=== PATIENT | male | born 1950 | race Caucasian/White ===

== ENCOUNTER 2020-11-22 00:19 | Inpatient (IN) | payer MEDICARE, SELFPAY ==
[2020-11-22] VITALS (12 sets, daily range): BP systolic 104–166; BP diastolic 68–84; PULSE 54–118; RESP 18–27; TEMP 36.4–37.3; O2SAT 91–99; BMI 31.0; BMI 31.4
--- NOTE | 2020-11-22 | ECG_ITS ---
Test Reason : CP Blood Pressure : / mmHG Vent. Rate : 096 BPM Atrial Rate : 096 BPM P-R Int : 144 ms QRS Dur : 084 ms QT Int : 342 ms P-R-T Axes : 033 -13 085 degrees QTc Int : 432 ms Sinus rhythm with Premature atrial complexes Minimal voltage criteria for LVH, may be normal variant Nonspecific ST and T wave abnormality Abnormal ECG No previous ECGs available Referred By: Generic ED Physician Electronically Signed By:LOU LOZOYA
--- NOTE | ~2020-11-22 | MR_ITS ---
EXAMINATION: MR BRAIN WITHOUT AND WITH CONTRAST CLINICAL INFORMATION: Bacteremic. Altered mental status. Septic emboli. COMPARISON: None available. TECHNIQUE: MRI of the brain was obtained using routine sequences without and following the administration of 9 mL of Gadavist intravenous contrast. FINDINGS: No focal restricted diffusion is demonstrated to suggest acute or subacute cerebral ischemia. No evidence of acute or chronic hemorrhagic products on heme-sensitive imaging. Scattered periventricular and deep white matter T2 FLAIR hyperintensities consistent with mild underlying microangiopathy. Proportional prominence of the ventricles and sulcal spaces without evidence of obstructive hydrocephalus. No abnormal mass effect. No midline shift. Normal appearance of the pituitary gland. Mildly prominent CSF space posterior to the cerebellum. Normal positioning of the cerebellar tonsils. Normal arterial and venous vascular flow voids are present. No abnormal contrast enhancement. Normal, homogeneous marrow signal. Mild mucosal thickening of the paranasal sinuses. No signal abnormalities within the mastoids. MR/MR head/brain wo/w con IMPRESSION: 1. No acute intracranial abnormalities. No abnormal intracranial enhancement. 2. 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
--- NOTE | ~2020-11-22 | CT_ITS ---
EXAMINATION: CT LUMBAR SPINE CLINICAL INFORMATION: Follow-up psoas abscess. COMPARISON: CT lumbar spine from 11/29/[address] guided drainage imaging from 11/30/2020. TECHNIQUE: Multidetector CT imaging examination of the lumbar spine was performed with intravenous administration of 85 mL Omnipaque 350. No contrast reaction reported. This CT examination was performed using dose optimization techniques as appropriate, variously including the following: *Automated exposure control *Adjustment of mA and/or kV according to patient size (this includes techniques or standardized protocols for targeted exams where dose is matched to indication/reason for exam; i.e. extremities or head) *Use of iterative reconstruction technique DLP: 447 mGy-cm FINDINGS: Again noted is multilevel degenerative arthropathy of lumbar spine. The vertebral body heights are maintained. No acute fractures. Degenerative disc disease is severe at L1-L2 and L5-S1 (as manifest by marked loss of disc space, vacuum disc phenomenon, endplate sclerosis, degenerative endplate irregularity and osteophyte formation). No evidence of acute erosive changes at the vertebral endplates. The intervertebral disc heights are maintained at L2-L3, L3-L4 and L4-L5. Mild vacuum disc phenomenon at L4-L5. Again noted is mild degenerative retrolisthesis at L1-L2 and 0.5 cm grade 1 anterolisthesis at L5-S1. The facet osteoarthritis is severe at L5-S1. At L4-L5, disc bulge, ligamentum flavum hypertrophy and facet hypertrophy cause multifactorial spinal canal stenosis. The bulging disc encroaches upon the neural foramina and causes mild right and at least moderate left neural foraminal stenosis at the L4-L5 level. At L5-S1, the degenerative changes cause mild narrowing of the central spinal canal. There is severe bilateral neural foraminal stenosis at L5-S1 with disc osteophyte complex impinging upon the right and left exiting L5 nerve roots. A small amount of fluid noted medial to the right psoas muscle at the L4-L5 level is unchanged. Also, there are persistent patchy areas of fluid lateral to the right psoas muscle. The most proximal pocket of fluid currently measures approximately 1.9 x 2.6 cm (image 35, series 7), compared to 1.6 x 2.7 cm on 11/29/2020. The next lower pocket of fluid lateral to the psoas currently measures 1.9 x 2.6 cm, compared to 1.9 x 2.6 cm on prior exam. Further inferiorly, at the L4 level lateral to the psoas, there are two other pockets of fluid that currently measure 1.6 x 2.2 cm and 1.9 x 2.3 cm (compared to 1.5 x 1.6 cm and 1.7 x 2.1 cm on 11/29/2020). CT/CT lumbar spine w con IMPRESSION: * No new pathology in the degenerated lumbar spine compared to 11/29/2020. * Degenerative disc disease is severe at L1-L2 and L5-S1. There is multifactorial spinal canal stenosis at L4-L5. * Neural foraminal stenosis is severe bilaterally at L5-S1. * No new vertebral endplate erosions. No CT imaging evidence of infectious discitis or osteomyelitis. * A small amount of fluid medial to the right psoas muscle at the L4 level is unchanged. The other patchy pockets of fluid lateral to the right psoas muscle are either stable or slightly increased in size compared to 11/29/2020.
--- NOTE | ~2020-11-22 | CT_ITS ---
EXAMINATION: CT SOFT TISSUE NECK WITH CONTRAST CLINICAL INFORMATION: Abnormal gallium scan. Sepsis. COMPARISON: Gallium scan 11/25/2020. TECHNIQUE: Following the intravenous administration of 60 mL of Omnipaque 350 intravenous contrast, helical imaging was performed in the axial plane with generation of coronal and sagittal reformatted images. This CT examination was performed using dose optimization techniques as appropriate, variously including the following: *Automated exposure control *Adjustment of mA and/or kV according to patient size (this includes techniques or standardized protocols for targeted exams where dose is matched to indication/reason for exam; i.e. extremities or head) *Use of iterative reconstruction technique DLP: 643 mGy-cm FINDINGS: There are mildly prominent lymph nodes at multiple levels in the neck bilaterally, as well as in the bilateral supraclavicular regions. There is mild stranding in the supraclavicular fat. There is hazy increased attenuation around the thyroid gland bilaterally and in the superior mediastinum. There are no focal fluid collections. The parotid glands are homogeneous in attenuation. The submandibular glands are normal. No contour abnormality or pathologic enhancement is seen within the oral cavity or pharyngeal mucosal space. The laryngeal structures are normal. There is good opacification of the vascular structures. There are mild atheromatous calcifications of the bilateral carotid bifurcations. No extra mucosal soft tissue mass or fluid collection is seen. No retropharyngeal fluid collection is seen. The thyroid gland itself is normal in size. There is no mediastinal lymphadenopathy. There are trace left and small right pleural effusions. There are emphysematous changes in the lungs bilaterally. The mastoid air cells and the paranasal sinuses are well-aerated. The temporomandibular joints are normal. No periapical disease is identified. There are no acute osseous findings. There are multilevel spondylitic changes in the cervical spine. The carotid canals are covered by markedly thin bone in the sphenoid sinuses bilaterally. There is a shaggy cisterna magna. The imaged portions of the brain parenchyma are unremarkable. CT/CT soft tissue neck w con IMPRESSION: 1. There is no cervical lymphadenopathy, but there are multiple small lymph nodes at multiple levels in the neck. 2. There is increased attenuation in the supraclavicular fat bilaterally, and there is hazy increased attenuation around the thyroid gland bilaterally and in the superior mediastinum. These findings are nonspecific and may be consistent with an inflammatory process. 3. There are pleural effusions bilaterally as described above. There are emphysematous changes in the upper lung benitez.
--- NOTE | ~2020-11-22 | CT_ITS ---
EXAMINATION CT CHEST, ABDOMEN AND PELVIS WITHOUT CONTRAST CLINICAL INFORMATION: Chest and abdominal pain. Elevated white blood cell count. COMPARISON: None. TECHNIQUE: Multidetector volumetric CT imaging of the chest, abdomen and pelvis without the use of intravenous contrast. Coronal and sagittal reformats were reviewed. This CT examination was performed using dose optimization techniques as appropriate, variously including the following: *Automated exposure control *Adjustment of mA and/or kV according to patient size (this includes techniques or standardized protocols for targeted exams where dose is matched to indication/reason for exam; i.e. extremities or head) *Use of iterative reconstruction technique DLP: 1044 mGy-cm. FINDINGS: CHEST LUNGS/PLEURA: The lungs are clear with no evidence of inflammation or nodules. There is no pleural effusion. No pleural mass or thickening. MEDIASTINUM/RUDOLPH: Normal heart size. No pericardial effusion. Coronary calcifications. No mediastinal or hilar adenopathy. CHEST WALL/AXILLA: Unremarkable. ABDOMEN/PELVIS HEPATOBILIARY: Liver normal in size, contour and morphology. No suspicious lesions. No intra or extrahepatic biliary dilation. Gallbladder unremarkable. PANCREAS: Unremarkable. SPLEEN: Unremarkable. ADRENAL GLANDS: There is a 2.6 cm nodule within the right adrenal gland with attenuation of 14 Hounsfield units. Left adrenal gland is normal. KIDNEYS, URETERS AND BLADDER: Kidneys are normal in size, axis and morphology. There are numerous bilateral nonobstructive intrarenal calculi, numbering at least 9 within the left kidney and 6 within the right kidney. The largest calculi within the left kidney measure 10 x 5 mm within the upper pole and 4 mm within the lower pole. Largest calculus within the right kidney measures 3 mm. No ureteral calculi. No hydronephrosis. There are bilateral simple fluid attenuating renal cortical and parapelvic cysts which are benign and require no further follow-up. GASTROINTESTINAL TRACT: No bowel related abnormalities. PELVIC VISCERA: Mild prostatomegaly. Seminal vesicles unremarkable. LYMPH NODES: No lymphadenopathy. PERITONEUM/BODY WALL: No peritoneal implants. No ascites. VASCULAR STRUCTURES: Unremarkable. OSSEOUS STRUCTURES No acute or suspicious osseous abnormalities. CT/CT abdomen pelvis wo con IMPRESSION: * No etiology for the patient's symptomatology is identified. * Bilateral nonobstructive intrarenal calculi as described. * Incidental 2.6 cm right adrenal nodule with lobe of indeterminate attenuation of [address] adrenal mass protocol on a nonemergent basis for further evaluation.
--- NOTE | ~2020-11-22 | XR_ITS ---
EXAMINATION: XR CHEST CLINICAL INFORMATION: Shortness of breath COMPARISON: Previous chest CT from yesterday TECHNIQUE: Frontal view of the chest was obtained. FINDINGS: The patient is rotated to the left. The cardiac and mediastinal contours are normal. The lung volumes are low. There is bibasilar atelectasis or small infiltrates, left greater than right. This appears increased from yesterday's exam. There is no significant pleural effusion. There is no pneumothorax. There are degenerative changes of the spine. XR/XR chest 1V IMPRESSION: Low lung volumes and increasing bibasilar atelectasis or small infiltrates.
--- NOTE | ~2020-11-22 | CT_ITS ---
EXAMINATION: CT ANGIOGRAM OF THE CHEST WITH AND WITHOUT CONTRAST (CT PULMONARY ANGIOGRAM FOR PE) CLINICAL INFORMATION: Reason for Exam hypoxia, tachycardia, rule out pe COMPARISON: Previous chest x-ray from earlier the same day and chest CT scan from yesterday TECHNIQUE: Prior to contrast administration, noncontrast localization images were obtained. Subsequently, multidetector volumetric imaging was performed from the thoracic inlet to below the diaphragms following the administration of 65 mL Omnipaque 350 intravenous contrast. No contrast reaction reported Sagittal, coronal, and MIP oblique sagittal reformatted images were obtained on the CT workstation, uploaded to PACS, and reviewed. This CT examination was performed using dose optimization techniques as appropriate, variously including the following: *Automated exposure control *Adjustment of mA and/or kV according to patient size (this includes techniques or standardized protocols for targeted exams where dose is matched to indication/reason for exam; i.e. extremities or head) *Use of iterative reconstruction technique Total exam dose-length product 3-4 mGy-cm FINDINGS: QUALITY OF STUDY/CONTRAST BOLUS: Satisfactory. PULMONARY ARTERIES: No central or segmental pulmonary emboli. THORACIC AORTA: No aneurysm or dissection. LUNG: There is new bilateral lower lobe atelectasis/consolidation right greater than left. PLEURA: There are new trace bilateral pleural effusions. MEDIASTINUM: The heart is enlarged. No pericardial effusion. No hilar or mediastinal lymphadenopathy. No evidence of septal bowing or right heart strain. There is oral contrast seen in the esophagus. CHEST WALL/AXILLA: No axillary or internal mammary lymphadenopathy. OSSEOUS STRUCTURES: No acute or suspicious osseous abnormality. There are degenerative changes of the spine. UPPER ABDOMEN: Stable right adrenal nodule and right renal cyst. Colon is slightly distended and extends large amount of stool. No reflux of contrast into the hepatic veins to suggest elevated right heart pressures. CT/CT angio chest PE protocol IMPRESSION: No pulmonary embolism. Low lung volumes. New atelectasis or consolidation at the lung bases and trace bilateral pleural effusions. Stable abdominal findings. VTE: negative
--- NOTE | ~2020-11-22 | CT_ITS ---
EXAMINATION: CT LUMBAR SPINE with contrast. CLINICAL INFORMATION: Bacteremia with abnormal gallium scan of lumbar spine. COMPARISON: CT abdomen pelvis 11/22/2020. Gallium scan 11/26/2020. TECHNIQUE: Axial 2 mm thin and reformatted 2 mm thin sagittal and coronal images of lumbar spine were obtained following IV 85 mL Omnipaque 350. This CT examination was performed using dose optimization techniques as appropriate, variously including the following: *Automated exposure control *Adjustment of mA and/or kV according to patient size (this includes techniques or standardized protocols for targeted exams where dose is matched to indication/reason for exam; i.e. extremities or head) *Use of iterative reconstruction technique DLP: 605 mGy-cm FINDINGS: On sagittal reconstructed images there is grade 1 anterolisthesis L5 over S1 and grade 1 retrolisthesis L1 over L2 with vacuum disc phenomena and degenerative disc changes with endplate spondylosis and sclerosis. Rest of the disc heights are preserved normal. All vertebral heights are normal. No acute fracture or lytic process seen. The L1-L2 and L2-L3 spinal canal is patent. The neural foramina are patent. At L3-L4 disc level there is mild concentric canal stenosis from combination of mild bulge and mild facet joint hypertrophy. The neural foramina are patent. At L4-L5 disc level there is moderate to significant spinal canal stenosis from a broad based diffuse bulge and moderate bilateral facet joint and ligamentum flavum hypertrophy. The neural foramina are patent bilaterally. At L5-S1 disc level there is minimal disc bulge but no spinal canal stenosis. The neural foramina is moderately narrowed bilaterally. Adjacent to this right psoas muscle is a focal area of soft tissue collection extending from mid L3 through mid L5 vertebra, new since the previous CT abdomen and pelvis exam 11/22/2020. Also visualized is slight heterogeneity within the medial right psoas muscle from L3-L4 disc level extending inferiorly to L4-L5 and mid L5 vertebra. Within the right posterior spinal muscles there is focal hypodensity on axial image 163/4. Whether this is mild heterogeneity within the muscle or a small area of infection is questioned. Otherwise the posterior spinal musculature is homogeneous.. There are bilateral peripelvic and cortical renal cyst The SI joints are symmetrical and normal. CT/CT lumbar spine w con IMPRESSION: Small soft tissue collection lateral to the right psoas muscle from L3 through mid L5 vertebra, new since previous CT abdomen exam. Question infection or inflammatory collection. Also visualized is slight hypodensity along the medial right psoas muscle adjacent to the L4-L5 disc level as described above. Question underlying inflammatory fluid collection. Moderate spinal canal stenosis L4-L5 and mild spinal canal stenosis L3-L4 disc level as described above. Results were discussed with Dr. Gordon by phone at 2:20 PM.
--- NOTE | ~2020-11-22 | CT_ITS ---
PROCEDURE: CT-GUIDED ABSCESS DRAINAGE CLINICAL INFORMATION: Right paraspinal fluid collection question abscess. COMPARISON: CT abdomen exam 11/22/[address] lumbar spine 11/29/2020. TECHNIQUE: Following explaining CT-guided right paramidline abscess fluid collection drainage procedure, benefits and risk, a written consent was obtained. Patient was placed in left lateral decubitus view and preliminary CT imaging was obtained. An optimal site was selected along the posterolateral abdomen and the site was marked. The marked site was cleaned and draped in usual sterile manner. 1% lidocaine was injected at puncture site. A 20-gauge 6 inch long needle was advanced into the right parapsoas fluid collections and abscess and a 3-pass aspiration was performed. Gopi pus was aspirated. Post procedure, the needle was withdrawn and complete hemostasis achieved. Sterile dressing applied post procedure. This CT examination was performed using dose optimization techniques as appropriate, variously including the following: *Automated exposure control. *Adjustment of mA and/or kV according to patient size (this includes techniques or standardized protocols for targeted exams where dose is matched to indication/reason for exam; i.e. extremities or head). *Use of iterative reconstruction technique. DLP: 291 mGy-cm FINDINGS: Authorization Coordinator CT of the abdomen obtained through the mid and lower lumbar spine reveals right parapsoas fluid collection extending from L3 through L4-L5 disc level. CT fluoroscopy-guided aspiration was performed of this collection and turned out to be gopi pus. Fluid collected was sent to lab for culture, sensitivity and Gram stain. CT/CT guided drainage IMPRESSION: Successful CT fluoroscopy-guided right parapsoas abscess aspiration and drainage. No catheter was left in place due to small size of the abscess. Results were conveyed Dr. Navarro by [employer].
--- NOTE | ~2020-11-22 | CT_ITS ---
EXAMINATION: CT CERVICAL SPINE WITH CONTRAST CLINICAL INFORMATION: Neck pain. Bacteremia. Concern for epidural abscess. COMPARISON: CT soft tissues of neck November 28, 2020. CT cervical spine November 22, 2020 TECHNIQUE: IV injection of 60 mL Omnipaque 350 administered. Axial images obtained through the cervical spine. Coronal and sagittal reformatted images are performed at CT scanner. This CT examination was performed using dose optimization techniques as appropriate, variously including the following: *Automated exposure control *Adjustment of mA and/or kV according to patient size (this includes techniques or standardized protocols for targeted exams where dose is matched to indication/reason for exam; i.e. extremities or head) *Use of iterative reconstruction technique DLP: 428 mGy-cm FINDINGS: There is no epidural abscess. No focal fluid collection. No abnormal enhancing lesion of the neck. No significant lymphadenopathy. There are shotty subcentimeter lymph nodes in the neck bilateral. Lung apices are normally aerated. No abnormality of the superior mediastinum. The thyroid and parotid glands are unremarkable. No abnormality of the partially visualized intracranial structures. The mastoid air cells are partially visualized and are normal. No abnormality visualized portions of nasopharynx, oropharynx or hypopharynx. The trachea is midline. There is marked multilevel degenerative spondylosis. There is multilevel disc height narrowing, vertebral endplate spurring and facet joint arthrosis CT/CT cervical spine w con IMPRESSION: 1. No acute abnormality. No evidence of epidural abscess. 2. Degenerative spondylosis of the cervical spine.
--- NOTE | ~2020-11-22 | NM_ITS ---
EXAMINATION: NUCLEAR MEDICINE GALLIUM SCAN WHOLE BODY. CLINICAL INFORMATION: Sepsis. COMPARISON: None TECHNIQUE: Following intravenous administration of 4.9 mCi 67 gallium citrate, whole body exam was obtained at 24 and 48 hours. FINDINGS: At 24 hours there is increased activity seen in the upper neck and bilateral paraspinal soft tissues in the upper and mid abdomen. No abnormal activity seen overlying the thoracic or lumbar spine. No abnormal activity seen in the chest either. At 48 hours there is persistent moderate activity seen within transverse colon, upper neck neck. There is a persistent moderate increased activity seen in the paraspinal soft tissues on posterior projection. There is no corresponding abnormality seen on the recent CT abdomen pelvis exam 11/22/2020. NM/NM gallium scan whole body IMPRESSION: Moderate upper neck activity likely inflammatory lymph nodes. Recommend CT neck exam. Nonspecific increased activity in the transverse colon could be related back to floor are at 24 and 48 hours. Mild increased activity in the paraspinal soft tissues on posterior projection at [address] abdomen pelvis with contrast. No additional areas of abnormal activity seen.
--- NOTE | ~2020-11-22 | CT_ITS ---
EXAMINATION: CT CERVICAL SPINE WITHOUT CONTRAST CLINICAL INFORMATION: Neck pain COMPARISON: None TECHNIQUE: Multidetector CT imaging of the cervical spine was performed without use of intravenous contrast. Coronal and sagittal reformats are reviewed. This CT examination was performed using dose optimization techniques as appropriate, variously including the following: *Automated exposure control *Adjustment of mA and/or kV according to patient size (this includes techniques or standardized protocols for targeted exams where dose is matched to indication/reason for exam; i.e. extremities or head) *Use of iterative reconstruction technique DLP: 436 mGy-cm FINDINGS: Atlantooccipital, atlantoaxial and cervical alignment are maintained. No acute fracture or subluxation. Vertebral body heights maintained. Endplate osteophytes present C4-C5, C5-C6 and C6-C7. Facet arthropathy present throughout the cervical spine, most notably on the left at C2-C3 and C3-C4 and on the right at C4-C5. In conjunction with uncovertebral arthrosis, this leads to at least moderate left foraminal narrowing at C3-C4 at least moderate to severe right foraminal narrowing at C4-C5, C5-C6 and C6-C7. Paraspinal soft tissues unremarkable. CT/CT cervical spine wo con IMPRESSION: No acute fracture or traumatic malalignment. Cervical spondylosis as described.
[2020-11-22 00:51] LABS: Basophils Percent Auto 0.1 % (0-2); Hematocrit 38.3 % (42-52); Hemoglobin 13.3 g/dl (14.0-18.0); Imm Gran Abs Auto 0.24 X10*3/uL (0.00-0.03); Lymphocytes Absolute Auto 0.5 X10*3/uL (1.2-4.9); Lymphocytes Percent Auto 1.8 % (20-40); MANUAL DIFF FLAG NO; Mean Corpuscular HGB Conc 34.7 g/dl (31.0-36.0); Mean Corpuscular Hemoglobin 32.4 pg (27.0-33.0); Mean Corpuscular Volume 93.4 fL (80-98); Mean Platelet Volume 9.8 fL (9.4-12.4); Monocytes Absolute Auto 1.7 X10*3/uL (0.1-1.2); Neutrophils Percent Auto 90.1 % (45-73); Platelet Count 193 X10*3/uL (160-400); Red Cell Distribution Width 12.2 % (11.0-16.0); SCAN SMEAR FLAG 1; White Blood Count 24.5 X10*3/uL (4.8-10.8)
[2020-11-22 01:08] LABS: Alanine Aminotransferase 46 U/L (0-40); Albumin Level 3.8 g/dL (3.5-5.0); Alkaline Phosphatase 112 U/L (39-117); Anion Gap 16 (12-20); Aspartate Amino Transferase 24 U/L (5-37); Bilirubin Total 1.1 mg/dL (0.0-1.0); Blood Urea Nitrogen 49 mg/dL (9-16); Calcium 9.7 mg/dL (8.4-10.2); Carbon Dioxide 26 mmol/L (22-29); Chloride 102 mmol/L (96-108); Estimated Glomerular Filt Rate 30; Glucose Random 154 mg/dL (60-115); Potassium 3.6 mmol/L (3.3-5.1); Sodium 140 mmol/L (135-145); Total Protein 6.5 g/dL (6.5-8.0)
[2020-11-22 01:09] LABS: Troponin-I High Sensitivity 5.6 ng/L (<3.5-35.0)
[2020-11-22 01:20] LABS: COVID-19 Test Negative (Negative); IDNOW Serial# 9DD0AD1C
--- NOTE | 2020-11-22 01:22 | ED_ITS ---
HPI - Chest Pain General Chief Complaint: Chest Pain Stated Complaint: Chest pain Time Seen by Provider: 11/22/20 01:14 Source: patient Mode of arrival: ambulatory Limitations: no limitations History of Present Illness HPI narrative: 70 y/o male with history of HTN, chronic back pain, kidney stones who presents to the ER from home c/o generalized abdominal pain that stated at 6-7pm last night. About 2 hours later he developed band-llike sharp chest pain across his chest. He has no nausea, vomiting or diarrhea. Last BM was 2 days ago. Not passing any gas. No history of abdominal surgeries or bowel obstructions. He also reports upper back pain that radiates into his neck and ears. He is having spasms in his back, worse with any movement. MD complaint: chest pain and other (abdominal pain) Onset (ago): hour(s) Timing of current episode: constant Prior episodes: No Onset: during rest Pain location: left chest and right chest Pain radiation: none Severity: moderate Quality: sharp Relieving factors: nothing Exacerbating factors: movement Associated symptoms: diaphoresis Treatment prior to arrival: none Risk Factors Coronary artery disease risk factors: hypertension Related Data Allergies Allergy/AdvReac Type Severity Reaction Status Date / Time oxycodone AdvReac Itching Verified 11/22/20 00:30 Review of Systems Constitutional: Constitutional: Reports body ache(s), Denies chills, Denies fever(s) and Reports headache(s) Eyes: Eyes: Reports no additional eye complaints ENT: Reports Normal hearing present, Denies dental pain, Denies dizziness, Denies ear discharge, Reports otalgia, Reports headache(s), Denies hearing loss, Denies nasal congestion, Reports neck pain, Denies tinnitus and Denies sore throat Cardiovascular: Cardiovascular: Reports Abdominal Distension, Reports chest pain, Reports chest pain at rest, Reports Epigastric Pain, Denies leg edema, Denies lightheadedness and Denies dyspnea Respiratory: Respiratory: Denies chest congestion, Denies cough, Denies dyspnea and Denies wheezing Gastrointestinal: Gastrointestinal: Reports abdominal pain, Reports bloating, Reports constipation, Denies diarrhea, Denies nausea and Denies vomiting Genitourinary: Genitourinary: Denies dysuria and Denies flank pain Musculoskeletal: Musculoskeletal: Reports back pain, Reports myalgias, Reports muscle cramps, Reports neck pain and Reports stiffness Integumentary/Breasts: Skin/Breast: Denies rash Neurologic: Reports Normal hearing present, Denies dizziness and Reports headache(s) Hematologic/Lymphatic: Hematologic/Lymphatic: Denies easy bleeding and Denies easy bruising Allergic/Immunologic: Allergic/Immunologic: Denies wheezing PMFSH Social History Social History Advance Directives: No Advance Directives Information Provided: Yes Physical Exam Vital Signs: Vital Signs: Last Vital Signs Temp 97.6 F 11/22/20 00:30 Pulse 100 11/22/20 00:30 Resp 24 H 11/22/20 00:30 BP 119/77 11/22/20 00:30 Pulse Ox 99 11/22/20 00:30 Body Mass Index 31.0 Const: General: cooperative, well developed, alert, awake, acute distress (appears uncomfortable, grimacing) moderate, diaphoretic and ill appearing acutely Nutritional Appearance: average body habitus and well nourished Orientation/consciousness: patient oriented x3 Limitations: no limitations HENMT: Head: Yes normal to inspection, Yes normocephalic and Yes atraumatic Ears: hearing grossly normal bilaterally, external ears normal, TM's normal bilaterally and EAC's normal General nose exam: Normal external nose present and Normal nares present Face and sinus: Yes normal facial exam and Yes face symmetric Mouth: Normal oral and palatal mucosa present, lip normal, tongue normal and moist mucous membranes Teeth and gingiva: dentition normal and g ingiva normal Throat: Yes posterior oropharynx normal, Yes tonsils normal and Yes uvula midline Eyes: General: appearance normal, both eyes and all related structures Pupils: Equal, round and reactive pupils present EOM: EOMs intact bilaterally Neck: Neck: Yes normal visual inspection, Yes full ROM, Yes no lym phadenopathy, Yes no meningeal signs, Yes trachea midline and Yes tender (soft tissues posteriorly ) Chest: Chest palpation & inspection: normal inspection of the chest and normal palpation of entire chest wall Resp: Effort & Inspection: able to speak in complete sentences and labored Auscultation: clear to auscultation bilaterally Cardio: Rate: regular rate Rhythm: regular rhythm Heart sounds: S1 normal heart sound present and S2 normal heart sound present GI: Inspection: Yes distended Palpation (GI): Firmness to palpation present (GI) in the LUQ and in the RUQ, Tenderness to palpation present (GI) in the LLQ, in the RLQ, in the LUQ and in the RUQ, Guarding due to palpation present (GI), not rigid and No hepatosplenomegaly present Percussion: Yes tympanic to percussion Auscultation: Hypoactive bowel sounds present Rectal Exam - Male: Yes deferred : General: Yes no CVA tenderness Back/Spine/Pelvis: Back: no CVA tenderness Cervical Spine: normal cervical lordosis, cervical muscular tenderness and No Cervical spine tenderness Tho racic/Lumbar Spine: thoracic and lumbar spine normal to inspection and thoraco- lumbar spasm on the right in the mid thoracic Pelvis: no pain with anterior-posterior compression Skin: General skin exam: no rashes or lesions noted Neuro: General: patient oriented x3, moves all extremities and no meningeal signs Cranial nerves: Yes Equal, round and reactive pupils present and Yes Normal hearing present Extrem: General: Yes normal to inspection, Yes no pedal edema and Yes no calf tenderness Psych: Appearance: grossly normal and well kempt Mental Status: mental status grossly normal Speech and movement: Clear speech present Attitude: cooperative Course Course Course Narrative: 70 y/o male with history of HTN, kidney stones and chronic back pain presenting with chest and abdominal pain since last night. Also c/o upper back, neck and ear pain. He is diaphoretic and appears uncomfortable. He reports neck and abd pain are worse than the chest pain currently. Basic lab workup initiated and showing WBC 24.5, BUN/Cr 49/2.16. EKG without STEMI and troponin 5.6. Unknown baseline kidney function but he denies history of CKD. IVF ordered as well as CT chest/abd/pelvis, concern for bowel obstruction. IV dilaudid ordered, will reassess. He will require admission to the hospital. Signed out to Dr. Mathis who will assume care. MDM - Chest Pain Lab Data Attestation: I reviewed the patient's lab results. Result diagrams: 11/22/20 00:45 11/22/20 00:45 Labs: Lab Results 11/22/20 11/22/20 11/22/20 Range/Units 00:45 00:45 00:45 WBC 24.5 H (4.8-10.8) X10*3/uL RBC 4.10 L (4.60-5.80) X10*6/uL Hgb 13.3 L (14.0-18.0) g/dl Hct 38.3 L (42-52) % MCV 93.4 (80-98) fL MCH 32.4 (27.0-33.0) pg MCHC 34.7 (31.0-36.0) g/dl RDW 12.2 (11.0-16.0) % Plt Count 193 (160-400) X10*3/uL MPV 9.8 (9.4-12.4) fL Immature Gran % (Auto) 1.0 H (0.0-0.4) % Neut % (Auto) 90.1 H (45-73) % Lymph % (Auto) 1.8 L (20-40) % [place] % (Auto) 7.0 (2-11) % Eos % (Auto) 0.0 (0-4) % Baso % (Auto) 0.1 (0-2) % Lymph # (Auto) 0.5 L (1.2-4.9) X10*3/uL [place] # (Auto) 1.7 H (0.1-1.2) X10*3/uL Eos # (Auto) 0.0 (0.0-0.4) X10*3/uL Baso # (Auto) 0.0 (0.0-0.2) X10*3/uL Abs Immat Gran (auto) 0.24 H (0.00-0.03) X10*3/uL Absolute Neuts (auto) 22.0 H (2.0-8.3) X10*3/uL Absolute Nucleated RBC 0.000 (0.0-0.012) X10*3/uL Nucleated RBC % (auto) 0.0 (0.0-0.2) /100WBC Sodium 140 (135-145) mmol/L Potassium 3.6 (3.3-5.1) mmol/L Chloride 102 (96-108) mmol/L Carbon Dioxide 26 (22-29) mmol/L Anion Gap 16 (12-20) BUN 49 H (9-16) mg/dL Creatinine 2.16 H (0.5-1.4) mg/dL Estim Creat Clear Calc 32.0 Estimated GFR 30 Random Glucose 154 H (60-115) mg/dL Calcium 9.7 (8.4-10.2) mg/dL Total Bilirubin 1.1 H (0.0-1.0) mg/dL AST 24 (5-37) U/L ALT 46 H (0-40) U/L Alkaline Phosphatase 112 (39-117) U/L Troponin I High Sens 5.6 (<3.5-35.0) ng/L Total Protein 6.5 (6.5-8.0) g/dL Albumin 3.8 (3.5-5.0) g/dL COVID-19 (CADE) (Negative) COVID-19 Clin Com 11/22/20 Range/Units 01:00 WBC (4.8-10.8) X10*3/uL RBC (4.60-5.80) X10*6/uL Hgb (14.0-18.0) g/dl Hct (42-52) % MCV (80-98) fL MCH (27.0-33.0) pg MCHC (31.0-36.0) g/dl RDW (11.0-16.0) % Plt Count (160-400) X10*3/uL MPV (9.4-12.4) fL Immature Gran % (Auto) (0.0-0.4) % Neut % (Auto) (45-73) % Lymph % (Auto) (20-40) % [place] % (Auto) (2-11) % Eos % (Auto) (0-4) % Baso % (Auto) (0-2) % Lymph # (Auto) (1.2-4.9) X10*3/uL [place] # (Auto) (0.1-1.2) X10*3/uL Eos # (Auto) (0.0-0.4) X10*3/uL Baso # (Auto) (0.0-0.2) X10*3/uL Abs Immat Gran (auto) (0.00-0.03) X10*3/uL Absolute Neuts (auto) (2.0-8.3) X10*3/uL Absolute Nucleated RBC (0.0-0.012) X10*3/uL Nucleated RBC % (auto) (0.0-0.2) /100WBC Sodium (135-145) mmol/L Potassium (3.3-5.1) mmol/L Chloride (96-108) mmol/L Carbon Dioxide (22-29) mmol/L Anion Gap (12-20) BUN (9-16) mg/dL Creatinine (0.5-1.4) mg/dL Estim Creat Clear Calc Estimated GFR Random Glucose (60-115) mg/dL Calcium (8.4-10.2) mg/dL Total Bilirubin (0.0-1.0) mg/dL AST (5-37) U/L ALT (0-40) U/L Alkaline Phosphatase (39-117) U/L Troponin I High Sens (<3.5-35.0) ng/L Total Protein (6.5-8.0) g/dL Albumin (3.5-5.0) g/dL COVID-19 (CADE) Negative (Negative) COVID-19 Clin Com See Note ECG Data ECG #1: Attestation: I personally reviewed and interpreted this ECG as follows: ECG interpretation date: 11/22/20 ECG interpretation time: 02:07 Interpretation: normal sinus rhythm with PACs, HR 96 bpm, normal ME interval, nonspecific ST & T wave abnormality, no ST segment elevations. Discharge Plan Discharge Clinical Impression: Abdominal pain, Chest pain
[2020-11-22] MEDS: 0.9 % Sodium Chloride 1,000 ML 999 ML IVCONT (01:37)
[2020-11-22] MEDS: HYDROmorphone HCl 0.5 MG/0.5 ML SYRINGE IVPUSH ×4 (01:57→15:26)
[2020-11-22 02:08] LABS: Lactic Acid 1.5 mmol/L (0.5-2.0)
--- NOTE | 2020-11-22 02:14 | PC.NURSE ---
Labs collected and sent. pt medicated per May. provider is aware of pain. Medicated for pain management with some relief. Ua collected and sent.
[2020-11-22 02:15] LABS: Lipase 9 U/L (8-78)
[2020-11-22] MEDS: Piperacillin Sodium/Tazobactam 3.375 GM in 0.9 % Sodium Chloride 50 ML IV (02:44)
[2020-11-22 02:53] LABS: Glucose Urine UA NEG (NEG); Leukocyte Esterase Urine NEG (NEG); Nitrite Urine NEG (NEG); Specific Gravity - Urine 1.025 (1.005-1.025); UACC Culture Trigger NO; Urine Blood TRACE (NEG); Urine Ketones 5 MG/DL (NEG); Urine Protein 1+ MG/DL (NEG-TRACE)
[2020-11-22 02:57] LABS: Appearance Urine CLEAR; Color Urine YELLOW
[2020-11-22 03:05] LABS: Bacteria Urine 1+ /LPF; Mucus Urine 1+ /LPF; Squamous Epithelial Cell Urine 1+ /LPF
[2020-11-22 03:14] LABS: Erythrocyte Sedimentation Rate 53 MM/HR (0-15)
--- NOTE | 2020-11-22 03:43 | P.HPHOSP_ITS ---
History of Present Illness Date of Service: 11/22/20 Chief Complaint: Abdominal pain A 70-year-old male with a past medical history of hypertension, renal calculi, chronic back pain presented to the hospital with a chief complaint of abdominal pain. Patient reported until yesterday he has been doing well today he noted severe abdominal pain diffusely; denied any associated nausea vomiting. Mentioned that he did not have any bowel movement over the past couple days; has been passing gas. Denies any fever chills or cough. Reports he has generalized body aches; Patient mentioned that he has chronic back pain and gets steroid injections in the low back-lost received about 2 weeks ago; Review of all other systems is negative except mentioned above ER course: Per ER team patient on presentation noted to be toxic appearing; diaphoretic and in discomfort; CT chest abdomen pelvis showed no acute findings except for incidental finding of adrenal nodule; Lab showed leukocytosis of 24; afebrile; urinalysis showed WBC of 5 to 9; leukocyte esterase negative and nitrite negative. Patient received Zosyn. Bloo d cultures were sent. Admitted for further management. [facility] Social History Household Members: None Housing: Other Housing Other:: room at a boarding house Alcohol intake: current Alcohol intake frequency: holidays/special occasions only Patient Tobacco Use Status: Never used Tobacco Use of substances other than those prescribed or required for medical reasons: No Have you been hit, kicked, punched, or otherwise hurt by someone within the past year? If so, by whom?: No Do you feel safe in your current relationship?: No Current Relationship Is there a partner from a previous relationship who is making you feel unsafe n ow?: No Are you made to feel afraid or neglected: No Advance Directives: No Advance Directives Information Provided: Yes Do you have thoughts of harming others: None Do you have a plan to hurt others: No Plan Recently lost weight without trying: No Nutrition Risks: No Nutritional Risk Meds Allergies Allergy/AdvReac Type Severity Reaction Status Date / Time oxycodone AdvReac Itching Verified 11/22/20 00:30 Active Medications: Current Medications Generic Name Dose Route Start Last Admin Trade Name Freq PRN Reason Stop Dose Admin Acetaminophen 650 mg 11/22/20 03:35 Acetaminophen 325 Mg Tablet PO Q6H PRN Pain, Mild (Pain Scale 1-3) Heparin Sodium (Porcine) 5,000 unit 11/22/20 03:45 Heparin Sodium,Porcine 5,000 Unit/Ml Vial SUBCUT Q8H [facility] Dextrose/Sodium Chloride 1,000 mls @ 100 mls/hr 11/22/20 03:45 D5ns IVCONT .Q10H [facility] Piperacillin Sod/Tazobactam 50 mls @ 100 mls/hr 11/22/20 03:45 Sod 3.375 gm/ Sodium Chloride IV Q6H [facility] Melatonin 6 mg 11/22/20 03:35 Melatonin 3 Mg Tablet PO BEDTIME PRN Insomnia Pharmacy Consult 1 each 11/22/20 01:15 Consult Rx Perform Med Rec MISCELLANE ONCE PRN Consult order Senna 17.2 mg 11/22/20 03:35 Sennosides 8.6 Mg Tablet PO BEDTIME PRN Constipation Sodium Chloride 3 ml 11/22/20 08:00 0.9 % Sodium Chloride Flush 3 Ml Syringe IVFLUSH QSHIFT [facility] Home Medications Medication Instructions Recorded Confirmed Last Taken Type amlodipine 5 mg tablet 1 tab PO DAILY 11/22/20 11/22/20 11/21/20 History atorvastatin 20 mg tablet 1 tab PO BEDTIME 11/22/20 11/22/20 11/21/20 History bupropion HCl 150 mg 24 hr tablet, 1 tab PO QAM 11/22/20 11/22/20 11/21/20 History extended release gabapentin 300 mg capsule mg PO 11/22/20 11/21/20 History hydrochlorothiazide 25 mg tablet 1 tab PO DAILY 11/22/20 11/22/20 11/21/20 History lisinopril 10 mg tablet 1 tab PO DAILY 11/22/20 11/22/20 11/21/20 History Physical Exam Vital Signs and Narrative: Vital Signs: Last Vital Signs Temp 97.6 F 11/22/20 00:30 Pulse 54 11/22/20 02:52 Resp 21 H 11/22/20 02:52 BP 166/84 H 11/22/20 02:52 Pulse Ox 99 11/22/20 00:30 Body Mass Index 31.0 Gen: Appears be in no acute distress HEENT: NCAT, Moist mucosa. Pulmonary: Coarse breath sounds, fair air entry CVS: Normal S1-S2 Abdomen: BS+, Soft, Nontender; do Extremities: Warm well perfused Neuro: Alert and awake. Results Labs CBC and Chem 7: 11/22/20 00:45 11/22/20 00:45 Labs: Laboratory Results - last 24 hr 11/22/20 11/22/20 11/22/20 00:45 00:45 00:45 MCV 93.4 MCH 32.4 MCHC 34.7 RDW 12.2 Plt Count 193 MPV 9.8 Immature Gran % (Auto) 1.0 H Neut % (Auto) 90.1 H Lymph % (Auto) 1.8 L [place] % (Auto) 7.0 Eos % (Auto) 0.0 Baso % (Auto) 0.1 Lymph # (Auto) 0.5 L [place] # (Auto) 1.7 H Eos # (Auto) 0.0 Baso # (Auto) 0.0 Abs Immat Gran (auto) 0.24 H Absolute Neuts (auto) 22.0 H Absolute Nucleated RBC 0.000 Nucleated RBC % (auto) 0.0 ESR Anion Gap 16 Estim Creat Clear Calc 32.0 Estimated GFR 30 Random Glucose 154 H Lactic Acid Calcium 9.7 Total Bilirubin 1.1 H AST 24 ALT 46 H Alkaline Phosphatase 112 Total Creatine Kinase 58 Troponin I High Sens 5.6 C-Reactive Protein 19.30 H Total Protein 6.5 Albumin 3.8 Lipase 9 Urine Color Urine Appearance Urine pH Ur Specific [place] Urine Protein Urine Glucose (UA) Urine Ketones Urine Blood Urine Nitrite Ur Leukocyte Esterase Urine RBC Urine WBC Ur Squamous Epith Cells Urine Bacteria Hyaline Casts Urine Mucus COVID-19 (CADE) COVID-19 Clin Com 11/22/20 11/22/20 11/22/20 00:45 01:00 01:48 MCV MCH MCHC RDW Plt Count MPV Immature Gran % (Auto) Neut % (Auto) Lymph % (Auto) [place] % (Auto) Eos % (Auto) Baso % (Auto) Lymph # (Auto) [place] # (Auto) Eos # (Auto) Baso # (Auto) Abs Immat Gran (auto) Absolute Neuts (auto) Absolute Nucleated RBC Nucleated RBC % (auto) ESR 53 H Anion Gap Estim Creat Clear Calc Estimated GFR Random Glucose Lactic Acid 1.5 Calcium Total Bilirubin AST ALT Alkaline Phosphatase Total Creatine Kinase Troponin I High Sens C-Reactive Protein Total Protein Albumin Lipase Urine Color Urine Appearance Urine pH Ur Specific [place] Urine Protein Urine Glucose (UA) Urine Ketones Urine Blood Urine Nitrite Ur Leukocyte Esterase Urine RBC Urine WBC Ur Squamous Epith Cells Urine Bacteria Hyaline Casts Urine Mucus COVID-19 (CADE) Negative COVID-19 Clin Com See Note 11/22/20 02:48 MCV MCH MCHC RDW Plt Count MPV Immature Gran % (Auto) Neut % (Auto) Lymph % (Auto) [place] % (Auto) Eos % (Auto) Baso % (Auto) Lymph # (Auto) [place] # (Auto) Eos # (Auto) Baso # (Auto) Abs Immat Gran (auto) Absolute Neuts (auto) Absolute Nucleated RBC Nucleated RBC % (auto) ESR Anion Gap Estim Creat Clear Calc Estimated GFR Random Glucose Lactic Acid Calcium Total Bilirubin AST ALT Alkaline Phosphatase Total Creatine Kinase Troponin I High Sens C-Reactive Protein Total Protein Albumin Lipase Urine Color YELLOW Urine Appearance CLEAR Urine pH 6.0 Ur Specific [place] 1.025 Urine Protein 1+ H Urine Glucose (UA) NEG Urine Ketones 5 Urine Blood TRACE Urine Nitrite NEG Ur Leukocyte Esterase NEG Urine RBC 1-4 Urine WBC 5-9 H Ur Squamous Epith Cells 1+ Urine Bacteria 1+ Hyaline Casts 1-4 Urine Mucus 1+ COVID-19 (CADE) COVID-19 Clin Com Imaging Radiologist's Impressions: Impressions Abdomen/Pelvis CT 11/22/20 01:14 IMPRESSION: * No etiology for the patient's symptomatology is identified. * Bilateral nonobstructive intrarenal calculi as described. * Incidental 2.6 cm right adrenal nodule with lobe of indeterminate attenuation of [address] adrenal mass protocol on a nonemergent basis for further evaluation. Chest CT 11/22/20 01:14 IMPRESSION: * No etiology for the patient's symptomatology is identified. * Bilateral nonobstructive intrarenal calculi as described. * Incidental 2.6 cm right adrenal nodule with lobe of indeterminate attenuation of [address] adrenal mass protocol on a nonemergent basis for further evaluation. Cervical Spine CT 11/22/20 02:21 IMPRESSION: No acute fracture or traumatic malalignment. Cervical spondylosis as described. Assessment and Plan (1) Abdominal pain: Qualifiers: Abdominal location: generalized Qualified Code(s): R10.84 - Generalized abdominal pain Status: Acute 70-year-old male with a past medical history of hypertension, renal calculi, chronic back pain presented to the hospital with a chief complaint of diffuse abdominal pain. Abdominal pain: Improving symptomatically. CT scan showed no acute intra- abdominal process. Lipase negative. CT scan showed intra renal stone; Urinalysis-showed pyuria but negative leukocyte esterase and nitrites. DIEGO: Unknown baseline. Avoid nephrotoxins. Gentle IV fluids. Leukocytosis: Patient a febrile. But on presentation patient was diaphoretic, tachypneic; empirically started on Zosyn. ID Consult History of hypertension: Continue amlodipine. Hold home lisinopril and hydrochlorothiazide. DVT prophylaxis:[facility] Full code Quality Stroke Does the patient have a stroke diagnosis?: No VTE Prior VTE?: No VTE Risk Level:: Medical - moderate - high VTE Device Contraindication: Treatment Not Indicated VTE Drug Contraindication: N/A - Med Ordered
--- NOTE | 2020-11-22 04:04 | PC.NURSE ---
Provider in to assess pt. Ct of the neck completed after continual discomfort. Labs drawn sent. Will continue to monitor.
--- NOTE | 2020-11-22 04:06 | PC.NURSE ---
Called to give report, Candy unavailable to take report at this time. Will call back.
[2020-11-22 04:17] LABS: D Dimer 2782 NG/ML; Troponin-I High Sensitivity 4.2 ng/L (<3.5-35.0)
[2020-11-22] MEDS: Dextrose 5 % and 0.9 % NaCl 1,000 ML 100 ML IVCONT (05:23)
[2020-11-22] MEDS: Heparin Sodium,Porcine 5,000 UNIT/ML VIAL 5000 UNIT SUBCUT ×3 (05:23→20:11)
[2020-11-22 06:46] LABS: Hematocrit 38.2 % (42-52); Hemoglobin 13.2 g/dl (14.0-18.0); Mean Corpuscular HGB Conc 34.6 g/dl (31.0-36.0); Mean Corpuscular Hemoglobin 32.5 pg (27.0-33.0); Mean Corpuscular Volume 94.1 fL (80-98); Mean Platelet Volume 10.1 fL (9.4-12.4); Platelet Count 186 X10*3/uL (160-400); Red Blood Count 4.06 X10*6/uL (4.60-5.80); Red Cell Distribution Width 12.2 % (11.0-16.0); White Blood Count 23.6 X10*3/uL (4.8-10.8)
[2020-11-22 07:14] LABS: Anion Gap 18 (12-20); Blood Urea Nitrogen 46 mg/dL (9-16); Calcium 9.3 mg/dL (8.4-10.2); Carbon Dioxide 22 mmol/L (22-29); Chloride 101 mmol/L (96-108); Creatinine Clr Calc Pharmacy 39.2; Estimated Glomerular Filt Rate 38; Glucose Random 148 mg/dL (60-115); Sodium 138 mmol/L (135-145)
[2020-11-22 07:15] LABS: Band Neutrophils Percent 25 % (3-5); Monocytes Absolute Manual 0.2 X10*3/uL (0.0-1.2); Monocytes Percent Manual 1 % (2-11); Neutrophils Absolute Manual 23.4 X10*3/uL (2.2-7.9); Neutrophils Percent Manual 74 % (45-73)
[2020-11-22 07:18] LABS: Burr Cells 1+ (0-2) /OIF; Ovalocytes 1+ (5-14) /OIF; Platelet Estimate NORMAL (NORMAL); Platelet Morphology Comment NORMAL; RBC Morphology NOTED; Tear Drop Cells 1+ (0-2) /OIF
[2020-11-22] MEDS: 0.9 % Sodium Chloride Flush 3 ML SYRINGE IVFLUSH (09:24)
[2020-11-22] MEDS: buPROPion HCl XL 150 MG TAB.ER.24H PO (09:24)
[2020-11-22] MEDS: amLODIPine Besylate 5 MG TABLET PO (09:24)
[2020-11-22] MEDS: Potassium Chloride ER 20 MEQ TAB.ER.PRT 40 MEQ PO (09:24)
[2020-11-22] MEDS: Piperacillin Sodium/Tazobactam 2.25 GM in 0.9 % Sodium Chloride 50 ML IV (09:25)
[2020-11-22] MEDS: Lactated Ringers 1,000 ML 100 ML IVCONT ×2 (10:09→20:07)
--- NOTE | 2020-11-22 13:23 | MHC.CM.PN ---
CM MET WITH PT WHO REPORTS HE CURRENTLY LIVES ALONE HE AND HIS RECENTLY . HE REPORTS HE IS INDEPENDENT, HAS NO DME AND NO SERVICES. PT REPORTS HIS PCP IS KIMBERLY PARHAM. HE STATES HE DOES NOT HAVE A HCP BUT WOULD LIKE A BLANK DOCUMENT TO DISCUSS WITH HIS . CURRENT DC PLAN IS HOME WITH NO SERVICES PT WILL DRIVE HIMSELF AT DC
--- NOTE | 2020-11-22 14:15 | P.EN_ITS ---
Event Note Date of Service: 11/22/20 Event Note: gpc 2/2 blood cultures, recent lumbar injections concerning for so urce of infection. start vanc, check echo, repeat cultures, MRI L spine.
--- NOTE | 2020-11-22 14:15 | PM.EVENT ---
Event Note Date of Service: 11/22/20 Event Note: gpc 2/2 blood cultures, recent lumbar injections concerning for source of infection. start vanc, check echo, repeat cultures, MRI L spine.
[2020-11-22] MEDS: vancomycin HCL 1,250 MG in 0.9 % Sodium Chloride 250 ML 166.67 MG IV (15:27)
[2020-11-22] MEDS: Atorvastatin Calcium 20 MG TABLET PO (20:11)
[2020-11-23] VITALS (13 sets, daily range): BP systolic 136–172; BP diastolic 68–87; PULSE 101–112; RESP 18–32; TEMP 36.4–37.7; O2SAT 88–96
[2020-11-23] MEDS: Melatonin 3 MG TABLET 6 MG PO (01:46)
[2020-11-23] MEDS: HYDROmorphone HCl 0.5 MG/0.5 ML SYRINGE IVPUSH ×2 (01:47→07:59)
[2020-11-23] MEDS: Lactated Ringers 1,000 ML 100 ML IVCONT (05:46)
[2020-11-23] MEDS: Heparin Sodium,Porcine 5,000 UNIT/ML VIAL 5000 UNIT SUBCUT ×3 (05:46→20:22)
[2020-11-23] MEDS: LORazepam 2 MG/ML VIAL 0.5 MG IVPUSH (05:47)
[2020-11-23 05:58] LABS: Hematocrit 35.2 % (42-52); Hemoglobin 12.3 g/dl (14.0-18.0); Mean Corpuscular HGB Conc 34.9 g/dl (31.0-36.0); Mean Corpuscular Hemoglobin 32.1 pg (27.0-33.0); Mean Corpuscular Volume 91.9 fL (80-98); Mean Platelet Volume 9.9 fL (9.4-12.4); Platelet Count 160 X10*3/uL (160-400); Red Blood Count 3.83 X10*6/uL (4.60-5.80); Red Cell Distribution Width 12.1 % (11.0-16.0); White Blood Count 19.9 X10*3/uL (4.8-10.8)
[2020-11-23 06:10] LABS: Anion Gap 14 (12-20); Blood Urea Nitrogen 43 mg/dL (9-16); Carbon Dioxide 24 mmol/L (22-29); Chloride 100 mmol/L (96-108); Creatinine Clr Calc Pharmacy 69.5; Estimated Glomerular Filt Rate > 60; Glucose Fasting 124 mg/dL (60-99); Potassium 3.1 mmol/L (3.3-5.1); Sodium 135 mmol/L (135-145)
[2020-11-23] MEDS: buPROPion HCl XL 150 MG TAB.ER.24H PO (08:23)
[2020-11-23] MEDS: amLODIPine Besylate 5 MG TABLET PO (08:23)
[2020-11-23] MEDS: Potassium Chloride ER 20 MEQ TAB.ER.PRT 40 MEQ PO (08:23)
[2020-11-23] MEDS: 0.9 % Sodium Chloride Flush 3 ML SYRINGE IVFLUSH ×3 (08:24→20:23)
--- NOTE | 2020-11-23 08:49 | PC.NURSE ---
Addendum entered by Lois Maradiaga RN 11/23/20 18:42: STILL NO BM BY THE END OF THIS SHIFT. WARM PRUNE JUICE GIVEN. SITTER REMAINS BEDSIDE FOR SAFETY. Addendum entered by Lois Maradiaga RN 11/23/20 16:33: MINERAL OIL ENEMA ADMINISTERED WITHOUT SUCCESS. MD NOTIFIED. ORDERED AND ADMINISTERED MIRALAX X 1 AND DULCOLAX SUPPOSITORY X 1. RESULTING PENDING. SITTER BEDSIDE FOR SAFETY. PT CONTINUES TO BE RESTLESS AND IMPULSIVE TRYING TO JUMP OUT OF BED. 2 MAX ASSIST OOB TO COMMODE. PT UNABLE TO STAND STRAIGHT UP DUE TO PAIN. WILL CONTINUE TO MONITOR. Original Note: HAIR ASSISTANT CALLED AT 0800 INCREASED RR 30-36, SOB, SHAKING, DIAPHORETIC, BOUNDING PULSE TO RIGHT JUGULAR, FINE CRACKLES TO BILATERAL BASES. C/O PAIN TO NECK, BILATERAL SIDES OF BACK DILAUDID ADMINISTER, EFFECTS PENDING. INITAL VITALS AT START OF HAIR ASSISTANT: HR 111, BP 153/86, 02 92% ON ROOM AIR, RECTAL TEMP 99.9. LR STOPPED PER . 08 02 DROPPED TO 88%, 2L NC APPLIED PER . 0817 REPEAT VITALS: HR 107, BP 138/85, 02 91% 2L NC. CXR ORDERED AND PERFORMED. CTA ORDERED, CONSENT SIGNED, AWAITING A TIME AND TRANSPORT. 0849 REPEAT VITALS: HR 112, BP 156/85, 02 94% 2L NC. NO CHANGE IN PAIN AT THIS TIME.
[2020-11-23] MEDS: iohexoL 350 MG/ML 100 ML INFUS..BTL IV (09:54)
[2020-11-23] MEDS: Mineral OiL enema 133 ML ENEMA PR (11:24)
--- NOTE | 2020-11-23 12:16 | HO.PM.IMPN ---
Subjective Subjective Date of Service: 11/23/20 Interval History: severe neck pain, no sob, had rapid response this AM for rapid shallow breathing and hypoxia with severe pain, now improved somewhat Cardiovascular Cardiovascular: Reports no additional cardiovascular complaints Respiratory Respiratory: Reports no additional respiratory complaints Physical Exam Vital Signs: Vital Signs: Last Vital Signs Temp 97.9 F 11/23/20 10:56 Pulse 111 H 11/23/20 10:56 Resp 24 H 11/23/20 10:56 BP 153/85 H 11/23/20 10:56 Pulse Ox 94 11/23/20 10:56 Body Mass Index 31.4 General: AO X 3, in severe pain, rapid shallow breathing Resp: CTA bilateral CVS: S1,S2,Rapid regular GI: soft, non tender, non distended Neuro: motor grossly intact, limited by pain, Psych: appropriate affect Objective Data Active Medications Acetaminophen (Acetaminophen 325 Mg Tablet) 650 mg PO Q6H PRN PRN Reason: Pain, Mild (Pain Scale 1-3) Amlodipine Besylate (Amlodipine Besylate 5 Mg Tablet) 5 mg PO DAILY [facility]; Protocol Last Admin: 11/23/20 08:23 Dose: 5 mg Documented by: YOGI Atorvastatin Calcium (Atorvastatin Calcium 20 Mg Tablet) 20 mg PO BEDTIME [facility] Last Admin: 11/22/20 20:11 Dose: 20 mg Documented by: SAVANNAH Bupropion HCl (Bupropion Hcl Xl 150 Mg Tab.Er.24h) 150 mg PO DAILY [facility] Last Admin: 11/23/20 08:23 Dose: 150 mg Documented by: YOGI Heparin Sodium (Porcine) (Heparin Sodium,Porcine 5,000 Unit/Ml Vial) 5,000 unit SUBCUT Q8H [facility] Last Admin: 11/23/20 05:46 Dose: 5,000 unit Documented by: SAVANNAH Hydromorphone HCl (Hydromorphone Hcl 1 Mg/Ml Syringe) 0.5 mg IVPUSH Q4H PRN; Protocol PRN Reason: Breakthrough Pain Vancomycin HCl 1,500 mg/ (Sodium Chloride) 500 mls @ 333.333 mls/hr IV Q24H [facility] Lorazepam (Lorazepam 2 Mg/Ml Vial) 0.5 mg IVPUSH Q4H PRN PRN Reason: back pain/spasm Last Admin: 11/23/20 05:47 Dose: 0.5 mg Documented by: SAVANNAH Melatonin (Melatonin 3 Mg Tablet) 6 mg PO BEDTIME PRN PRN Reason: Insomnia Last Admin: 11/23/20 01:46 Dose: 6 mg Documented by: SAVANNAH Mineral Oil (Mineral Oil Enema 133 Ml Enema) 133 ml NE ONCE PRN PRN Reason: constipation Last Admin: 11/23/20 11:24 Dose: 133 ml Documented by: YOGI Pharmacy Consult (Consult Rx Vancomycin Dosing) 1 each MISCELLANE DAILY PRN PRN Reason: Consult order Senna (Sennosides 8.6 Mg Tablet) 17.2 mg PO BEDTIME PRN PRN Reason: Constipation Sodium Chloride (0.9 % Sodium Chloride Flush 3 Ml Syringe) 3 ml IVFLUSH QSHIFT [facility] Last Admin: 11/23/20 08:24 Dose: 3 ml Documented by: YOGI Labs CBC & Chem 7: 11/23/20 05:36 11/23/20 05:36 Labs: Laboratory Results - last 24 hr 11/23/20 11/23/20 05:36 05:36 MCV 91.9 MCH 32.1 MCHC 34.9 RDW 12.1 Plt Count 160 MPV 9.9 Absolute Nucleated RBC 0.000 Nucleated RBC % (auto) 0.0 Anion Gap 14 Estim Creat Clear Calc 69.5 Estimated GFR > 60 Fasting Glucose 124 H Calcium 9.0 Microbiology Microbiology Results: Microbiology 11/22/20 01:48 Blood Culture - Preliminary Blood - Venous Staphylococcus species 11/22/20 00:40 Blood Culture - Preliminary Blood - Venous Staphylococcus species Assessment and Plan (1) Sepsis: Status: Acute (2) DIEGO (acute kidney injury): Status: Acute (3) Staphylococcus aureus bacteremia: Status: Acute (4) Acute respiratory failure with hypoxia: Status: Acute (5) Atelectasis: Status: Acute (6) Constipation: Status: Acute (7) HTN (hypertension): Status: Acute (8) Neck pain: Status: Acute (9) Chronic back pain: Status: Acute Assessment and Plan: 70M presented with severe back and neck pain sepsis present on admission due to staph (likely aureus) bacteremia in setting of recent Lspine injection. not severe sepsis (DIEGO from NSAIDs) continue vancomycin follow up cultures, echo, ID, MRI lumbar spine pain control acute hypoxic respiratory failure CTA no PE, has new atelectasis, likely from rapid shallow breathing from pain and constipation constipation enema DIEGO due to excess NSAID use, hold nsaids, lisinopril, resolved with IVF HTN amlodipine Quality Stroke Does the patient have a stroke diagnosis?: No VTE Prior VTE?: No VTE Risk Level:: Medical - moderate - high VTE Device Contraindication: Treatment Not Indicated VTE Drug Contraindication: N/A - Med Ordered
[2020-11-23] MEDS: HYDROmorphone HCl 1 MG/ML SYRINGE 0.5 MG IVPUSH ×2 (13:21→20:23)
--- NOTE | 2020-11-23 13:48 | P.CNID_ITS ---
History of Present Illness Data of Consult Service Date: 11/23/20 Requesting physician: Eric Spencer Primary Care Provider: Unknown Physician HPI Reason for consult: encephalopathy,neck pain He presents with pain neck,8/10 for a day He is confused and had rapid response this am He has diaphoresis He had lumbar injection weeks ago Review of Systems Review of Systems: Yes all other systems are reviewed and are negative PMFSH Past Medical History Medical History (Updated 12/06/20 @ 11:57 by Ronen King MD) Chronic back pain HTN (hypertension) Psoas abscess Surgical History Surgical History History of selective injection of anesthetic agent around lumbar nerve root Social History Social History Household Members: None Housing: Other Housing Other:: room at a boarding house Alcohol intake: current Alcohol intake frequency: holidays/special occasions only Patient Tobacco Use Status: Never used Tobacco Current occupational status: retired Meds Allergies Allergy/AdvReac Type Severity Reaction Status Date / Time oxycodone AdvReac Itching Verified 11/22/20 00:30 Active Medications: Current Medications Generic Name Dose Route Start Last Admin Trade Name Freq PRN Reason Stop Dose Admin Acetaminophen 650 mg 11/22/20 03:35 Acetaminophen 325 Mg Tablet PO Q6H PRN Pain, Mild (Pain Scale 1-3) Amlodipine Besylate 5 mg 11/22/20 09:00 11/23/20 08:23 Amlodipine Besylate 5 Mg Tablet PO 5 mg DAILY [facility] Administration Protocol Atorvastatin Calcium 20 mg 11/22/20 21:00 11/22/20 20:11 Atorvastatin Calcium 20 Mg Tablet PO 20 mg BEDTIME [facility] Administration Bupropion HCl 150 mg 11/22/20 09:00 11/23/20 08:23 Bupropion Hcl Xl 150 Mg Tab.Er.24h PO 150 mg DAILY [facility] Administration Heparin Sodium (Porcine) 5,000 unit 11/22/20 05:00 11/23/20 13:29 Heparin Sodium,Porcine 5,000 Unit/Ml Vial SUBCUT 5,000 unit Q8H [facility] Administration Hydromorphone HCl 0.5 mg 11/23/20 12:15 11/23/20 13:21 Hydromorphone Hcl 1 Mg/Ml Syringe IVPUSH 0.5 mg Q4H PRN Administration Breakthrough Pain Protocol Vancomycin HCl 1,500 mg/ 500 mls @ 333.333 mls/hr 11/23/20 15:00 Sodium Chloride IV Q24H [facility] Lorazepam 0.5 mg 11/22/20 09:43 11/23/20 05:47 Lorazepam 2 Mg/Ml Vial IVPUSH 0.5 mg Q4H PRN Administration back pain/spasm Melatonin 6 mg 11/22/20 03:35 11/23/20 01:46 Melatonin 3 Mg Tablet PO 6 mg BEDTIME PRN Administration Insomnia Mineral Oil 133 ml 11/23/20 08:23 11/23/20 11:24 Mineral Oil Enema 133 Ml Enema [place] 133 ml ONCE PRN Administration constipation Pharmacy Consult 1 each 11/22/20 14:12 Consult Rx Vancomycin Dosing MISCELLANE DAILY PRN Consult order Senna 17.2 mg 11/22/20 03:35 Sennosides 8.6 Mg Tablet PO BEDTIME PRN Constipation Sodium Chloride 3 ml 11/22/20 08:00 11/23/20 13:22 0.9 % Sodium Chloride Flush 3 Ml Syringe IVFLUSH 3 ml QSHIFT [facility] Administration Home Medications Medication Instructions Recorded Confirmed Last Taken Type atorvastatin 20 mg tablet 1 tab PO BEDTIME 11/22/20 11/22/20 11/21/20 History bupropion HCl 150 mg 24 hr tablet, 1 tab PO QAM 11/22/20 11/22/20 11/21/20 History extended release gabapentin 300 mg capsule mg PO 11/22/20 11/21/20 History hydrochlorothiazide 25 mg tablet 1 tab PO DAILY 11/22/20 11/22/20 11/21/20 History lisinopril 10 mg tablet 1 tab PO DAILY 11/22/20 11/22/20 11/21/20 History Physical Exam Vital Signs: Vital Signs: Last Vital Signs Temp 97.9 F 11/23/20 10:56 Pulse 111 H 11/23/20 10:56 Resp 20 11/23/20 13:21 BP 153/85 H 11/23/20 10:56 Pulse Ox 94 11/23/20 10:56 Body Mass Index 31.4 Const: General: cooperative HENMT: Head: Yes normal to inspection Mouth: Normal oral and palatal mucosa present Eyes: General: appearance normal, both eyes and all related structures Resp: Effort & Inspection: normal respiratory effort Cardio: Rate: regular rate Rhythm: regular rhythm GI: Palpation (GI): Soft to palpation and nontender Back/Spine/Pelvis: Cervical Spine: cervical muscular tenderness Th oracic/Lumbar Spine: thoracic and lumbar spine normal to inspection Skin: General skin exam: dry skin Neuro: Other: weakness throughout,nonfocal except confusion and cervical neck pain,slt decreased ROM Results Labs CBC & Chem 7: 12/07/20 10:06 12/07/20 10:06 Labs: Short CBC 11/23/20 Range/Units 05:36 WBC 19.9 H (4.8-10.8) X10*3/uL Hgb 12.3 L (14.0-18.0) g/dl Hct 35.2 L (42-52) % Plt Count 160 (160-400) X10*3/uL BMP 11/23/20 05:36 Sodium 135 Potassium 3.1 L Chloride 100 Carbon Dioxide 24 BUN 43 H Creatinine 1.00 Calcium 9.0 Microbiology Microbiology Results: Microbiology 11/22/20 01:48 Blood - Venous Blood Culture - Preliminary Staphylococcus species 11/22/20 00:40 Blood - Venous Blood Culture - Preliminary Staphylococcus species Assessment and Plan (1) Neck pain: Status: Acute (2) Staphylococcus aureus bacteremia: Status: Acute This is possibly infection from skin ,staph aureus He has neck discomfort Suggest Vancomycin MRI Cspine,LS spine and T spine evaluate abscess Echo (3) Sepsis: Status: Acute
[2020-11-23] MEDS: polyethylene glycoL 3350 17 GM POWD.PACK PO (15:27)
[2020-11-23] MEDS: bisacodyL 10 MG SUPP.RECT PR (15:27)
[2020-11-23] MEDS: vancomycin HCL 1,500 MG in 0.9 % Sodium Chloride 500 ML 333.33 MG IV (15:27)
[2020-11-23] MEDS: Atorvastatin Calcium 20 MG TABLET PO (20:23)
[2020-11-24] VITALS (12 sets, daily range): BP systolic 144–180; BP diastolic 60–98; PULSE 91–105; RESP 18–20; TEMP 36.4–37.7; O2SAT 93–96
[2020-11-24 01:37] LABS: Potassium 2.7 mmol/L (3.3-5.1)
[2020-11-24] MEDS: HYDROmorphone HCl 1 MG/ML SYRINGE 0.5 MG IVPUSH ×3 (02:05→20:05)
[2020-11-24] MEDS: Potassium Chloride Packet 20 MEQ PACKET 40 MEQ PO ×3 (02:20→08:36)
[2020-11-24 05:59] LABS: Hematocrit 33.4 % (42-52); Hemoglobin 12.1 g/dl (14.0-18.0); Mean Corpuscular HGB Conc 36.2 g/dl (31.0-36.0); Mean Platelet Volume 9.8 fL (9.4-12.4); Platelet Count 175 X10*3/uL (160-400); Red Blood Count 3.67 X10*6/uL (4.60-5.80); Red Cell Distribution Width 12.1 % (11.0-16.0); White Blood Count 19.5 X10*3/uL (4.8-10.8)
[2020-11-24 06:08] LABS: Anion Gap 12 (12-20); Blood Urea Nitrogen 42 mg/dL (9-16); Carbon Dioxide 25 mmol/L (22-29); Chloride 105 mmol/L (96-108); Creatinine Clr Calc Pharmacy 86.9; Estimated Glomerular Filt Rate > 60; Glucose Fasting 122 mg/dL (60-99); Potassium 3.1 mmol/L (3.3-5.1); Sodium 139 mmol/L (135-145)
[2020-11-24] MEDS: Heparin Sodium,Porcine 5,000 UNIT/ML VIAL 5000 UNIT SUBCUT ×3 (06:33→20:04)
[2020-11-24] MEDS: amLODIPine Besylate 5 MG TABLET PO (08:35)
[2020-11-24] MEDS: buPROPion HCl XL 150 MG TAB.ER.24H PO (08:35)
[2020-11-24] MEDS: 0.9 % Sodium Chloride Flush 3 ML SYRINGE IVFLUSH ×3 (08:35→20:04)
--- NOTE | 2020-11-24 11:00 | CA_ITS ---
Transthoracic Echocardiogram Patient (Last, First, Middle): Navin Alejandro, Gender: Male Date of : 1950 Age: 70 Procedure Date: 11/25/2020 Procedure Type: Transthoracic Echocardiogram [place] [facility] [place] Height: 167.64 cm Weight: 88. kg BSA: 1.97 m2 Heart Rate: bpm BP: 163 / 91 mmHg Business Leader: Referring MD: Eric Spencer MD Symptoms: gram positive bacteremia Study Quality: Good ECG Rhythm: Sinus/PACs Conclusions: - The left ventricular systolic function is normal. The visually estimated ejection fraction is between 60-65%. - There is mild calcification of the aortic valve. - There is mild mitral annular calcification. - There is mild dilatation of the ascending aorta measuring 4.00 cm. - No obvious valvular vegetation noted. Findings Left Ventricle Normal left ventricular cavity size. There is normal left ventricular wall thickness. The left ventricular systolic function is normal. The visually estimated ejection fraction is between 60-65%. There is no evidence of regional wall motion abnormalities. Diastolic function is normal for age. Right Ventricle Normal right ventricular cavity size and systolic function. Atria The left atrium is mildly dilated. The right atrium is normal in size. Aortic Valve There is a normal trileaflet aortic valve. There is mild calcification of the aortic valve. There is no aortic valve stenosis. There is no aortic valve regurgitation. Mitral Valve There is mild mitral annular calcification. There is trace mitral valve regurgitation. There is no mitral valve stenosis. Pulmonic Valve The pulmonic valve was not well visualized. Tricuspid Valve Normal tricuspid valve structure. There is trace tricuspid valve regurgitation. The pulmonary artery systolic pressure is normal. Great Vessels There is mild dilatation of the ascending aorta measuring 4.00 cm. Venous The inferior vena cava is normal in size and collapses greater than 50% with inspiration. Pericardium/Pleural There is no evidence of pericardial effusion. Prior Study Comparison No prior study available for comparison. Measurements 2D Linear Measurements IVSd: 0.96 0.6-0.9/0.6-1.0 cm LVIDd: 4.71 3.9-5.3/4.2-5.9 cm LVIDd Index: 2.39 2.4-3.2/2.2-3.1 cm/m2 LVIDs: 3.24 2.0-3.6 cm LVPWd: 1.09 0.7-1.1 cm Ao Root: 3.80 2.1-3.5 cm LA Diam: 4.00 2.7-3.8/3.0-4.0 cm LAIDs Index: 2.03 1.5-2.3 cm/m2 LV Mass: 212.32 67-162/88-224 g LV Mass Index: 107.78 43-95/49-115 g/m2 LVOT Diam: 2.20 3.0+(-)1.3 cm 2D Systolic Function EF 4C: 71.00 >55% EF 2C: 47.90 >55% EF BiP: 61.70 >55% Mitral Valve MV Pk E: 0.86 MV PK A: 0.89 MV Decel Time: 278.00 E/A: 1.00 E'Lateral: 11.20 E'Medial: 8.70 E/E' Med: 9.90 E/E' Lat: 7.70 PHT: 82.00 MVA PHT: 2.68 Decel [place]: 3.08 Aortic Valve AoV Pk Alexander: 1.99 AoV Mn Alexander: 1.07 AoV VTI: 0.37 AoV Pk Grad: 16.00 Aov Mn Grad: 6.00 KATTY Cont.VTI: 2.63 LVOT LVOT Pk Alexander: 1.28 LVOT Mn Alexander: 0.87 LVOT VTI: 0.25 LVOT Pk Grad: 7.00 LVOT Mn Grad: 4.00 LVOT Diam: 2.20 LVOT Area: 3.80 Diastolic Function MV Pk E: 0.86 MV Pk A: 0.89 E/A: 1.00 E'Medial: 8.70 E/E' Med: 9.90 E' Laterial: 11.20 E/E' Lat: 7.70 Right Ventricle TAPSE (mm): 2.31 TVS' Alexander: 21.00 Tricuspid Valve TR Pk Alexander: 2.64 TR Pk Grad: 28.00 Great Vessels Aorta Ao Root-2D: 3.80 2.0-3.7 cm Ao Asc: 4.00 2.1-3.4 cm Pulmonary Valve PV Pk Alexander: 0.96 Peak PV Grad: 4.00 Updated in Other Vendor System with Status of Final Tres Cannon MD electronically signed on 11/25/2020 5:08:23 PM with status of Final
[2020-11-24] MEDS: LORazepam 2 MG/ML VIAL 0.5 MG IVPUSH (11:05)
--- NOTE | 2020-11-24 14:32 | HO.PM.IMPN ---
Subjective Subjective Date of Service: 11/24/20 Interval History: Patient complaining of neck pain, unable to tolerate MRI of C-spine thoracic and lumbar spine, has chronic back pain, received steroid shot to lower back 2 weeks ago. Patient able to answer all questions appropriately, had no bowel movement in last few days. Review of Systems General no headache, no dizziness, no fever chills. CVS no chest pain, no palpitation. Respiratory no cough, no sob. Gastrointestinal no nausea no vomiting, no abdominal pain, constipation Physical Exam Vital Signs: Vital Signs: Last Vital Signs Temp 98.5 F 11/24/20 11:52 Pulse 97 11/24/20 11:52 Resp 19 11/24/20 11:52 BP 180/83 H 11/24/20 11:52 Pulse Ox 94 11/24/20 11:52 Body Mass Index 31.4 General mild acute distress due to pain Neck no JVD, moving neck CVS regular rate rhythm, Respiratory lungs clear to auscultation, no respiratory distress, no wheeze, no rhonchi. Gastrointestinal abdomen soft, nontender, bowel sounds audible, no guarding , no rigidity. Extremities no edema. Neuro speech clear, moving all 4 extremities Skin no rash, right elbow dry scab, no fluctuation Objective Data Active Medications Acetaminophen (Acetaminophen 325 Mg Tablet) 650 mg PO Q6H PRN PRN Reason: Pain, Mild (Pain Scale 1-3) Amlodipine Besylate (Amlodipine Besylate 5 Mg Tablet) 5 mg PO DAILY [facility]; Protocol Last Admin: 11/24/20 08:35 Dose: 5 mg Documented by: TITA Atorvastatin Calcium (Atorvastatin Calcium 20 Mg Tablet) 20 mg PO BEDTIME [facility] Last Admin: 11/23/20 20:23 Dose: 20 mg Documented by: YUNI Bupropion HCl (Bupropion Hcl Xl 150 Mg Tab.Er.24h) 150 mg PO DAILY [facility] Last Admin: 11/24/20 08:35 Dose: 150 mg Documented by: TITA Heparin Sodium (Porcine) (Heparin Sodium,Porcine 5,000 Unit/Ml Vial) 5,000 unit SUBCUT Q8H [facility] Last Admin: 11/24/20 06:33 Dose: 5,000 unit Documented by: YUNI Hydromorphone HCl (Hydromorphone Hcl 1 Mg/Ml Syringe) 0.5 mg IVPUSH Q4H PRN; Protocol PRN Reason: Breakthrough Pain Last Admin: 11/24/20 08:39 Dose: 0.5 mg Documented by: TITA Vancomycin HCl 1,500 mg/ (Sodium Chloride) 500 mls @ 333.333 mls/hr IV Q24H [facility] Last Infusion: 11/23/20 16:59 Dose: 0 mls/hr Documented by: YOGI Lorazepam (Lorazepam 2 Mg/Ml Vial) 0.5 mg IVPUSH Q4H PRN PRN Reason: back pain/spasm Last Admin: 11/24/20 11:05 Dose: 0.5 mg Documented by: TITA Melatonin (Melatonin 3 Mg Tablet) 6 mg PO BEDTIME PRN PRN Reason: Insomnia Last Admin: 11/23/20 01:46 Dose: 6 mg Documented by: SAVANNAH Metoprolol Tartrate (Metoprolol Tartrate 25 Mg Tablet) 25 mg PO BID [facility]; Protocol Mineral Oil (Mineral Oil Enema 133 Ml Enema) 133 ml CA ONCE PRN PRN Reason: constipation Last Admin: 11/23/20 11:24 Dose: 133 ml Documented by: YOGI Pharmacy Consult (Consult Rx Vancomycin Dosing) 1 each MISCELLANE DAILY PRN PRN Reason: Consult order Polyethylene Glycol (Polyethylene Glycol 3350 17 Gm Powd.Pack) 17 gm PO DAILY [facility] Senna (Sennosides 8.6 Mg Tablet) 17.2 mg PO BEDTIME PRN PRN Reason: Constipation Sodium Chloride (0.9 % Sodium Chloride Flush 3 Ml Syringe) 3 ml IVFLUSH QSHIFT [facility] Last Admin: 11/24/20 08:35 Dose: 3 ml Documented by: TITA Labs CBC & Chem 7: 11/24/20 05:35 11/24/20 05:35 Labs: Laboratory Results - last 24 hr 11/24/20 11/24/20 11/24/20 01:06 05:35 05:35 MCV 91.0 MCH 33.0 MCHC 36.2 H RDW 12.1 Plt Count 175 MPV 9.8 Absolute Nucleated RBC 0.000 Nucleated RBC % (auto) 0.0 Anion Gap 12 Estim Creat Clear Calc 86.9 Estimated GFR > 60 Fasting Glucose 122 H Calcium 9.0 Magnesium 2.0 Microbiology Microbiology Results: Microbiology 11/23/20 05:36 Blood Culture - Preliminary Blood - Venous Staphylococcus species 11/23/20 05:36 Blood Culture - Preliminary Blood - Venous Prelim: GPC Gram Stain only 11/22/20 01:48 Blood Culture - Final Blood - Venous Staphylococcus aureus 11/22/20 00:40 Blood Culture - Final Blood - Venous Staphylococcus aureus Assessment and Plan (1) Chronic back pain: Status: Acute (2) Neck pain: Status: Acute (3) HTN (hypertension): Status: Acute (4) Staphylococcus aureus bacteremia: Status: Acute (5) Constipation: Status: Acute (6) Atelectasis: Status: Acute (7) DIEGO (acute kidney injury): Status: Acute (8) Sepsis: Status: Acute Assessment and Plan: 70M presented with severe back and neck pain sepsis present on admission due to staph aureus bacteremia in setting of recent L spine injection. not severe sepsis (DIEGO from NSAIDs) WBC trending down, rule recurrent fevers, CTA chest, CT chest ,abdominal and pelvic CAT scan and cervical spine CT showed no nauseous abnormality. continue iv vancomycin, Vanco trough pending, echo obtained report pending Repeat blood cultures 11/23 positive for gram-positive cocci , patient unable to tolerate MRI lumbar, C-spine and thoracic spine Will discuss antibiotic and further testing with ID Continue pain control with IV Dilaudid patient has allergy to oxycodone. acute hypoxic respiratory failure CTA no PE, has new atelectasis, likely from rapid shallow breathing from pain and constipation, encourage incentive spirometry constipation Will add MiraLax, give lactulose today add stool softener,prn enema DIEGO due to excess NSAID use, creatinine trending down, continue to hold nsaids, lisinopril, creatinine normalized HTN BP elevated since hydrochlorothiazide and lisinopril on hold, continue amlodipine add beta-christiana Hypokalemia likely due to hydrochlorothiazide will replace and follow BMP. DVT prophylaxis with subcu heparin Quality Stroke Does the patient have a stroke diagnosis?: No VTE Prior VTE?: No VTE Risk Level:: Medical - moderate - high VTE Device Contraindication: Treatment Not Indicated VTE Drug Contraindication: N/A - Med Ordered
--- NOTE | 2020-11-24 14:35 | PM.EVENT ---
Event Note Date of Service: 11/24/20 Event Note: PRSA Did not tolerate MRI Would switch to Nafcillin from Vancomycin Recheck blood cultures two days
[2020-11-24] MEDS: Lactulose 20 GM/30 ML SOLUTION 15 GM PO (14:41)
[2020-11-24] MEDS: Potassium Chloride ER 20 MEQ TAB.ER.PRT 40 MEQ PO (14:41)
[2020-11-24] MEDS: Metoprolol Tartrate 25 MG TABLET PO ×2 (14:43→20:04)
[2020-11-24] MEDS: polyethylene glycoL 3350 17 GM POWD.PACK PO (14:43)
[2020-11-24 15:03] LABS: Vancomycin Trough 4.6 mcg/mL (10.0-20.0)
[2020-11-24] MEDS: Nafcillin Sodium 2 GM in 0.9 % Sodium Chloride 100 ML IV ×2 (16:10→20:04)
[2020-11-24] MEDS: Atorvastatin Calcium 20 MG TABLET PO (20:04)
[2020-11-25] VITALS (8 sets, daily range): BP systolic 165–180; BP diastolic 81–94; PULSE 79–99; RESP 18–20; TEMP 36.9–37.2; O2SAT 93–98
[2020-11-25] MEDS: Acetaminophen 325 MG TABLET 650 MG PO ×2 (00:53→18:41)
[2020-11-25] MEDS: Nafcillin Sodium 2 GM in 0.9 % Sodium Chloride 100 ML IV ×3 (00:54→09:17)
[2020-11-25] MEDS: Heparin Sodium,Porcine 5,000 UNIT/ML VIAL 5000 UNIT SUBCUT ×3 (04:56→20:23)
[2020-11-25] MEDS: LORazepam 2 MG/ML VIAL 0.5 MG IVPUSH (04:56)
[2020-11-25] MEDS: buPROPion HCl XL 150 MG TAB.ER.24H PO (09:18)
[2020-11-25] MEDS: polyethylene glycoL 3350 17 GM POWD.PACK PO (09:18)
[2020-11-25] MEDS: amLODIPine Besylate 5 MG TABLET PO (09:19)
[2020-11-25] MEDS: 0.9 % Sodium Chloride Flush 3 ML SYRINGE IVFLUSH ×2 (09:20→18:01)
[2020-11-25] MEDS: Metoprolol Tartrate 50 MG TABLET PO ×2 (09:57→20:23)
[2020-11-25] MEDS: Ketorolac Tromethamine 15 MG/ML VIAL 30 MG IVPUSH (10:48)
--- NOTE | 2020-11-25 10:49 | PC.NURSE ---
Skin/wound assessment completed today. Patient has pressure ulcer to left elbow with scant slough. Woundres' gel applied to wound covered with non woven gauze and roll gauze. Patient also has rash throughout body and in groin, possible rash from reaction to Dilaudid. Nystatin was ordered for rash. no other skin issues noted at thins time.
--- NOTE | 2020-11-25 11:12 | MHC.CM.PN ---
Per ROUNDS discussion, Patient is not yet medically cleared for dc (IV Ativan today, C/O Back Pain, IV Nafcillin). Home is the goal for dc and CM will follow for possible need to adjust the dc plan.
[2020-11-25] MEDS: DAPTOmycin 500 MG in 0.9 % Sodium Chloride 50 ML 98.99 MG IV (14:20)
--- NOTE | 2020-11-25 15:56 | P.PNIM_ITS ---
Subjective Subjective Date of Service: 11/26/20 Interval History: Persistent neck pain and lower back pain, no overnight fever chills, had a regular bowel movement, no nausea, no vomiting, noted to have rash mostly in the groin and back since last night. Review of Systems General no headache, no dizziness, no fever chills.? CVS no chest pain, no palpitation.? Respiratory no cough, no sob.? Gastrointestinal no nausea no vomiting, no abdominal pain, constipation resolved Physical Exam Vital Signs: Vital Signs: Last Vital Signs Temp 98.9 F 11/25/20 15:12 Pulse 79 11/25/20 15:12 Resp 19 11/25/20 15:12 BP 180/81 H 11/25/20 15:12 Pulse Ox 95 11/25/20 15:12 Body Mass Index 31.4 General mild acute distress due to pain? Neck no JVD, moving neck CVS? regular rate rhythm, Respiratory lungs clear to auscultation, no respiratory distress, no wheeze, no rhonchi. Gastrointestinal abdomen soft, nontender, bowel sounds audible, no guarding , no rigidity. Extremities no edema. Back examination reveals tenderness C4-C5, bilateral paravertebral muscle tenderness, no redness no fluctuation of spine. Neuro speech clear, moving all 4 extremities Skin bilateral groin rash, maculopapular rash trunk and upper back. Objective Data Active Medications Acetaminophen (Acetaminophen 325 Mg Tablet) 650 mg PO Q6H [facility] Last Admin: 11/25/20 13:56 Dose: Not Given Documented by: ALVARO Non-Admin Reason: Patient Refused Amlodipine Besylate (Amlodipine Besylate 5 Mg Tablet) 5 mg PO DAILY [facility]; Protocol Last Admin: 11/25/20 09:19 Dose: 5 mg Documented by: ALVARO Atorvastatin Calcium (Atorvastatin Calcium 20 Mg Tablet) 20 mg PO BEDTIME [facility] Last Admin: 11/24/20 20:04 Dose: 20 mg Documented by: YUNI Bupropion HCl (Bupropion Hcl Xl 150 Mg Tab.Er.24h) 150 mg PO DAILY [facility] Last Admin: 11/25/20 09:18 Dose: 150 mg Documented by: ALVARO Cyclobenzaprine HCl (Cyclobenzaprine Hcl 5 Mg Tablet) 5 mg PO TID [facility] Last Admin: 11/25/20 13:52 Dose: Not Given Documented by: ALVARO Non-Admin Reason: Patient Refused Heparin Sodium (Porcine) (Heparin Sodium,Porcine 5,000 Unit/Ml Vial) 5,000 unit SUBCUT Q8H [facility] Last Admin: 11/25/20 14:17 Dose: 5,000 unit Documented by: ALVARO Daptomycin 500 mg/ Sodium (Chloride) 60 mls @ 98.992 mls/hr IV Q48H [facility] Last Infusion: 11/25/20 15:10 Dose: 0 mls/hr Documented by: MENDOZA Ketorolac Tromethamine (Ketorolac Tromethamine 15 Mg/Ml Vial) 30 mg IVPUSH Q6H PRN PRN Reason: Pain, Severe (Pain Scale 7-10) Last Admin: 11/25/20 10:48 Dose: 30 mg Documented by: ALVARO Lorazepam (Lorazepam 2 Mg/Ml Vial) 0.5 mg IVPUSH Q4H PRN PRN Reason: back pain/spasm Last Admin: 11/25/20 04:56 Dose: 0.5 mg Documented by: YUNI Melatonin (Melatonin 3 Mg Tablet) 6 mg PO BEDTIME PRN PRN Reason: Insomnia Last Admin: 11/23/20 01:46 Dose: 6 mg Documented by: SAVANNAH Metoprolol Tartrate (Metoprolol Tartrate 50 Mg Tablet) 50 mg PO BID [facility]; Protocol Last Admin: 11/25/20 09:57 Dose: 50 mg Documented by: ALVARO Mineral Oil (Mineral Oil Enema 133 Ml Enema) 133 ml [place] ONCE PRN PRN Reason: constipation Last Admin: 11/23/20 11:24 Dose: 133 ml Documented by: YOGI Nystatin (Nystatin Powder 15 Gm Bottle) 1 appl TOPICAL BID [facility]; Protocol Last Admin: 11/25/20 13:53 Dose: Not Given Documented by: ALVARO Non-Admin Reason: Patient Refused Pharmacy Consult (Consult Rx Vancomycin Dosing) 1 each MISCELLANE DAILY PRN PRN Reason: Consult order Polyethylene Glycol (Polyethylene Glycol 3350 17 Gm Powd.Pack) 17 gm PO DAILY [facility] Last Admin: 11/25/20 09:18 Dose: 17 gm Documented by: ALVARO Senna (Sennosides 8.6 Mg Tablet) 17.2 mg PO BEDTIME PRN PRN Reason: Constipation Sodium Chloride (0.9 % Sodium Chloride Flush 3 Ml Syringe) 3 ml IVFLUSH QSHIFT [facility] Last Admin: 11/25/20 09:20 Dose: 3 ml Documented by: ALVARO Labs CBC & Chem 7: 11/26/20 05:26 11/26/20 05:26 Microbiology Microbiology Results: Microbiology 11/23/20 05:36 Blood Culture - Preliminary Blood - Venous Staphylococcus aureus 11/23/20 05:36 Blood Culture - Preliminary Blood - Venous Staphylococcus aureus Assessment and Plan (1) Chronic back pain: Status: Acute (2) Neck pain: Status: Acute (3) HTN (hypertension): Status: Acute (4) Atelectasis: Status: Acute (5) Staphylococcus aureus bacteremia: Status: Acute (6) DIEGO (acute kidney injury): Status: Acute (7) Sepsis: Status: Acute (8) Acute respiratory failure with hypoxia: Status: Acute Assessment and Plan: 70M presented with severe back and neck pain Sepsis present on admission due to staph aureus bacteremia in setting of recent L spine injection,not severe sepsis (DIEGO from NSAIDs) WBC trending down,no recurrent fevers, CTA chest, CT chest ,abdominal and pelvic CAT scan and cervical spine CT showed no abnormality. Patient started on nafcillin last night developed diffuse rash of trunk, no itching no fevers, will DC Nafcillin and start patient on IV daptomycin echo showed no vegetation Repeat blood cultures 11/23 positive for MSSA, patient did not tolerate MRI lumbar, C-spine and thoracic spine, reviewed old prior films with Radiologist Dr. [place] patient has significant cervical and lumbar degenerative disease Will do gallium scan to rule out occult infection Will DC IV Dilaudid, due to confusion hallucination, has allergy to oxycodone. Will place on Toradol and Flexeril for pain control. Behavioral issues With periods of agitation, confusion, likely related to narcotics will hold narcotics and discussed with family regarding baseline status. acute hypoxic respiratory failure CTA no PE, has new atelectasis, likely from rapid shallow breathing from pain and constipation, encourage incentive spirometry, will wean oxygen, patient not on home O2 constipation resolved Continue MiraLax, and stool softener DIEGO due to excess NSAID use, continue to hold nsaids, lisinopril, creatinine normalized HTN BP elevated since hydrochlorothiazide and lisinopril on hold, continue amlodipine and increase dose of metoprolol to 50 mg b.i.d. Hypokalemia likely due to hydrochlorothiazide will replace and follow BMP. DVT prophylaxis with subcu heparin Quality Stroke Does the patient have a stroke diagnosis?: No VTE Prior VTE?: No VTE Risk Level:: Medical - moderate - high VTE Device Contraindication: Treatment Not Indicated VTE Drug Contraindication: N/A - Med Ordered
[2020-11-25] MEDS: Cyclobenzaprine HCl 5 MG TABLET PO (20:23)
[2020-11-25] MEDS: Atorvastatin Calcium 20 MG TABLET PO (20:24)
[2020-11-26] VITALS (7 sets, daily range): BP systolic 132–158; BP diastolic 62–94; PULSE 63–91; RESP 18–20; TEMP 37–37.5; O2SAT 94–99
[2020-11-26] MEDS: Acetaminophen 325 MG TABLET 650 MG PO ×3 (00:32→18:34)
[2020-11-26] MEDS: 0.9 % Sodium Chloride Flush 3 ML SYRINGE IVFLUSH ×3 (00:32→18:33)
[2020-11-26] MEDS: Heparin Sodium,Porcine 5,000 UNIT/ML VIAL 5000 UNIT SUBCUT ×3 (05:05→20:17)
--- NOTE | 2020-11-26 05:42 | PC.NURSE ---
pt states he has no pain and refused the 0600tylenol. pt is voiding at this time in the urinal. no s/s of distress. sitter present in the room.
[2020-11-26 06:35] LABS: MANUAL DIFF FLAG NO
[2020-11-26 06:51] LABS: Basophils Percent Auto 0.3 % (0-2); Eosinophils Absolute Auto 0.1 X10*3/uL (0.0-0.4); Eosinophils Percent Auto 1.2 % (0-4); Hematocrit 32.1 % (42-52); Hemoglobin 11.1 g/dl (14.0-18.0); Imm Gran Abs Auto 0.12 X10*3/uL (0.00-0.03); Lymphocytes Absolute Auto 0.9 X10*3/uL (1.2-4.9); Lymphocytes Percent Auto 7.5 % (20-40); Mean Corpuscular HGB Conc 34.6 g/dl (31.0-36.0); Mean Corpuscular Hemoglobin 32.2 pg (27.0-33.0); Mean Platelet Volume 9.7 fL (9.4-12.4); Monocytes Absolute Auto 0.8 X10*3/uL (0.1-1.2); Monocytes Percent Auto 6.8 % (2-11); Neutrophils Absolute Auto 9.7 X10*3/uL (2.0-8.3); Neutrophils Percent Auto 83.2 % (45-73); Platelet Count 170 X10*3/uL (160-400); Red Blood Count 3.45 X10*6/uL (4.60-5.80); Red Cell Distribution Width 12.7 % (11.0-16.0); White Blood Count 11.7 X10*3/uL (4.8-10.8)
[2020-11-26 07:19] LABS: Anion Gap 10 (12-20); Blood Urea Nitrogen 44 mg/dL (9-16); Calcium 8.2 mg/dL (8.4-10.2); Carbon Dioxide 29 mmol/L (22-29); Chloride 107 mmol/L (96-108); Creatinine Clr Calc Pharmacy 78.1; Estimated Glomerular Filt Rate > 60; Glucose Random 83 mg/dL (60-115); Potassium 3.1 mmol/L (3.3-5.1); Sodium 143 mmol/L (135-145)
[2020-11-26] MEDS: polyethylene glycoL 3350 17 GM POWD.PACK PO (09:00)
[2020-11-26] MEDS: buPROPion HCl XL 150 MG TAB.ER.24H PO (09:01)
[2020-11-26] MEDS: Cyclobenzaprine HCl 5 MG TABLET PO ×3 (09:01→20:16)
[2020-11-26] MEDS: Metoprolol Tartrate 50 MG TABLET PO ×2 (09:01→20:16)
[2020-11-26] MEDS: amLODIPine Besylate 5 MG TABLET PO (09:02)
[2020-11-26] MEDS: Nystatin Powder 15 GM BOTTLE 1 APPL TOPICAL ×2 (09:04→20:18)
[2020-11-26] MEDS: LORazepam 2 MG/ML VIAL 0.5 MG IVPUSH (11:55)
--- NOTE | 2020-11-26 13:32 | P.PNIM_ITS ---
Subjective Subjective Date of Service: 11/26/20 Interval History: This morning patient noted to be agitated, yelling therefore security was called patient has a sitter at bedside, he admits that his pain is better, able to provide meaningful history has chronic lumbar pain for several years receiving steroid shots, also history of cervical disc disease, denies fever chills, no itching. Review of Systems General headache, no dizziness, no fever chills.? CVS no chest pain, no palpitation.? Respiratory no cough, no sob.? Gastrointestinal no nausea, no vomiting, no abdominal pain Physical Exam Vital Signs: Vital Signs: Last Vital Signs Temp 99.5 F 11/26/20 11:37 Pulse 81 11/26/20 11:37 Resp 20 11/26/20 11:37 BP 132/84 11/26/20 11:37 Pulse Ox 99 11/26/20 11:37 Body Mass Index 31.4 General no acute d istress? Neck no J VD, moving neck CV S? regular rate rh ythm, Respiratory lungs clear to aus cultation, no resp iratory distress, no wheeze, no rhon chi. Gastrointesti nal abdomen soft, nontender, bowel s ounds audible, no guarding , no rigi dity. Extremities no edema. Neuro sp eech clear, moving all 4 extremities Skin bilateral gr oin rash, maculopa pular rash trunk a nd upper back is f ading, no new area s of rash Back exa mination less tend erness C-spine oth erwise unchanged e xam Objective Data Active Medications Acetaminophen (Acetaminophen 325 Mg Tablet) 650 mg PO Q6H [facility] Last Admin: 11/26/20 11:55 Dose: 650 mg Documented by: AIMEE Amlodipine Besylate (Amlodipine Besylate 5 Mg Tablet) 5 mg PO DAILY [facility]; Protocol Last Admin: 11/26/20 09:02 Dose: 5 mg Documented by: ISAIAH Atorvastatin Calcium (Atorvastatin Calcium 20 Mg Tablet) 20 mg PO BEDTIME [facility] Last Admin: 11/25/20 20:24 Dose: 20 mg Documented by: MENDOZA Bupropion HCl (Bupropion Hcl Xl 150 Mg Tab.Er.24h) 150 mg PO DAILY [facility] Last Admin: 11/26/20 09:01 Dose: 150 mg Documented by: ISAIAH Cyclobenzaprine HCl (Cyclobenzaprine Hcl 5 Mg Tablet) 5 mg PO TID [facility] Last Admin: 11/26/20 09:01 Dose: 5 mg Documented by: ISAIAH Heparin Sodium (Porcine) (Heparin Sodium,Porcine 5,000 Unit/Ml Vial) 5,000 unit SUBCUT Q8H [facility] Last Admin: 11/26/20 11:54 Dose: 5,000 unit Documented by: AIMEE Daptomycin 500 mg/ Sodium (Chloride) 60 mls @ 98.992 mls/hr IV Q48H [facility] Last Infusion: 11/25/20 15:10 Dose: 0 mls/hr Documented by: MENDOZA Ketorolac Tromethamine (Ketorolac Tromethamine 15 Mg/Ml Vial) 30 mg IVPUSH Q6H PRN PRN Reason: Pain, Severe (Pain Scale 7-10) Last Admin: 11/25/20 10:48 Dose: 30 mg Documented by: ALVARO Lorazepam (Lorazepam 2 Mg/Ml Vial) 0.5 mg IVPUSH Q6H PRN PRN Reason: back pain/spasm Last Admin: 11/26/20 11:55 Dose: 0.5 mg Documented by: AIMEE Melatonin (Melatonin 3 Mg Tablet) 6 mg PO BEDTIME PRN PRN Reason: Insomnia Last Admin: 11/23/20 01:46 Dose: 6 mg Documented by: SAVANNAH Metoprolol Tartrate (Metoprolol Tartrate 50 Mg Tablet) 50 mg PO BID [facility]; Protocol Last Admin: 11/26/20 09:01 Dose: 50 mg Documented by: ISAIAH Mineral Oil (Mineral Oil Enema 133 Ml Enema) 133 ml [place] ONCE PRN PRN Reason: constipation Last Admin: 11/23/20 11:24 Dose: 133 ml Documented by: YOGI Nystatin (Nystatin Powder 15 Gm Bottle) 1 appl TOPICAL BID [facility]; Protocol Last Admin: 11/26/20 09:04 Dose: 1 appl Documented by: ISAIAH Pharmacy Consult (Consult Rx Vancomycin Dosing) 1 each MISCELLANE DAILY PRN PRN Reason: Consult order Polyethylene Glycol (Polyethylene Glycol 3350 17 Gm Powd.Pack) 17 gm PO DAILY [facility] Last Admin: 11/26/20 09:00 Dose: 17 gm Documented by: ISAIAH Senna (Sennosides 8.6 Mg Tablet) 17.2 mg PO BEDTIME PRN PRN Reason: Constipation Sodium Chloride (0.9 % Sodium Chloride Flush 3 Ml Syringe) 3 ml IVFLUSH QSHIFT [facility] Last Admin: 11/26/20 09:03 Dose: 3 ml Documented by: ISAIAH Labs CBC & Chem 7: 11/26/20 05:26 11/26/20 05:26 Labs: Laboratory Results - last 24 hr 11/26/20 11/26/20 05:26 05:26 MCV 93.0 MCH 32.2 MCHC 34.6 RDW 12.7 Plt Count 170 MPV 9.7 Immature Gran % (Auto) 1.0 H Neut % (Auto) 83.2 H Lymph % (Auto) 7.5 L [place] % (Auto) 6.8 Eos % (Auto) 1.2 Baso % (Auto) 0.3 Lymph # (Auto) 0.9 L [place] # (Auto) 0.8 Eos # (Auto) 0.1 Baso # (Auto) 0.0 Abs Immat Gran (auto) 0.12 H Absolute Neuts (auto) 9.7 H Absolute Nucleated RBC 0.000 Nucleated RBC % (auto) 0.0 Anion Gap 10 L Estim Creat Clear Calc 78.1 Estimated GFR > 60 Random Glucose 83 D Calcium 8.2 L D Microbiology Microbiology Results: Microbiology 11/23/20 05:36 Blood Culture - Final Blood - Venous Staphylococcus aureus 11/23/20 05:36 Blood Culture - Final Blood - Venous Staphylococcus aureus Assessment and Plan (1) Chronic back pain: Status: Acute (2) Neck pain: Status: Acute (3) HTN (hypertension): Status: Acute (4) Constipation: Status: Acute (5) Atelectasis: Status: Acute (6) Acute respiratory failure with hypoxia: Status: Acute (7) Staphylococcus aureus bacteremia: Status: Acute (8) DIEGO (acute kidney injury): Status: Acute (9) Sepsis: Status: Acute (10) Hypokalemia: Status: Acute Assessment and Plan: 70M presented with severe back and neck pain Sepsis present on admission due to staph aureus bacteremia in setting of recent L spine injection,not severe sepsis (DIEGO from NSAIDs) WBC Down to 11.7, no recurrent fevers, CTA chest, CT chest ,abdominal and pelvic CAT scan and cervical spine CT showed no abnormality. Continue IV daptomycin D2 , status post IV nafcillin discontinued due to rash echo showed no vegetation Repeat blood cultures 11/23 positive for MSSA, patient did not tolerate MRI lumbar, C-spine and thoracic spine, reviewed old prior films with Radiologist Dr. [place] patient has significant cervical and lumbar degenerative disease gallium scan obtained report pending Repeat blood cultures today cont. Toradol and Flexeril for pain control. Behavioral issues Case discussed with , patient has been noted to have erratic behavior since March, from in May since he had an affair with an elderly woman, he has prior history of depression being treated by primary care physician, no history of dementia , will recommend outpatient psychiatric evaluation and dementia workup. acute hypoxic respiratory failure CTA no PE, has new atelectasis, likely from rapid shallow breathing from pain and constipation, encourage incentive spirometry, dc oxygen, patient not on home O2 constipation resolved Continue MiraLax, and stool softener DIEGO due to excess NSAID use, continue to hold nsaids, lisinopril, creatinine kvng lized HTN BP elevated since hydrochlorothiazide and lisinopril on hold, continue amlodipine and increase dose of metoprolol to 50 mg b.i.d. Hypokalemia likely due to hydrochlorothiazide will replace and follow BMP. DVT prophylaxis with subcu heparin Quality Stroke Does the patient have a stroke diagnosis?: No VTE Prior VTE?: No VTE Risk Level:: Medical - moderate - high VTE Device Contraindication: Treatment Not Indicated VTE Drug Contraindication: N/A - Med Ordered
[2020-11-26] MEDS: Potassium Chloride ER 20 MEQ TAB.ER.PRT 40 MEQ PO (14:21)
[2020-11-26] MEDS: LORazepam 2 MG/ML VIAL 1 MG IVPUSH (14:40)
[2020-11-26] MEDS: Ketorolac Tromethamine 15 MG/ML VIAL 30 MG IVPUSH (19:56)
[2020-11-26] MEDS: Atorvastatin Calcium 20 MG TABLET PO (20:16)
[2020-11-27] VITALS (8 sets, daily range): BP systolic 145–158; BP diastolic 77–92; PULSE 70–82; RESP 17–20; TEMP 36.6–37.6; O2SAT 95–97
[2020-11-27] MEDS: 0.9 % Sodium Chloride Flush 3 ML SYRINGE IVFLUSH ×4 (02:36→21:15)
[2020-11-27 03:54] LABS: Anion Gap 14 (12-20); Blood Urea Nitrogen 37 mg/dL (9-16); Calcium 8.1 mg/dL (8.4-10.2); Carbon Dioxide 23 mmol/L (22-29); Chloride 107 mmol/L (96-108); Creatinine Clr Calc Pharmacy 83.7; Estimated Glomerular Filt Rate > 60; Glucose Random 137 mg/dL (60-115); Magnesium 2.1 mg/dL (1.6-2.6); Potassium 4.4 mmol/L (3.3-5.1); Sodium 140 mmol/L (135-145)
[2020-11-27] MEDS: Acetaminophen 325 MG TABLET 650 MG PO ×3 (05:06→23:15)
[2020-11-27] MEDS: Heparin Sodium,Porcine 5,000 UNIT/ML VIAL 5000 UNIT SUBCUT ×3 (05:06→21:15)
[2020-11-27 07:45] LABS: Anion Gap 13 (12-20); Blood Urea Nitrogen 34 mg/dL (9-16); Calcium 8.4 mg/dL (8.4-10.2); Carbon Dioxide 27 mmol/L (22-29); Chloride 104 mmol/L (96-108); Creatinine Clr Calc Pharmacy 86.9; Estimated Glomerular Filt Rate > 60; Glucose Random 73 mg/dL (60-115); Potassium 3.4 mmol/L (3.3-5.1); Sodium 141 mmol/L (135-145)
[2020-11-27] MEDS: Nystatin Powder 15 GM BOTTLE 1 APPL TOPICAL ×2 (10:13→21:15)
[2020-11-27] MEDS: buPROPion HCl XL 150 MG TAB.ER.24H PO (10:13)
[2020-11-27] MEDS: Metoprolol Tartrate 50 MG TABLET PO ×2 (10:13→21:14)
[2020-11-27] MEDS: Cyclobenzaprine HCl 5 MG TABLET PO ×3 (10:13→21:14)
[2020-11-27] MEDS: amLODIPine Besylate 5 MG TABLET PO (10:13)
[2020-11-27] MEDS: polyethylene glycoL 3350 17 GM POWD.PACK PO (10:13)
[2020-11-27] MEDS: DAPTOmycin 500 MG in 0.9 % Sodium Chloride 50 ML 98.99 MG IV (10:13)
[2020-11-27] MEDS: Ketorolac Tromethamine 15 MG/ML VIAL 30 MG IVPUSH (13:05)
[2020-11-27] MEDS: LORazepam 2 MG/ML VIAL 0.5 MG IVPUSH (13:07)
--- NOTE | 2020-11-27 17:15 | P.PNIM_ITS ---
Subjective Subjective Date of Service: 11/27/20 Interval History: Being followed for Staphylococcus bacteremia, feels neck and back pain has improved no fevers, no chills Review of Systems General? headache, no dizziness, no fever chills.? CVS no chest pain, no palpitation.? Respiratory no cough, no sob.? Gastrointestinal no nausea, no vomiting, no abdominal pain Physical Exam Vital Signs: Vital Signs: Last Vital Signs Temp 99.4 F 11/27/20 15:15 Pulse 80 11/27/20 15:15 Resp 20 11/27/20 15:15 BP 146/80 H 11/27/20 15:15 Pulse Ox 96 11/27/20 15:15 Body Mass Index 31.4 General no acute d istress alert orie nted x3? Neck no J VD, neck supple C VS? regular rate r hythm, Respiratory lungs clear to au scultation, no res piratory distress, no wheeze, no rho nchi. Gastrointest inal abdomen soft, nontender, bowel sounds audible, no guarding , no rig idity. Extremities no edema. Neuro s peech clear, movin g all 4 extremitie s Skin rash fading Objective Data Active Medications Acetaminophen (Acetaminophen 325 Mg Tablet) 650 mg PO Q6H [facility] Last Admin: 11/27/20 16:57 Dose: Not Given Documented by: NADINE Non-Admin Reason: Patient Refused Amlodipine Besylate (Amlodipine Besylate 5 Mg Tablet) 5 mg PO DAILY [facility]; Protocol Last Admin: 11/27/20 10:13 Dose: 5 mg Documented by: NADINE Atorvastatin Calcium (Atorvastatin Calcium 20 Mg Tablet) 20 mg PO BEDTIME [facility] Last Admin: 11/26/20 20:16 Dose: 20 mg Documented by: AIMEE Bupropion HCl (Bupropion Hcl Xl 150 Mg Tab.Er.24h) 150 mg PO DAILY [facility] Last Admin: 11/27/20 10:13 Dose: 150 mg Documented by: NADINE Cyclobenzaprine HCl (Cyclobenzaprine Hcl 5 Mg Tablet) 5 mg PO TID [facility] Last Admin: 11/27/20 16:15 Dose: 5 mg Documented by: NADINE Heparin Sodium (Porcine) (Heparin Sodium,Porcine 5,000 Unit/Ml Vial) 5,000 unit SUBCUT Q8H [facility] Last Admin: 11/27/20 13:07 Dose: 5,000 unit Documented by: NADINE Daptomycin 500 mg/ Sodium (Chloride) 60 mls @ 98.992 mls/hr IV Q48H [facility] Last Infusion: 11/27/20 10:52 Dose: 0 mls/hr Documented by: NADINE Ketorolac Tromethamine (Ketorolac Tromethamine 15 Mg/Ml Vial) 30 mg IVPUSH Q6H PRN PRN Reason: Pain, Severe (Pain Scale 7-10) Last Admin: 11/27/20 13:05 Dose: 30 mg Documented by: NADINE Lorazepam (Lorazepam 2 Mg/Ml Vial) 0.5 mg IVPUSH Q6H PRN PRN Reason: back pain/spasm Last Admin: 11/27/20 13:07 Dose: 0.5 mg Documented by: NADINE Melatonin (Melatonin 3 Mg Tablet) 6 mg PO BEDTIME PRN PRN Reason: Insomnia Last Admin: 11/23/20 01:46 Dose: 6 mg Documented by: SAVANNAH Metoprolol Tartrate (Metoprolol Tartrate 50 Mg Tablet) 50 mg PO BID [facility]; Protocol Last Admin: 11/27/20 10:13 Dose: 50 mg Documented by: NADINE Mineral Oil (Mineral Oil Enema 133 Ml Enema) 133 ml [place] ONCE PRN PRN Reason: constipation Last Admin: 11/23/20 11:24 Dose: 133 ml Documented by: YOGI Nystatin (Nystatin Powder 15 Gm Bottle) 1 appl TOPICAL BID [facility]; Protocol Last Admin: 11/27/20 10:13 Dose: 1 appl Documented by: NADINE Pharmacy Consult (Consult Rx Vancomycin Dosing) 1 each MISCELLANE DAILY PRN PRN Reason: Consult order Polyethylene Glycol (Polyethylene Glycol 3350 17 Gm Powd.Pack) 17 gm PO DAILY [facility] Last Admin: 11/27/20 10:13 Dose: 17 gm Documented by: NADINE Senna (Sennosides 8.6 Mg Tablet) 17.2 mg PO BEDTIME PRN PRN Reason: Constipation Sodium Chloride (0.9 % Sodium Chloride Flush 3 Ml Syringe) 3 ml IVFLUSH QSHIFT [facility] Last Admin: 11/27/20 16:15 Dose: 3 ml Documented by: HO.CHICOIC Labs CBC & Chem 7: 11/26/20 05:26 11/27/20 05:58 Labs: Laboratory Results - last 24 hr 11/27/20 11/27/20 03:26 05:58 Anion Gap 14 13 Estim Creat Clear Calc 83.7 86.9 Estimated GFR > 60 > 60 Random Glucose 137 H D 73 D Calcium 8.1 L 8.4 Magnesium 2.1 Microbiology Microbiology Results: Microbiology 11/26/20 14:19 Blood Culture - Preliminary Blood - Venous No growth after 24 hours. 11/26/20 14:14 Blood Culture - Preliminary Blood - Venous Prelim: GPC Gram Stain only Assessment and Plan (1) Hypokalemia: Status: Acute (2) Chronic back pain: Status: Acute (3) Neck pain: Status: Acute (4) HTN (hypertension): Status: Acute (5) Staphylococcus aureus bacteremia: Status: Acute (6) DIEGO (acute kidney injury): Status: Acute (7) Atelectasis: Status: Acute (8) Acute respiratory failure with hypoxia: Status: Acute Assessment and Plan: 70M presented with severe back and neck pain Sepsis present on admission due to staph aureus bacteremia s/p recent L spine injection,not severe sepsis (DIEGO from NSAIDs) No fevers, no chills clinically significantly better WBC Down to 11.7, no recurrent fevers, CTA chest, CT chest ,abdominal and pelvic CAT scan and cervical spine CT showed no abnormality. Continue IV daptomycin D3 , status post IV nafcillin discontinued due to rash echo showed no vegetation Repeat blood cultures / positive for MSSA, patient did not tolerate MRI lumbar, C-spine and thoracic spine, reviewed old prior films with Radiologist Dr. [place] patient has significant cervical and lumbar degenerative disease gallium scan obtained report pending Repeat blood cultures 1/2 positive for Staph aureus, will discuss because antibiotic treatment with ID due to persistent bacteremia cont. Toradol and Flexeril for pain control. Behavioral issues Case discussed with , patient has been noted to have erratic behavior since March, from in May since he had an affair with an elderly woman, he has prior history of depression being treated by primary care physician, no history of dementia , requesting for inpatient psych evaluation Will obtain psychiatric med list from acute hypoxic respiratory failure Resolved, CTA no PE, has new atelectasis, likely from rapid shallow breathing from pain and constipation, encourage incentive spirometry, dc oxygen, patient not on home O2 constipation resolved Continue MiraLax, and stool softener DIEGO due to excess NSAID use, continue to hold nsaids, lisinopril, creatinine normalized HTN BP improved, continue amlodipine and metoprolol to 50 mg b.i.d. Hypokalemia likely due to hydrochlorothiazide, replaced and normalized DVT prophylaxis with subcu heparin Quality Stroke Does the patient have a stroke diagnosis?: No VTE Prior VTE?: No VTE Risk Level:: Medical - moderate - high VTE Device Contraindication: Treatment Not Indicated VTE Drug Contraindication: N/A - Med Ordered
[2020-11-27] MEDS: Gabapentin 100 MG CAPSULE 200 MG PO (21:14)
[2020-11-27] MEDS: Atorvastatin Calcium 20 MG TABLET PO (21:14)
[2020-11-28] VITALS (8 sets, daily range): BP systolic 123–162; BP diastolic 76–85; PULSE 78–95; RESP 15–20; TEMP 36.6–36.8; O2SAT 96–97
[2020-11-28] MEDS: Acetaminophen 325 MG TABLET 650 MG PO ×2 (06:39→15:11)
[2020-11-28] MEDS: Ketorolac Tromethamine 15 MG/ML VIAL 30 MG IVPUSH ×2 (08:55→15:12)
[2020-11-28] MEDS: polyethylene glycoL 3350 17 GM POWD.PACK PO (08:56)
[2020-11-28] MEDS: Metoprolol Tartrate 50 MG TABLET PO ×2 (08:56→20:59)
[2020-11-28] MEDS: Heparin Sodium,Porcine 5,000 UNIT/ML VIAL 5000 UNIT SUBCUT ×2 (08:56→20:59)
[2020-11-28] MEDS: amLODIPine Besylate 5 MG TABLET PO (08:56)
[2020-11-28] MEDS: Nystatin Powder 15 GM BOTTLE 1 APPL TOPICAL ×2 (08:57→20:59)
[2020-11-28] MEDS: 0.9 % Sodium Chloride Flush 3 ML SYRINGE IVFLUSH ×3 (08:57→20:59)
[2020-11-28] MEDS: Cyclobenzaprine HCl 5 MG TABLET PO ×3 (08:57→20:59)
[2020-11-28] MEDS: buPROPion HCl XL 150 MG TAB.ER.24H PO (08:57)
[2020-11-28] MEDS: Gabapentin 100 MG CAPSULE 200 MG PO ×2 (08:57→20:59)
--- NOTE | 2020-11-28 09:48 | HO.PM.IMPN ---
Subjective Subjective Date of Service: 11/28/20 Interval History: Being followed for staph bacteremia, complaining of persistent neck discomfort, and lower back discomfort, although better than before, no nausea no vomiting no fever chills. Review of Systems General no headache, no dizziness no fever chills. CVS no chest pain, no palpitation. Respiratory no cough, no sob. Gastrointestinal no nausea no vomiting, no abdominal pain Review of Systems: Yes all other systems are reviewed and are negative Physical Exam Vital Signs: Vital Signs: Last Vital Signs Temp 98.2 F 11/28/20 07:17 Pulse 90 11/28/20 08:56 Resp 20 11/28/20 07:17 BP 157/79 H 11/28/20 08:56 Pulse Ox 96 11/28/20 07:17 Body Mass Index 31.4 General no acute distress alert oriented x3? Neck no JVD,? neck supple, tenderness around C4-C5, no swelling CVS? regular rate rhythm, Respiratory?lungs clear to auscultation, no respiratory distress,?no wheeze, no rhonchi. Gastrointestinal abdomen soft,?nontender, bowelsounds audible, no?guarding , no rigidity. Extremities?no edema. Lower back no L-spine tenderness, bilateral paraspinal tenderness to palpation, no redness, no swelling, no warmth Neuro speech clear, moving all 4 extremities Skin rash upper back and chest fading Objective Data Active Medications Acetaminophen (Acetaminophen 325 Mg Tablet) 650 mg PO Q6H [facility] Last Admin: 11/28/20 06:39 Dose: 650 mg Documented by: JANIE Amlodipine Besylate (Amlodipine Besylate 5 Mg Tablet) 5 mg PO DAILY [facility]; Protocol Last Admin: 11/28/20 08:56 Dose: 5 mg Documented by: NADINE Atorvastatin Calcium (Atorvastatin Calcium 20 Mg Tablet) 20 mg PO BEDTIME [facility] Last Admin: 11/27/20 21:14 Dose: 20 mg Documented by: JANIE Bupropion HCl (Bupropion Hcl Xl 150 Mg Tab.Er.24h) 150 mg PO DAILY [facility] Last Admin: 11/28/20 08:57 Dose: 150 mg Documented by: NADINE Cyclobenzaprine HCl (Cyclobenzaprine Hcl 5 Mg Tablet) 5 mg PO TID [facility] Last Admin: 11/28/20 08:57 Dose: 5 mg Documented by: NADINE Gabapentin (Gabapentin 100 Mg Capsule) 200 mg PO BID [facility] Last Admin: 11/28/20 08:57 Dose: 200 mg Documented by: NADINE Heparin Sodium (Porcine) (Heparin Sodium,Porcine 5,000 Unit/Ml Vial) 5,000 unit SUBCUT Q8H [facility] Last Admin: 11/28/20 08:56 Dose: 5,000 unit Documented by: NADINE Daptomycin 500 mg/ Sodium (Chloride) 60 mls @ 98.992 mls/hr IV Q48H [facility] Last Infusion: 11/27/20 10:52 Dose: 0 mls/hr Documented by: NADINE Ketorolac Tromethamine (Ketorolac Tromethamine 15 Mg/Ml Vial) 30 mg IVPUSH Q6H PRN PRN Reason: Pain, Severe (Pain Scale 7-10) Last Admin: 11/28/20 08:55 Dose: 30 mg Documented by: NADINE Lorazepam (Lorazepam 2 Mg/Ml Vial) 0.5 mg IVPUSH Q6H PRN PRN Reason: back pain/spasm Last Admin: 11/27/20 13:07 Dose: 0.5 mg Documented by: NADINE Melatonin (Melatonin 3 Mg Tablet) 6 mg PO BEDTIME PRN PRN Reason: Insomnia Last Admin: 11/23/20 01:46 Dose: 6 mg Documented by: SAVANNAH Metoprolol Tartrate (Metoprolol Tartrate 50 Mg Tablet) 50 mg PO BID [facility]; Protocol Last Admin: 11/28/20 08:56 Dose: 50 mg Documented by: NADINE Mineral Oil (Mineral Oil Enema 133 Ml Enema) 133 ml AR ONCE PRN PRN Reason: constipation Last Admin: 11/23/20 11:24 Dose: 133 ml Documented by: YOGI Nystatin (Nystatin Powder 15 Gm Bottle) 1 appl TOPICAL BID [facility]; Protocol Last Admin: 11/28/20 08:57 Dose: 1 appl Documented by: NADINE Pharmacy Consult (Consult Rx Vancomycin Dosing) 1 each MISCELLANE DAILY PRN PRN Reason: Consult order Polyethylene Glycol (Polyethylene Glycol 3350 17 Gm Powd.Pack) 17 gm PO DAILY [facility] Last Admin: 11/28/20 08:56 Dose: 17 gm Documented by: HO.CHICOIC Senna (Sennosides 8.6 Mg Tablet) 17.2 mg PO BEDTIME PRN PRN Reason: Constipation Sodium Chloride (0.9 % Sodium Chloride Flush 3 Ml Syringe) 3 ml IVFLUSH QSHIFT [facility] Last Admin: 11/28/20 08:57 Dose: 3 ml Documented by: NADINE Labs CBC & Chem 7: 11/26/20 05:26 11/27/20 05:58 Microbiology Microbiology Results: Microbiology 11/26/20 14:19 Blood Culture - Preliminary Blood - Venous Prelim: GPC Gram Stain only 11/26/20 14:14 Blood Culture - Preliminary Blood - Venous Prelim: GPC Gram Stain only Assessment and Plan (1) Hypokalemia: Status: Acute (2) Chronic back pain: Status: Acute (3) Neck pain: Status: Acute (4) HTN (hypertension): Status: Acute (5) Atelectasis: Status: Acute (6) Acute respiratory failure with hypoxia: Status: Acute (7) Staphylococcus aureus bacteremia: Status: Acute (8) DIEGO (acute kidney injury): Status: Acute Assessment and Plan: 70M presented with severe back and neck pain Sepsis present on admission due to staph aureus bacteremia s/p recent L spine injection No fevers, no chills clinically better but persistent neck and lower back pain WBC Down to 11.7, no recurrent fevers, CTA chest, CT chest ,abdominal and pelvic CAT scan and cervical spine CT showed no abnormality other than cervical and lumbar arthritis echo showed no vegetation blood cultures 11/22,11/23 ,11/26 positive for MSSA, patient did not tolerate MRI lumbar, C-spine and thoracic spine, gallium scan showed abnormalities at neck and lower paravertebral muscles Case discussed with radiologist Dr. Birmingham he rec ct neck, will obtain CT neck with contrast Continue IV daptomycin D4 , status post IV nafcillin discontinued due to rash, case discussed with ID she recommend continue current IV antibiotic and further imaging studies cont. Toradol and Flexeril for pain control. Follow BMP and CBC at am Behavioral issues Case discussed with , will obtain list of home meds, has history of depression being treated by primary care physician, no history of dementia , Will obtain inpatient psych evaluation once clinically stable No behavioral issues in last 48 hours acute hypoxic respiratory failure Resolved, CTA no PE, has new atelectasis, likely from rapid shallow breathing from pain and constipation, encourage incentive spirometry, dc oxygen, patient not on home O2 constipation resolved Continue MiraLax, and schedule stool softener DIEGO due to excess NSAID use, continue to hold nsaids, lisinopril, creatinine normalized HTN BP improved, but remains elevated, will increase dose of amlodipine to 10 mg, continue metoprolol to 50 mg b.i.d., Lasix and hydrochlorothiazide on hold Hypokalemia likely due to hydrochlorothiazide, replaced and normalized DVT prophylaxis with subcu heparin Quality Stroke Does the patient have a stroke diagnosis?: No VTE Prior VTE?: No VTE Risk Level:: Medical - moderate - high VTE Device Contraindication: Treatment Not Indicated VTE Drug Contraindication: N/A - Med Ordered
[2020-11-28] MEDS: Docusate Sodium 100 MG CAPSULE PO ×2 (15:11→20:59)
[2020-11-28] MEDS: LORazepam 2 MG/ML VIAL 0.5 MG IVPUSH (15:12)
[2020-11-28] MEDS: iohexoL 350 MG/ML 100 ML INFUS..BTL IV (15:57)
[2020-11-28] MEDS: Atorvastatin Calcium 20 MG TABLET PO (21:03)
[2020-11-29] VITALS (10 sets, daily range): BP systolic 122–162; BP diastolic 74–98; PULSE 80–91; RESP 18–20; TEMP 36.4–37.2; O2SAT 94–99
[2020-11-29] MEDS: Acetaminophen 325 MG TABLET 650 MG PO ×3 (05:20→18:26)
[2020-11-29] MEDS: Heparin Sodium,Porcine 5,000 UNIT/ML VIAL 5000 UNIT SUBCUT ×3 (05:20→21:06)
[2020-11-29 06:34] LABS: MANUAL DIFF FLAG NO
[2020-11-29 06:43] LABS: Basophils Percent Auto 0.2 % (0-2); Eosinophils Absolute Auto 0.2 X10*3/uL (0.0-0.4); Eosinophils Percent Auto 1.3 % (0-4); Hematocrit 32.4 % (42-52); Hemoglobin 10.8 g/dl (14.0-18.0); Imm Gran Abs Auto 0.24 X10*3/uL (0.00-0.03); Imm Gran Pct Auto 1.8 % (0.0-0.4); Lymphocytes Absolute Auto 1.1 X10*3/uL (1.2-4.9); Lymphocytes Percent Auto 7.9 % (20-40); Mean Corpuscular HGB Conc 33.3 g/dl (31.0-36.0); Mean Corpuscular Volume 95.9 fL (80-98); Mean Platelet Volume 9.8 fL (9.4-12.4); Monocytes Absolute Auto 0.5 X10*3/uL (0.1-1.2); Monocytes Percent Auto 3.7 % (2-11); Neutrophils Absolute Auto 11.3 X10*3/uL (2.0-8.3); Neutrophils Percent Auto 85.1 % (45-73); Platelet Count 188 X10*3/uL (160-400); Red Blood Count 3.38 X10*6/uL (4.60-5.80); White Blood Count 13.3 X10*3/uL (4.8-10.8)
[2020-11-29 06:55] LABS: Alanine Aminotransferase 66 U/L (0-40); Albumin Level 2.5 g/dL (3.5-5.0); Alkaline Phosphatase 157 U/L (39-117); Anion Gap 11 (12-20); Aspartate Amino Transferase 32 U/L (5-37); Bilirubin Direct 1.3 mg/dL (0.0-0.5); Bilirubin Total 1.9 mg/dL (0.0-1.0); Blood Urea Nitrogen 20 mg/dL (9-16); Carbon Dioxide 29 mmol/L (22-29); Chloride 101 mmol/L (96-108); Creatinine Clr Calc Pharmacy 92.7; Estimated Glomerular Filt Rate > 60; Glucose Random 103 mg/dL (60-115); Sodium 137 mmol/L (135-145); Total Protein 5.4 g/dL (6.5-8.0)
[2020-11-29] MEDS: Metoprolol Tartrate 50 MG TABLET PO ×2 (10:00→21:07)
[2020-11-29] MEDS: Cyclobenzaprine HCl 5 MG TABLET PO ×3 (10:00→21:07)
[2020-11-29] MEDS: polyethylene glycoL 3350 17 GM POWD.PACK PO (10:00)
[2020-11-29] MEDS: Gabapentin 100 MG CAPSULE 200 MG PO ×2 (10:00→21:08)
[2020-11-29] MEDS: Milk of Magnesia 30 ML ORAL.SUSP PO (10:00)
[2020-11-29] MEDS: buPROPion HCl XL 150 MG TAB.ER.24H PO (10:01)
[2020-11-29] MEDS: amLODIPine Besylate 5 MG TABLET PO (10:01)
[2020-11-29] MEDS: Docusate Sodium 100 MG CAPSULE PO ×2 (10:01→21:06)
--- NOTE | 2020-11-29 10:03 | PM.PSYCN ---
History of Present Illness Date of Service: 11/29/20 Chief Complaint: DIEGO Reason for Consult: medication Requesting physician: Zheng Gordon Discussed with referring provider: Yes Sources of Information: patient interviewed and chart reviewed Additional Sources of Information: Dorie HPI Narrative: [age] Y.[age]. male with history of HTN, chronic back pain, kidney stones who presents to [facility] on 11/22/20 from home c/o generalized abdominal pain, then developed chest pain and upper back pain. Sepsis was present on admission due to staph aureus bacteremia in setting of recent L spine injection, not severe sepsis (DIEGO from NSAIDs). Over the course of hospitalization WBC have been trending down, no recurrent fevers, CTA chest, CT chest, abdominal and pelvic CAT scan and cervical spine CT showed no abnormality. Given IV daptomycin. Had echo, showed no vegetation. Per Dr. Gordon notes- Repeat blood cultures 11/23 positive for MSSA, patient did not tolerate MRI lumbar, C-spine and thoracic spine, reviewed old prior films with Radiologist Dr. Birmingham patient has significant cervical and lumbar degenerative disease. Dr. Gordon DC IV Dilaudid due to confusion, hallucination, put on Toradol and Flexeril for pain control. Has had periods of agitation, confusion, likely related to narcotics so D/C narcotics. On 11/26, he required 1:1 sitter due to agitation, yelling. Also found to have acute hypoxic respiratory failure, per CTA no PE, has new atelectasis, likely from rapid shallow breathing from pain and constipation, encouraged incentive spirometry, given oxygen.? Patient has continued to be followed by medicine for persistent MSSA bacteremia. Psych consult placed due to reporting patient having recent manic symptoms and impulsive behaviors, onset March 2020, does not appear at baseline. Reportedly Navin met a woman over the internet and had an affair, his then from him in May 2020. He was reportedly sending the other woman money. He is from [place], [place] but arrived to [facility] because he came to [place] to [place]rera at the [employer]. Recently bought a sports car.? Upon pharmacy record review, he was taking gabapentin 300 mg QAM and 600 mg QHS (last filled 10/16/20), duloxetine 90 mg (last filled 08/11/20), and bupropion XL 150 mg (last filled 11/09/20). The bupropion only has one fill but the duloxetine was started on 12/2019.? I consulted with Navin?s RN this morning. She reports he is fully alert and oriented, doing better than when he came in, has been having emotional episodes in the morning, feels resentful of his past decisions, not confused or hallucinating.? 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 Reports his PCP, Dr. Evy Carter (in [place]) has been prescribing his psych meds but he recently went to group therapy up in [place] for sx of anxiety and depression ?and the doctor there suggested that I add a different antidepressant,? this was when bupropion was added. He reports the psych meds are ?probably not working.? Says he has no hx of being diagnosed with bipolar and most hallucinations at the hospital was the first incidence of this. Discussed his recent psych sx. He reports he does have issues with irritability, ?I can get a little grouchy.? Says he is ?probably? impulsive. Discussed his recent casino visit and he says ?I lost everything and trying to win it back.? He currently denies feeling depressed, but says he has a hx of depression since high school and wants to be on an antidepressant. Furthermore, he says ?lately? his moods have been up and down. Denies issues with memory but says his focus ?hasn?t been as good? and that ?if im talking to you my mind might travel to a hundred different places, I cant concentrate.? I consulted with Navin?s , Dorie, as she has been in close contact with Navin despite their separation. She reports pt does have a hx of difficult sleeping, has been in for 2 sleep studies, had been given a CPAP but doesn?t use it because ?he cant sit still.? Says he is ?always on the go? and she used to call him the squirrel. She does say he would be tired if he didnt sleep, but he still would keep going. She denies hx of manic episodes and says he has had impulsivity but ?not to the extent that started to manifest itself in march.? Denies family history of mental health issues other than one of their children being diagnosed with BPD. She reports their friends had also noticed a change in Navin, as he was being ?rude and belligerent? on a golf trip, ?not his usual self, he is not usually an angry person.? She does report he has a long hx of inattention, his ?mind is always going a mile a minute? and he is always ?two conversations behind everybody else.? He also has a hx of seasonal depression and he ?used to get down in the dumps when winter came in.? She thinks his depression worsened during the pandemic. No hx of head injury or substance/ alcohol abuse.? Medical Evaluation Reviewed: Yes [facility] Medical History Chronic back pain HTN (hypertension) Surgical History History of selective injection of anesthetic agent around lumbar nerve root Diagnostics Vital Signs (24Hr): Vital Signs - 24 hr 11/28/20 12:00 11/28/20 14:59 11/28/20 19:50 Temperature 98.3 F 98 F 97.9 F Pulse Rate 95 78 82 Respiratory Rate 20 15 18 Blood Pressure 137/82 138/78 123/76 Pulse Oximetry 96 96 97 11/28/20 20:59 11/29/20 00:00 11/29/20 04:00 Temperature 97.5 F 98.9 F Pulse Rate 87 84 89 Respiratory Rate 18 18 Blood Pressure 122/74 162/85 H Pulse Oximetry 97 94 11/29/20 07:21 Temperature 98.6 F Pulse Rate 84 Respiratory Rate 20 Blood Pressure 133/79 Pulse Oximetry 95 Body Mass Index 31.4 Labs Results: 11/30/20 14:16 11/30/20 14:15 Labs: Laboratory Results - last 48 hr 11/29/20 11/29/20 05:54 05:54 WBC 13.3 H RBC 3.38 L Hgb 10.8 L Hct 32.4 L MCV 95.9 MCH 32.0 MCHC 33.3 RDW 13.0 Plt Count 188 MPV 9.8 Immature Gran % (Auto) 1.8 H Neut % (Auto) 85.1 H Lymph % (Auto) 7.9 L Schley % (Auto) 3.7 Eos % (Auto) 1.3 Baso % (Auto) 0.2 Lymph # (Auto) 1.1 L Schley # (Auto) 0.5 Eos # (Auto) 0.2 Baso # (Auto) 0.0 Abs Immat Gran (auto) 0.24 H Absolute Neuts (auto) 11.3 H Absolute Nucleated RBC 0.000 Nucleated RBC % (auto) 0.0 Sodium 137 Potassium 4.0 Chloride 101 Carbon Dioxide 29 Anion Gap 11 L BUN 20 H Creatinine 0.75 Estim Creat Clear Calc 92.7 Estimated GFR > 60 Random Glucose 103 D Calcium 8.0 L Total Bilirubin 1.9 H Direct Bilirubin 1.3 H AST 32 ALT 66 H Alkaline Phosphatase 157 H D Total Protein 5.4 L Albumin 2.5 L D Imaging Radiology Impressions: ITS Impressions Abdomen/Pelvis CT 11/22/20 01:14 IMPRESSION: * No etiology for the patient's symptomatology is identified. * Bilateral nonobstructive intrarenal calculi as described. * Incidental 2.6 cm right adrenal nodule with lobe of indeterminate attenuation of [address] adrenal mass protocol on a nonemergent basis for further evaluation. Chest CT 11/22/20 01:14 IMPRESSION: * No etiology for the patient's symptomatology is identified. * Bilateral nonobstructive intrarenal calculi as described. * Incidental 2.6 cm right adrenal nodule with lobe of indeterminate attenuation of [address] adrenal mass protocol on a nonemergent basis for further evaluation. Cervical Spine CT 11/22/20 02:21 IMPRESSION: No acute fracture or traumatic malalignment. Cervical spondylosis as described. Chest X-Ray 11/23/20 08:04 IMPRESSION: Low lung volumes and increasing bibasilar atelectasis or small infiltrates. Chest CTA 11/23/20 09:52 IMPRESSION: No pulmonary embolism. Low lung volumes. New atelectasis or consolidation at the lung bases and trace bilateral pleural effusions. Stable abdominal findings. VTE: negative Gallium Scan Nuclear Medicine 11/25/20 10:00 IMPRESSION: Moderate upper neck activity likely inflammatory lymph nodes. Recommend CT neck exam. Nonspecific increased activity in the transverse colon could be related back to floor are at 24 and 48 hours. Mild increased activity in the paraspinal soft tissues on posterior projection at [address] abdomen pelvis with contrast. No additional areas of abnormal activity seen. Soft Tissue Neck CT 11/28/20 15:58 IMPRESSION: 1. There is no cervical lymphadenopathy, but there are multiple small lymph nodes at multiple levels in the neck. 2. There is increased attenuation in the supraclavicular fat bilaterally, and there is hazy increased attenuation around the thyroid gland bilaterally and in the superior mediastinum. These findings are nonspecific and may be consistent with an inflammatory process. 3. There are pleural effusions bilaterally as described above. There are emphysematous changes in the upper lung benitez. Mental Status Exam Mental Status Exam Narrative: A&O. In hospital attire, normal body habitus. Poor eye contact, inattentive. No Tics or Tremors. No abnormal involuntary movements. Labile but cooperative, engaged. Non-pressured speech, spontaneous with regular rate and rhythm, normal volume and prosody. No prolonged speech latency or dysarthria. Mood is ?up and down,? affect is tearful at times, emotional. Denies SI/SIB/HI upon inquiry. Denies A/VH or delusional thought content. Thoughts are distracted and at times confused regarding my questions. No known cognitive or memory impairment. Insight/ Judgment limited but adequate. Medications Medications Current Medications Generic Name Dose Route Start Last Admin Trade Name Freq PRN Reason Stop Dose Admin Acetaminophen 650 mg 11/24/20 18:00 11/29/20 05:20 Acetaminophen 325 Mg Tablet PO 650 mg Q6H AIDAN Administration Amlodipine Besylate 5 mg 11/22/20 09:00 11/28/20 08:56 Amlodipine Besylate 5 Mg Tablet PO 5 mg DAILY AIDAN Administration Protocol Atorvastatin Calcium 20 mg 11/22/20 21:00 11/28/20 21:03 Atorvastatin Calcium 20 Mg Tablet PO 20 mg BEDTIME AIDAN Administration Bupropion HCl 150 mg 11/22/20 09:00 11/28/20 08:57 Bupropion Hcl Xl 150 Mg Tab.Er.24h PO 150 mg DAILY AIDAN Administration Cyclobenzaprine HCl 5 mg 11/25/20 10:30 11/28/20 20:59 Cyclobenzaprine Hcl 5 Mg Tablet PO 5 mg TID AIDAN Administration Docusate Sodium 100 mg 11/28/20 10:00 11/28/20 20:59 Docusate Sodium 100 Mg Capsule PO 100 mg BID AIDAN Administration Gabapentin 200 mg 11/27/20 21:00 11/28/20 20:59 Gabapentin 100 Mg Capsule PO 200 mg BID AIDAN Administration Heparin Sodium (Porcine) 5,000 unit 11/22/20 05:00 11/29/20 05:20 Heparin Sodium,Porcine 5,000 Unit/Ml Vial SUBCUT 5,000 unit Q8H AIDAN Administration Daptomycin 500 mg/ Sodium 60 mls @ 98.992 mls/hr 11/25/20 11:00 11/27/20 10:52 Chloride IV Infused Q48H AIDAN Infusion Ketorolac Tromethamine 30 mg 11/25/20 10:15 11/28/20 15:12 Ketorolac Tromethamine 15 Mg/Ml Vial IVPUSH 30 mg Q6H PRN Administration Pain, Severe (Pain Scale 7-10) Lorazepam 0.5 mg 11/25/20 15:57 11/28/20 15:12 Lorazepam 2 Mg/Ml Vial IVPUSH 0.5 mg Q6H PRN Administration back pain/spasm Melatonin 6 mg 11/22/20 03:35 11/23/20 01:46 Melatonin 3 Mg Tablet PO 6 mg BEDTIME PRN Administration Insomnia Metoprolol Tartrate 50 mg 11/25/20 09:00 11/28/20 20:59 Metoprolol Tartrate 50 Mg Tablet PO 50 mg BID AIDAN Administration Protocol Mineral Oil 133 ml 11/23/20 08:23 11/23/20 11:24 Mineral Oil Enema 133 Ml Enema CA 133 ml ONCE PRN Administration constipation Nystatin 1 appl 11/25/20 10:30 11/28/20 20:59 Nystatin Powder 15 Gm Bottle TOPICAL 1 appl BID AIDAN Administration Protocol Pharmacy Consult 1 each 11/22/20 14:12 Consult Rx Vancomycin Dosing MISCELLANE DAILY PRN Consult order Polyethylene Glycol 17 gm 11/24/20 14:30 11/28/20 08:56 Polyethylene Glycol 3350 17 Gm Powd.Pack PO 17 gm DAILY AIDAN Administration Senna 17.2 mg 11/22/20 03:35 Sennosides 8.6 Mg Tablet PO BEDTIME PRN Constipation Sodium Chloride 3 ml 11/22/20 08:00 11/28/20 20:59 0.9 % Sodium Chloride Flush 3 Ml Syringe IVFLUSH 3 ml QSHIFT AIDAN Administration Allergies Allergies Allergy/AdvReac Type Severity Reaction Status Date / Time oxycodone AdvReac Itching Verified 11/22/20 00:30 Assessment & Plan Assessment & Plan (1) Acute respiratory failure with hypoxia: Status: Acute Code(s): J96.01 - Acute respiratory failure with hypoxia (2) DIEGO (acute kidney injury): Status: Acute Code(s): N17.9 - Acute kidney failure, unspecified (3) Sepsis: Status: Acute Code(s): A41.9 - Sepsis, unspecified organism (4) Bipolar disorder with depression: Status: Acute Code(s): F31.9 - Bipolar disorder, unspecified Assessment and Plan: [age] Y.[age]. male with history of HTN, chronic back pain, kidney stones who presents to [facility] on 11/22/20 from home c/o generalized abdominal pain, then developed chest pain and upper back pain. Over the course of hospitalization he has presented as labile, confused and disorganized at times. Per collateral contacts, he arrived to this area from [place] due to visiting the [employer] and he has been exhibiting bizarre and impulsive behaviors since March 2020. He was started on cymbalta in December 2019 and recently he was started on bupropion, as well as having a recent script for prednisone. Impulsive behaviors include entering into an online affair, sending this woman money, buying a sports car. Having worsening mood swings, observed by friends and family. His cymbalta was not continued during hospitalization due to apparent non-adherence. He was continued on bupropion XL 150 mg and gabapentin for pain management. Plan: 1. Discussed with Dr. Gordon. Will discontinue bupropion due to sx of hypomania and will start lamictal 25 mg QHS x 2 weeks, then increase to 50 mg as tolerated. Will monitor medication for benefit. -Continue monitoring medically. Patient is currently medically cleared. -Consult requested for med management. -Patient cannot leave AGAINST MEDICAL ADVICE. -Will re-evaluate need for Care Team evaluation once medically cleared. initial treatments ordered collateral history needed from PCP ? Greater than 50% of the session was spent on counseling and/or coordination of care
[2020-11-29] MEDS: Nystatin Powder 15 GM BOTTLE 1 APPL TOPICAL (10:06)
[2020-11-29] MEDS: 0.9 % Sodium Chloride Flush 3 ML SYRINGE IVFLUSH ×3 (10:06→22:09)
[2020-11-29] MEDS: DAPTOmycin 500 MG in 0.9 % Sodium Chloride 50 ML 98.99 MG IV (10:06)
[2020-11-29] MEDS: LORazepam 2 MG/ML VIAL 0.5 MG IVPUSH (11:58)
[2020-11-29] MEDS: Ketorolac Tromethamine 15 MG/ML VIAL 30 MG IVPUSH (11:59)
--- NOTE | 2020-11-29 12:10 | P.PNIM_ITS ---
Subjective Subjective Date of Service: 11/29/20 Interval History: Being followed for persistent MSSA bacteremia Patient very frustrated being in the hospital, denies fever chills, complaining of constipation no bowel movement in last 2 days, denies abdominal pain, has intermittent neck and lower back pain. Review of Systems General no headache, no dizziness no fever chills.? CVS no chest pain, no palpitation.? Respiratory no cough, no sob.? Gastrointestinal no nausea no vomiting, no abdominal pain,+ constipation Musculoskeletal, intermittent neck pain, lower back pain Review of Systems: Yes all other systems are reviewed and are negative Physical Exam Vital Signs: Vital Signs: Last Vital Signs Temp 98.8 F 11/29/20 10:47 Pulse 91 11/29/20 10:47 Resp 20 11/29/20 10:47 BP 161/92 H 11/29/20 10:47 Pulse Ox 94 11/29/20 10:47 Body Mass Index 31.4 General no acute d istress, alert moncho ented x3? Neck no JVD,? neck supple, no tenderness over C spine , no swel ling CVS? regular rate rhythm, Respi ratory?lungs clear to auscultation, no respiratory dis tress,?no wheeze, no rhonchi. Gastro intestinal abdomen soft,?nontender, bowelsounds audibl e, no?guarding , n o rigidity. Extrem ities?no edema. Lo wer back no L-spin e tenderness,no bi lateral paraspinal tenderness today, no redness, no sw elling, no warmth Neuro speech clear , moving all 4 ext remities Skin rash upper back and ch est fading left el bow healing pressu re ulcer no draina ge ? Objective Data Active Medications Acetaminophen (Acetaminophen 325 Mg Tablet) 650 mg PO Q6H [facility] Last Admin: 11/29/20 11:58 Dose: 650 mg Documented by: NADINE Amlodipine Besylate (Amlodipine Besylate 5 Mg Tablet) 5 mg PO DAILY [facility]; Protocol Last Admin: 11/29/20 10:01 Dose: 5 mg Documented by: NADINE Atorvastatin Calcium (Atorvastatin Calcium 20 Mg Tablet) 20 mg PO BEDTIME [facility] Last Admin: 11/28/20 21:03 Dose: 20 mg Documented by: JANIE Bupropion HCl (Bupropion Hcl Xl 150 Mg Tab.Er.24h) 150 mg PO DAILY [facility] Last Admin: 11/29/20 10:01 Dose: 150 mg Documented by: NADINE Cyclobenzaprine HCl (Cyclobenzaprine Hcl 5 Mg Tablet) 5 mg PO TID [facility] Last Admin: 11/29/20 10:00 Dose: 5 mg Documented by: NADINE Docusate Sodium (Docusate Sodium 100 Mg Capsule) 100 mg PO BID [facility] Last Admin: 11/29/20 10:01 Dose: 100 mg Documented by: NADINE Gabapentin (Gabapentin 100 Mg Capsule) 200 mg PO BID [facility] Last Admin: 11/29/20 10:00 Dose: 200 mg Documented by: NADINE Heparin Sodium (Porcine) (Heparin Sodium,Porcine 5,000 Unit/Ml Vial) 5,000 unit SUBCUT Q8H [facility] Last Admin: 11/29/20 11:58 Dose: 5,000 unit Documented by: NADINE Daptomycin 500 mg/ Sodium (Chloride) 60 mls @ 98.992 mls/hr IV Q48H [facility] Last Infusion: 11/29/20 11:09 Dose: 0 mls/hr Documented by: NADINE Ketorolac Tromethamine (Ketorolac Tromethamine 15 Mg/Ml Vial) 30 mg IVPUSH Q6H PRN PRN Reason: Pain, Severe (Pain Scale 7-10) Last Admin: 11/29/20 11:59 Dose: 30 mg Documented by: NADINE Lorazepam (Lorazepam 2 Mg/Ml Vial) 0.5 mg IVPUSH Q6H PRN PRN Reason: back pain/spasm Last Admin: 11/29/20 11:58 Dose: 0.5 mg Documented by: NADINE Melatonin (Melatonin 3 Mg Tablet) 6 mg PO BEDTIME PRN PRN Reason: Insomnia Last Admin: 11/23/20 01:46 Dose: 6 mg Documented by: SAVANNAH Metoprolol Tartrate (Metoprolol Tartrate 50 Mg Tablet) 50 mg PO BID [facility]; Protocol Last Admin: 11/29/20 10:00 Dose: 50 mg Documented by: NADINE Mineral Oil (Mineral Oil Enema 133 Ml Enema) 133 ml [place] ONCE PRN PRN Reason: constipation Last Admin: 11/23/20 11:24 Dose: 133 ml Documented by: YOGI Nystatin (Nystatin Powder 15 Gm Bottle) 1 appl TOPICAL BID [facility]; Protocol Last Admin: 11/29/20 10:06 Dose: 1 appl Documented by: NADINE Pharmacy Consult (Consult Rx Vancomycin Dosing) 1 each MISCELLANE DAILY PRN PRN Reason: Consult order Polyethylene Glycol (Polyethylene Glycol 3350 17 Gm Powd.Pack) 17 gm PO DAILY [facility] Last Admin: 11/29/20 10:00 Dose: 17 gm Documented by: NADINE Senna (Sennosides 8.6 Mg Tablet) 17.2 mg PO BEDTIME PRN PRN Reason: Constipation Sodium Chloride (0.9 % Sodium Chloride Flush 3 Ml Syringe) 3 ml IVFLUSH QSHIFT [facility] Last Admin: 11/29/20 10:06 Dose: 3 ml Documented by: NADINE Labs CBC & Chem 7: 11/29/20 05:54 11/29/20 05:54 Labs: Laboratory Results - last 24 hr 11/29/20 11/29/20 05:54 05:54 MCV 95.9 MCH 32.0 MCHC 33.3 RDW 13.0 Plt Count 188 MPV 9.8 Immature Gran % (Auto) 1.8 H Neut % (Auto) 85.1 H Lymph % (Auto) 7.9 L [place] % (Auto) 3.7 Eos % (Auto) 1.3 Baso % (Auto) 0.2 Lymph # (Auto) 1.1 L [place] # (Auto) 0.5 Eos # (Auto) 0.2 Baso # (Auto) 0.0 Abs Immat Gran (auto) 0.24 H Absolute Neuts (auto) 11.3 H Absolute Nucleated RBC 0.000 Nucleated RBC % (auto) 0.0 Anion Gap 11 L Estim Creat Clear Calc 92.7 Estimated GFR > 60 Random Glucose 103 D Calcium 8.0 L Total Bilirubin 1.9 H Direct Bilirubin 1.3 H AST 32 ALT 66 H Alkaline Phosphatase 157 H D Total Protein 5.4 L Albumin 2.5 L D Microbiology Microbiology Results: Microbiology 11/26/20 14:19 Blood Culture - Final Blood - Venous Staphylococcus aureus 11/26/20 14:14 Blood Culture - Final Blood - Venous Staphylococcus aureus Assessment and Plan (1) Hypokalemia: Status: Acute (2) Chronic back pain: Status: Acute (3) Neck pain: Status: Acute (4) HTN (hypertension): Status: Acute (5) Acute respiratory failure with hypoxia: Status: Acute (6) Staphylococcus aureus bacteremia: Status: Acute (7) DIEGO (acute kidney injury): Status: Acute Assessment and Plan: 70M presented with severe back and neck pain Sepsis present on admission due to staph aureus bacteremia s/p recent L spine injection/left elbow pressure ulcer No fevers, no chills clinically better fluctuating neck and lower back pain that is chronic, source of infection remains unknown WBC Down to 11.7, no recurrent fevers, CTA chest, CT chest ,abdominal and pelvic CAT scan and cervical spine CT showed no abnormality other than cervical and lumbar arthritis echo showed no vegetation blood cultures 11/22,11/23 ,11/26 positive for MSSA, patient did not tolerate MRI lumbar, C-spine and thoracic spine, gallium scan showed abnormalities at neck and lower? paravertebral muscles Case discussed with radiologist Dr. [place] he rec ct neck done on 11/28 showed no source of infection/no fluid collection will obtain L spine ct with contrast today to locate infection,? left elbow is source of infection, but why not responding to antibiotic is of concern Continue IV daptomycin D5 , status post IV nafcillin x couple doses,discontinued due to rash,s/p vanco x 2 d, stopped due to MSSA infection. case discussed with ID she recommend continue current IV antibiotic and further imaging studies as above cont. Toradol and Flexeril for pain control. will repeat blood c/s tomorrow AM Behavioral issues Case discussed with , has behavioral issues for last several months has history of depression being treated by primary care physician, no history of dementia , obtained list of home meds, is on Wellbutrin, Neurontin 300 mg at a.m. and 600 at p.m., unclear about use of duloxetine being followed by psych, await their input No behavioral issues in last 3 days acute hypoxic respiratory failure Resolved, CTA no PE, has new atelectasis, likely from rapid shallow breathing from pain and constipation, encourage incentive spirometry, dc oxygen, patient not on home O2 constipation Continue MiraLax, schedule stool softener, will give milk of Mag DIEGO due to excess NSAID use, continue to hold nsaids, lisinopril, creatinine normalized HTN BP improved, has few high readings,if remains elevated, will increase dose of amlodipine to 10 mg, continue metoprolol? to 50 mg b.i.d., Lasix and hydrochlorothiazide on hold Hypokalemia likely due to hydrochlorothiazide, replaced and normalized DVT prophylaxis with subcu heparin Quality Stroke Does the patient have a stroke diagnosis?: No VTE Prior VTE?: No VTE Risk Level:: Medical - moderate - high VTE Device Contraindication: Treatment Not Indicated VTE Drug Contraindication: N/A - Med Ordered
[2020-11-29] MEDS: iohexoL 350 MG/ML 100 ML INFUS..BTL IV (12:44)
[2020-11-29] MEDS: lamoTRIgine 25 MG TABLET PO (21:06)
[2020-11-29] MEDS: Atorvastatin Calcium 20 MG TABLET PO (21:07)
[2020-11-30] VITALS (7 sets, daily range): BP systolic 134–180; BP diastolic 77–96; PULSE 80–91; RESP 18–20; TEMP 36–37.3; O2SAT 91–99
[2020-11-30] MEDS: LORazepam 2 MG/ML VIAL 0.5 MG IVPUSH (04:16)
--- NOTE | 2020-11-30 04:16 | PC.NURSE ---
Pt becoming confused and agitated. Explained to him earlier that he is NPO at midnight 11/30 due to a procedure he is having. Pt kept requesting water and gave him a few ice chips to hold him over which he agreed that he is not able to have anymore after that. Pt is now agitated, forgetful about the NPO order, stating he is refusing the procedure, only wants water and to go home. Very anxious. Pt accusing this RN and Blayne RN about changing the time on the clocks and making stuff up. Pt taking off his gabriel and monitor refusing to keep them on. Ativan 0.5mg IVP administered. Will continue to monitor.
[2020-11-30] MEDS: Acetaminophen 325 MG TABLET 650 MG PO ×3 (05:29→20:02)
[2020-11-30] MEDS: 0.9 % Sodium Chloride Flush 3 ML SYRINGE IVFLUSH ×3 (10:09→19:59)
[2020-11-30] MEDS: Docusate Sodium 100 MG CAPSULE PO ×2 (10:09→19:59)
[2020-11-30] MEDS: Metoprolol Tartrate 50 MG TABLET PO ×2 (10:10→19:59)
[2020-11-30] MEDS: Cyclobenzaprine HCl 5 MG TABLET PO ×3 (10:11→19:59)
[2020-11-30] MEDS: Gabapentin 100 MG CAPSULE 200 MG PO ×2 (10:11→19:59)
[2020-11-30] MEDS: Ketorolac Tromethamine 15 MG/ML VIAL 30 MG IVPUSH (10:12)
[2020-11-30] MEDS: Nystatin Powder 15 GM BOTTLE 1 APPL TOPICAL ×2 (10:12→19:59)
[2020-11-30] MEDS: Heparin Sodium,Porcine 5,000 UNIT/ML VIAL 5000 UNIT SUBCUT ×2 (12:31→19:59)
--- NOTE | 2020-11-30 12:56 | MHC.CM.PN ---
NIESHA MET WITH PT AND HIS EX- WHO IS AT BEDSIDE. SHE REPORTS BEING CONCERNED ABOUT THE PT NOT BEING IN THE [facility] ARE[place] BECAUSE IT IS TOO FAR FOR FAMILY TO COME TO VISIT. SHE ASKS THAT STR REFERRALS BE PLACED IN THEIR AREA. FIRST CHOICE IS [facility] AND SECOND IS [facility] ([facility]). SHE ALSO EXPRESSES CONCERNS THAT THE PT NEEDS A FULL PSYCH EVAL BECAUSE HE IS NOT MAKING GOOD CHOICES ie COMING TO [place] TO GO TO THE [place] WHEN HE WAS NOT FEELING WELL. SHE SHE SAYS HIS BEHAVIOR IS DIFFERENT. SHE REPORTS SHE SPOKE TO THE MD ABOUT IT OVER THE WEEKEND AND THEY AGREED WITH HER. SHE ALSO REPORTS SHE HAS HAD DIFFICULTY GETTING UPDATES BECAUSE THE MD AND NURSES ARE VERY BUSY. NIESHA PROVIDED CONTACT INFO AND ENCOURAGED HER TO CALL THIS OFFICE WITH QUESTIONS. REFERRALS MADE TO PREFERRED FACILITIES.
[2020-11-30 14:23] LABS: MANUAL DIFF FLAG NO
[2020-11-30 14:34] LABS: Basophils Percent Auto 0.2 % (0-2); Hematocrit 31.9 % (42-52); Hemoglobin 10.6 g/dl (14.0-18.0); Mean Corpuscular HGB Conc 33.2 g/dl (31.0-36.0)
[2020-11-30 14:47] LABS: INTERNATIONAL NORM RATIO 1.3 (0.9-1.1); Prothrombin Time 14.4 SEC (9.9-13.0)
[2020-11-30 14:47] LABS: Eosinophils Absolute Auto 0.2 X10*3/uL (0.0-0.4); Eosinophils Percent Auto 1.5 % (0-4); Imm Gran Pct Auto 1.5 % (0.0-0.4); Lymphocytes Absolute Auto 1.1 X10*3/uL (1.2-4.9); Lymphocytes Percent Auto 8.1 % (20-40); Mean Corpuscular Hemoglobin 31.9 pg (27.0-33.0); Mean Corpuscular Volume 96.1 fL (80-98); Mean Platelet Volume 9.3 fL (9.4-12.4); Monocytes Absolute Auto 0.6 X10*3/uL (0.1-1.2); Monocytes Percent Auto 4.2 % (2-11); NRBC Pct Auto 0.1 /100WBC (0.0-0.2); Neutrophils Absolute Auto 11.4 X10*3/uL (2.0-8.3); Neutrophils Percent Auto 84.5 % (45-73); Platelet Count 232 X10*3/uL (160-400); Red Blood Count 3.32 X10*6/uL (4.60-5.80); White Blood Count 13.5 X10*3/uL (4.8-10.8)
[2020-11-30 14:49] LABS: Partial Thromboplastin Time 37.3 SEC (24.1-38.0)
[2020-11-30 15:52] LABS: Anion Gap 11 (12-20); Blood Urea Nitrogen 25 mg/dL (9-16); Calcium 8.7 mg/dL (8.4-10.2); Carbon Dioxide 27 mmol/L (22-29); Chloride 103 mmol/L (96-108); Creatinine Clr Calc Pharmacy 86.9; Estimated Glomerular Filt Rate > 60; Glucose Random 82 mg/dL (60-115); Potassium 4.7 mmol/L (3.3-5.1); Sodium 136 mmol/L (135-145)
--- NOTE | 2020-11-30 17:35 | P.PNIM_ITS ---
Subjective Subjective Date of Service: 11/30/20 Interval History: Noted by to be confused at times- this is not his baseline No fever Ongoing low back and neck pain Review of Systems Review of Systems: Yes all other systems are reviewed and are negative Physical Exam Vital Signs: Vital Signs: Last Vital Signs Temp 98.9 F 11/30/20 17:03 Pulse 82 11/30/20 17:03 Resp 18 11/30/20 17:03 BP 180/90 H 11/30/20 17:03 Pulse Ox 96 11/30/20 17:03 Body Mass Index 31.4 Gen: in no acute distress HEENT: sclera anicteric, moist mucus membranes Neck: supple Lungs: clear to auscultation bilaterally Heart: regular rate and rhythm, no murmurs Abd: soft, non-tender, non-distended Ext: no edema Skin: warm/well-perfused, L elbow healed ulcer Neuro: alert and oriented x3, normal strength in legs bilaterally Psych: appropriate affect Objective Data Active Medications Acetaminophen (Acetaminophen 325 Mg Tablet) 650 mg PO Q6H [facility] Last Admin: 11/30/20 12:32 Dose: 650 mg Documented by: BÁRBARA Amlodipine Besylate (Amlodipine Besylate 5 Mg Tablet) 10 mg PO DAILY [facility]; Protocol Atorvastatin Calcium (Atorvastatin Calcium 20 Mg Tablet) 20 mg PO BEDTIME [facility] Last Admin: 11/29/20 21:07 Dose: 20 mg Documented by: LIZZETH Cyclobenzaprine HCl (Cyclobenzaprine Hcl 5 Mg Tablet) 5 mg PO TID [facility] Last Admin: 11/30/20 17:01 Dose: 5 mg Documented by: BÁRBARA Docusate Sodium (Docusate Sodium 100 Mg Capsule) 100 mg PO BID [facility] Last Admin: 11/30/20 10:09 Dose: 100 mg Documented by: MONIQUE Gabapentin (Gabapentin 100 Mg Capsule) 200 mg PO BID [facility] Last Admin: 11/30/20 10:11 Dose: 200 mg Documented by: MONIQUE Heparin Sodium (Porcine) (Heparin Sodium,Porcine 5,000 Unit/Ml Vial) 5,000 unit SUBCUT Q8H [facility] Last Admin: 11/30/20 12:31 Dose: 5,000 unit Documented by: BÁRBARA Daptomycin 500 mg/ Sodium (Chloride) 60 mls @ 98.992 mls/hr IV Q48H [facility] Last Infusion: 11/29/20 11:09 Dose: 0 mls/hr Documented by: NADINE Lamotrigine (Lamotrigine 25 Mg Tablet) 25 mg PO BEDTIME [facility] Last Admin: 11/29/20 21:06 Dose: 25 mg Documented by: LIZZETH Melatonin (Melatonin 3 Mg Tablet) 6 mg PO BEDTIME PRN PRN Reason: Insomnia Last Admin: 11/23/20 01:46 Dose: 6 mg Documented by: SAVANNAH Metoprolol Tartrate (Metoprolol Tartrate 50 Mg Tablet) 50 mg PO BID [facility]; Protocol Last Admin: 11/30/20 10:10 Dose: 50 mg Documented by: MONIQUE Mineral Oil (Mineral Oil Enema 133 Ml Enema) 133 ml [place] ONCE PRN PRN Reason: constipation Last Admin: 11/23/20 11:24 Dose: 133 ml Documented by: YOGI Nystatin (Nystatin Powder 15 Gm Bottle) 1 appl TOPICAL BID [facility]; Protocol Last Admin: 11/30/20 10:12 Dose: 1 appl Documented by: MONIQUE Polyethylene Glycol (Polyethylene Glycol 3350 17 Gm Powd.Pack) 17 gm PO DAILY [facility] Last Admin: 11/30/20 10:12 Dose: Not Given Documented by: MONIQUE Non-Admin Reason: Patient Refused Senna (Sennosides 8.6 Mg Tablet) 17.2 mg PO BEDTIME PRN PRN Reason: Constipation Sodium Chloride (0.9 % Sodium Chloride Flush 3 Ml Syringe) 3 ml IVFLUSH QSHIFT [facility] Last Admin: 11/30/20 17:01 Dose: 3 ml Documented by: BÁRBARA Labs CBC & Chem 7: 11/30/20 14:16 11/30/20 14:15 Labs: Laboratory Results - last 24 hr 11/30/20 11/30/20 11/30/20 14:15 14:15 14:16 MCV 96.1 MCH 31.9 MCHC 33.2 RDW 13.0 Plt Count 232 MPV 9.3 L Immature Gran % (Auto) 1.5 H Neut % (Auto) 84.5 H Lymph % (Auto) 8.1 L [place] % (Auto) 4.2 Eos % (Auto) 1.5 Baso % (Auto) 0.2 Lymph # (Auto) 1.1 L [place] # (Auto) 0.6 Eos # (Auto) 0.2 Baso # (Auto) 0.0 Abs Immat Gran (auto) 0.20 H Absolute Neuts (auto) 11.4 H Absolute Nucleated RBC 0.020 H Nucleated RBC % (auto) 0.1 PT 14.4 H INR 1.3 H APTT 37.3 Anion Gap 11 L Estim Creat Clear Calc 86.9 Estimated GFR > 60 Random Glucose 82 Calcium 8.7 D Total Creatine Kinase 25 L D Microbiology Microbiology Results: Microbiology 11/26/20 14:19 Blood Culture - Final Blood - Venous Staphylococcus aureus Assessment and Plan (1) Hypokalemia: Status: Acute (2) Chronic back pain: Status: Acute (3) Neck pain: Status: Acute (4) HTN (hypertension): Status: Acute (5) Acute respiratory failure with hypoxia: Status: Acute (6) Staphylococcus aureus bacteremia: Status: Acute (7) DIEGO (acute kidney injury): Status: Acute Assessment and Plan: hospital d#9 70yo M presented with severe back/neck pain, found to have persistent MSSA bacteremia with psoas abscess on irhgt # psoas abscess # MSSA bacteremia - CT-guided aspiration today, continue daptomycin [had rash with nafcillin] d# from 1st negative culture, ID following, surveillance BCx today [last from 11/26 still positive] - TTE no vegetation # encephalopathy - MRI to rule out septic emboli # acute hypoxic resp failure - resolved, was likely due to atelectasis # mood disorder - continue lamotrigine; full psych consult pending # constipation - bowel regimen # DIEGO - resolved, was likely due to excess NSAID use [avoid]; lisinopril, furosemide, and HCTZ on hold # HTN - increase amlodipine to 10 mg/d, continue metoprolol; lisinopril, furosemide, and HCTZ on hold # hypoK - repleted # VTE ppx - [facility] Quality Stroke Does the patient have a stroke diagnosis?: No VTE Prior VTE?: No VTE Risk Level:: Medical - moderate - high VTE Device Contraindication: Treatment Not Indicated VTE Drug Contraindication: N/A - Med Ordered
[2020-11-30] MEDS: Atorvastatin Calcium 20 MG TABLET PO (19:59)
[2020-11-30] MEDS: lamoTRIgine 25 MG TABLET PO (19:59)
[2020-12-01] VITALS (9 sets, daily range): BP systolic 132–164; BP diastolic 67–87; PULSE 72–86; RESP 17–20; TEMP 36.7–37.3; O2SAT 96–97
[2020-12-01] MEDS: Heparin Sodium,Porcine 5,000 UNIT/ML VIAL 5000 UNIT SUBCUT ×3 (04:53→20:25)
[2020-12-01] MEDS: Acetaminophen 325 MG TABLET 650 MG PO ×3 (04:53→17:20)
--- NOTE | 2020-12-01 09:06 | MHC.CM.PN ---
12/01/20 Male 70 DX DIEGO DP STR vs LT[facility]. Final blood cultures are pending. 1st choice is [facility]. 1st STR choice of STR is [facility] home. They are closed to admissions currently. The PT and His family have been given a list of STR 11/30. They are reviewing. CM will obtain preferences and make referrals.
[2020-12-01] MEDS: Cyclobenzaprine HCl 5 MG TABLET PO ×3 (09:44→20:25)
[2020-12-01] MEDS: 0.9 % Sodium Chloride Flush 3 ML SYRINGE IVFLUSH ×3 (09:44→20:29)
[2020-12-01] MEDS: Gabapentin 100 MG CAPSULE 200 MG PO ×2 (09:44→20:25)
[2020-12-01] MEDS: Metoprolol Tartrate 50 MG TABLET PO ×2 (09:44→20:25)
[2020-12-01] MEDS: Docusate Sodium 100 MG CAPSULE PO ×2 (09:44→20:25)
[2020-12-01] MEDS: amLODIPine Besylate 5 MG TABLET 10 MG PO (09:45)
[2020-12-01] MEDS: polyethylene glycoL 3350 17 GM POWD.PACK PO (09:45)
[2020-12-01] MEDS: Nystatin Powder 15 GM BOTTLE 1 APPL TOPICAL ×2 (09:48→20:25)
--- NOTE | 2020-12-01 11:21 | PC.NURSE ---
Skin assessment completed today. Redness to buttocks. Patient had pressure ulcer to left elbow on admission which has since healed. No other skin issues at this time.
[2020-12-01] MEDS: DAPTOmycin 500 MG in 0.9 % Sodium Chloride 50 ML 98.99 MG IV (12:32)
--- NOTE | 2020-12-01 14:28 | HO.PM.IMPN ---
Subjective Subjective Date of Service: 12/01/20 Interval History: c/o mild neck pain, minimal back pain no fever no chest pain Review of Systems Review of Systems: Yes all other systems are reviewed and are negative Physical Exam Vital Signs: Vital Signs: Last Vital Signs Temp 98.8 F 12/01/20 12:00 Pulse 83 12/01/20 12:00 Resp 20 12/01/20 12:00 BP 139/87 12/01/20 12:00 Pulse Ox 96 12/01/20 12:00 Body Mass Index 31.4 Gen: in no acute distress HEENT: sclera anicteric, moist mucus membranes Neck: supple Lungs: clear to auscultation bilaterally Heart: regular rate and rhythm, no murmurs Abd: soft, non-tender, non-distended Ext: no edema Skin: warm/well-perfused, L elbow healed ulcer Neuro: alert and oriented x3, normal strength in legs bilaterally Psych: appropriate affect Objective Data Active Medications Acetaminophen (Acetaminophen 325 Mg Tablet) 650 mg PO Q6H [facility] Last Admin: 12/01/20 12:45 Dose: 650 mg Documented by: SYEDA Amlodipine Besylate (Amlodipine Besylate 5 Mg Tablet) 10 mg PO DAILY [facility]; Protocol Last Admin: 12/01/20 09:45 Dose: 10 mg Documented by: SYEDA Atorvastatin Calcium (Atorvastatin Calcium 20 Mg Tablet) 20 mg PO BEDTIME [facility] Last Admin: 11/30/20 19:59 Dose: 20 mg Documented by: RAMU Cyclobenzaprine HCl (Cyclobenzaprine Hcl 5 Mg Tablet) 5 mg PO TID [facility] Last Admin: 12/01/20 09:44 Dose: 5 mg Documented by: SYEDA Docusate Sodium (Docusate Sodium 100 Mg Capsule) 100 mg PO BID [facility] Last Admin: 12/01/20 09:44 Dose: 100 mg Documented by: SYEDA Gabapentin (Gabapentin 100 Mg Capsule) 200 mg PO BID [facility] Last Admin: 12/01/20 09:44 Dose: 200 mg Documented by: SYEDA Heparin Sodium (Porcine) (Heparin Sodium,Porcine 5,000 Unit/Ml Vial) 5,000 unit SUBCUT Q8H [facility] Last Admin: 12/01/20 12:45 Dose: 5,000 unit Documented by: SYEDA Daptomycin 500 mg/ Sodium (Chloride) 60 mls @ 98.992 mls/hr IV Q48H [facility] Last Infusion: 12/01/20 13:22 Dose: 0 mls/hr Documented by: SYEDA Lamotrigine (Lamotrigine 25 Mg Tablet) 25 mg PO BEDTIME [facility] Last Admin: 11/30/20 19:59 Dose: 25 mg Documented by: RAMU Melatonin (Melatonin 3 Mg Tablet) 6 mg PO BEDTIME PRN PRN Reason: Insomnia Last Admin: 11/23/20 01:46 Dose: 6 mg Documented by: SAVANNAH Metoprolol Tartrate (Metoprolol Tartrate 50 Mg Tablet) 50 mg PO BID [facility]; Protocol Last Admin: 12/01/20 09:44 Dose: 50 mg Documented by: SYEDA Mineral Oil (Mineral Oil Enema 133 Ml Enema) 133 ml [place] ONCE PRN PRN Reason: constipation Last Admin: 11/23/20 11:24 Dose: 133 ml Documented by: YOGI Nystatin (Nystatin Powder 15 Gm Bottle) 1 appl TOPICAL BID [facility]; Protocol Last Admin: 12/01/20 09:48 Dose: 1 appl Documented by: SYEDA Polyethylene Glycol (Polyethylene Glycol 3350 17 Gm Powd.Pack) 17 gm PO DAILY [facility] Last Admin: 12/01/20 09:45 Dose: 17 gm Documented by: SYEDA Senna (Sennosides 8.6 Mg Tablet) 17.2 mg PO BEDTIME PRN PRN Reason: Constipation Sodium Chloride (0.9 % Sodium Chloride Flush 3 Ml Syringe) 3 ml IVFLUSH QSHIFT [facility] Last Admin: 12/01/20 09:44 Dose: 3 ml Documented by: SYEDA Labs CBC & Chem 7: 11/30/20 14:16 11/30/20 14:15 Labs: Laboratory Results - last 24 hr 11/30/20 11/30/20 11/30/20 14:15 14:15 14:16 MCV 96.1 MCH 31.9 MCHC 33.2 RDW 13.0 Plt Count 232 MPV 9.3 L Immature Gran % (Auto) 1.5 H Neut % (Auto) 84.5 H Lymph % (Auto) 8.[address] [place] % (Auto) 4.2 Eos % (Auto) 1.5 Baso % (Auto) 0.2 Lymph # (Auto) 1.[address] [place] # (Auto) 0.6 Eos # (Auto) 0.2 Baso # (Auto) 0.0 Abs Immat Gran (auto) 0.20 H Absolute Neuts (auto) 11.4 H Absolute Nucleated RBC 0.020 H Nucleated RBC % (auto) 0.1 PT 14.4 H INR 1.3 H APTT 37.3 Anion Gap 11 L Estim Creat Clear Calc 86.9 Estimated GFR > 60 Random Glucose 82 Calcium 8.7 D Total Creatine Kinase 25 L D Microbiology Microbiology Results: Microbiology 11/30/20 16:22 Gram Stain - Final Abscess Intra-abdominal Routine Culture - Preliminary Staphylococcus aureus Anaerobic Culture - Preliminary Culture in progress. 11/30/20 14:15 Blood Culture - Preliminary Blood - Venous Prelim: GPC Gram Stain only 11/26/20 14:14 Blood Culture - Final Blood - Venous Staphylococcus aureus 11/26/20 14:19 Blood Culture - Final Blood - Venous Staphylococcus aureus Assessment and Plan (1) Hypokalemia: Status: Acute (2) Chronic back pain: Status: Acute (3) Neck pain: Status: Acute (4) HTN (hypertension): Status: Acute (5) Acute respiratory failure with hypoxia: Status: Acute (6) Staphylococcus aureus bacteremia: Status: Acute (7) DIEGO (acute kidney injury): Status: Acute Assessment and Plan: hospital d#10 70yo M presented with severe back/neck pain, found to have persistent MSSA bacteremia with psoas abscess # psoas abscess # MSSA bacteremia - CT-guided aspiration 11/30 growing Staph aureus, continue daptomycin [had rash with nafcillin] d# from 1st negative culture, ID following, surveillance BCx from yesterday- 03/21 growing BCx- if positive, discuss need for EMILY with ID/Cardiology - TTE no vegetation # encephalopathy - MRI to rule out septic emboli- no evidence on MRI # acute hypoxic resp failure - resolved, was likely due to atelectasis # mood disorder/hypomania - continue lamotrigine # constipation - bowel regimen # DIEGO - resolved, was likely due to excess NSAID use [avoid]; lisinopril, furosemide, and HCTZ on hold # HTN - increased amlodipine to 10 mg/d and now better controlled, continue metoprolol; lisinopril, furosemide, and HCTZ on hold # hypoK - repleted # VTE ppx - UFH # dispo - will need STR Quality Stroke Does the patient have a stroke diagnosis?: No VTE Prior VTE?: No VTE Risk Level:: Medical - moderate - high VTE Device Contraindication: Treatment Not Indicated VTE Drug Contraindication: N/A - Med Ordered
[2020-12-01] MEDS: lamoTRIgine 25 MG TABLET PO (20:25)
[2020-12-01] MEDS: Atorvastatin Calcium 20 MG TABLET PO (20:25)
[2020-12-01] MEDS: Melatonin 3 MG TABLET 6 MG PO (20:27)
[2020-12-02] VITALS (9 sets, daily range): BP systolic 111–133; BP diastolic 64–84; PULSE 62–100; RESP 15–18; TEMP 36.1–37.7; O2SAT 92–97
[2020-12-02] MEDS: Acetaminophen 325 MG TABLET 650 MG PO ×3 (04:47→19:11)
[2020-12-02] MEDS: Heparin Sodium,Porcine 5,000 UNIT/ML VIAL 5000 UNIT SUBCUT ×3 (04:52→21:54)
[2020-12-02] MEDS: 0.9 % Sodium Chloride Flush 3 ML SYRINGE IVFLUSH ×3 (08:29→21:54)
[2020-12-02] MEDS: Gabapentin 100 MG CAPSULE 200 MG PO ×2 (08:29→21:53)
[2020-12-02] MEDS: Metoprolol Tartrate 50 MG TABLET PO ×2 (08:29→21:53)
[2020-12-02] MEDS: Docusate Sodium 100 MG CAPSULE PO ×2 (08:30→21:53)
[2020-12-02] MEDS: Cyclobenzaprine HCl 5 MG TABLET PO ×3 (08:30→21:53)
[2020-12-02] MEDS: amLODIPine Besylate 5 MG TABLET 10 MG PO (08:33)
[2020-12-02] MEDS: polyethylene glycoL 3350 17 GM POWD.PACK PO (08:33)
[2020-12-02] MEDS: Nystatin Powder 15 GM BOTTLE 1 APPL TOPICAL ×2 (13:24→22:02)
--- NOTE | 2020-12-02 14:33 | P.CDIC_ITS ---
CDI Concurrent Query Documentation Clarification: PHYSICIAN'S DOCUMENTATION REQUEST Date of Query: 12/02/20 1434 Patient Name: Navin Alejandro Admit Date: 11/22/20 Dear Doctor, A review of the medical record indicates additional documentation may be needed. Please review below and update the documentation accordingly. Clinical Indicators: Risk Factors/Clinical Indicators/Treatments Progress note 12/01/20: Encephalopathy MRI to rule out septic emboli- no evidence on MRI Based on the above, please further specify, in the Progress Notes, the known or suspected type of the documented encephalopathy: * Metabolic * Septic * Toxic * Toxic metabolic * Due to a specified condition (such as UTI, hyponatremia, CVA, etc.) * Other (please specify) * Unable to determine Use of terms such as suspected, likely, concern for, or probable (associated with a specific diagnosis that is being evaluated, monitored, or treated as if it exists) are acceptable and can be coded in the inpatient setting, when documented at the time of discharge. Thank you, Jeannette Prasad RN Extension: [phone] Please use your independent medical judgment in providing your response. THIS QUERY IS PART OF THE PERMANENT MEDICAL RECORD Provider Response: Other Other Diagnosis: due to bacteremia/infection
--- NOTE | 2020-12-02 14:46 | MHC.CM.PN ---
Male 70 DX DIEGO Patient is not ready to discharge. Blood cultures are pending. [facility] following. They do not have a bed available at this time. GEE[facility]son will be contacted at Discharge for a bed request. Updates are beeing sent. CM will follow.
--- NOTE | 2020-12-02 15:39 | HO.PM.IMPN ---
Subjective Subjective Date of Service: 12/02/20 Interval History: Frustrated at length of hospitalization C/o neck pain No fever Insomnia 11/30/20 BCx growing Staphylococcus... Review of Systems Review of Systems: Yes all other systems are reviewed and are negative Physical Exam Vital Signs: Vital Signs: Last Vital Signs Temp 99.5 F 12/02/20 11:08 Pulse 100 12/02/20 12:01 Resp 18 12/02/20 11:08 BP 122/72 12/02/20 12:01 Pulse Ox 96 12/02/20 12:01 Body Mass Index 31.4 Gen: in no acute distress HEENT: sclera anicteric, moist mucus membranes Neck: supple Lungs: clear to auscultation bilaterally Heart: regular rate and rhythm, no murmurs Abd: soft, non-tender, non-distended Ext: no edema Skin: warm/well-perfused, L elbow healed ulcer Neuro: alert and oriented x3, normal strength in legs bilaterally Psych: appropriate affect Objective Data Active Medications Acetaminophen (Acetaminophen 325 Mg Tablet) 650 mg PO Q6H [facility] Last Admin: 12/02/20 13:25 Dose: 650 mg Documented by: SYEDA Amlodipine Besylate (Amlodipine Besylate 5 Mg Tablet) 10 mg PO DAILY [facility]; Protocol Last Admin: 12/02/20 08:33 Dose: 10 mg Documented by: SYEDA Atorvastatin Calcium (Atorvastatin Calcium 20 Mg Tablet) 20 mg PO BEDTIME [facility] Last Admin: 12/01/20 20:25 Dose: 20 mg Documented by: RAMU Cyclobenzaprine HCl (Cyclobenzaprine Hcl 5 Mg Tablet) 5 mg PO TID [facility] Last Admin: 12/02/20 08:30 Dose: 5 mg Documented by: SYEDA Docusate Sodium (Docusate Sodium 100 Mg Capsule) 100 mg PO BID [facility] Last Admin: 12/02/20 08:30 Dose: 100 mg Documented by: SYEDA Gabapentin (Gabapentin 100 Mg Capsule) 200 mg PO BID [facility] Last Admin: 12/02/20 08:29 Dose: 200 mg Documented by: SYEDA Heparin Sodium (Porcine) (Heparin Sodium,Porcine 5,000 Unit/Ml Vial) 5,000 unit SUBCUT Q8H [facility] Last Admin: 12/02/20 13:24 Dose: 5,000 unit Documented by: SYEDA Lamotrigine (Lamotrigine 25 Mg Tablet) 25 mg PO BEDTIME [facility] Last Admin: 12/01/20 20:25 Dose: 25 mg Documented by: RAMU Lidocaine (Lidocaine 4 % Patch Adh..Patch) 1 patch TRANSDERMA DAILY [facility]; Protocol Melatonin (Melatonin 3 Mg Tablet) 6 mg PO BEDTIME PRN PRN Reason: Insomnia Last Admin: 12/01/20 20:27 Dose: 6 mg Documented by: RAMU Metoprolol Tartrate (Metoprolol Tartrate 50 Mg Tablet) 50 mg PO BID [facility]; Protocol Last Admin: 12/02/20 08:29 Dose: 50 mg Documented by: SYEDA Mineral Oil (Mineral Oil Enema 133 Ml Enema) 133 ml MD ONCE PRN PRN Reason: constipation Last Admin: 11/23/20 11:24 Dose: 133 ml Documented by: YOGI Nystatin (Nystatin Powder 15 Gm Bottle) 1 appl TOPICAL BID [facility]; Protocol Last Admin: 12/02/20 13:24 Dose: 1 appl Documented by: SYEDA Polyethylene Glycol (Polyethylene Glycol 3350 17 Gm Powd.Pack) 17 gm PO DAILY [facility] Last Admin: 12/02/20 08:33 Dose: 17 gm Documented by: SYEDA Senna (Sennosides 8.6 Mg Tablet) 17.2 mg PO BEDTIME PRN PRN Reason: Constipation Sodium Chloride (0.9 % Sodium Chloride Flush 3 Ml Syringe) [facility] Admin: 12/02/20 08:29 Dose: 3 ml Documented by: SYEDA Temazepam (Temazepam 15 Mg Capsule) 15 mg PO BEDTIME PRN PRN Reason: insomnia Labs CBC & Chem 7: 11/30/20 14:16 11/30/20 14:15 Labs: Laboratory Results - last 24 hr 11/30/20 14:15 Anion Gap 11 L Estim Creat Clear Calc 86.9 Estimated GFR > 60 Random Glucose 82 Calcium 8.7 D Total Creatine Kinase 25 L D Microbiology Microbiology Results: Microbiology 11/30/20 14:15 Blood Culture - Preliminary Blood - Venous Staphylococcus species 11/30/20 14:15 Blood Culture - Preliminary Blood - Venous Staphylococcus species 11/26/20 14:14 Blood Culture - Final Blood - Venous Staphylococcus aureus 11/30/20 16:22 Gram Stain - Final Abscess Intra-abdominal Routine Culture - Final Staphylococcus aureus Anaerobic Culture - Preliminary Culture in progress. Echocardiogram Echocardiogram Results: TTE 11/24/20 - The left ventricular systolic function is normal.? The visually estimated ejection fraction is between 60-65%. ? - There is mild calcification of the aortic valve. ? - There is mild mitral annular calcification.? - There is mild dilatation of the ascending aorta measuring 4.00 cm.? - No obvious valvular vegetation noted.? Assessment and Plan (1) Hypokalemia: Status: Acute (2) Chronic back pain: Status: Acute (3) Neck pain: Status: Acute (4) HTN (hypertension): Status: Acute (5) Acute respiratory failure with hypoxia: Status: Acute (6) Staphylococcus aureus bacteremia: Status: Acute (7) DIEGO (acute kidney injury): Status: Acute Assessment and Plan: hospital d#11 70yo M presented with severe back/neck pain, found to have persistent MSSA bacteremia with psoas abscess # psoas abscess # MSSA bacteremia, persistent - ID following - CT-guided aspiration 11/30 growing Staph aureus - continue daptomycin [had rash with nafcillin] d#8 but will need 42d via PICC from 1st negative BCx, still awaiting clearance and 11/30/20 BCx still positive - TTE no vegetation 11/24; will consult cardiology to consider EMILY # encephalopathy, septic - no emboli on MRI. treat bacteremia as above # acute hypoxic resp failure - resolved, was likely due to atelectasis # mood disorder/hypomania - continue lamotrigine # constipation - bowel regimen # insomnia - temazepam prn # DIEGO - resolved, was likely due to excess NSAID use [avoid]; lisinopril, furosemide, and HCTZ on hold # HTN - increased amlodipine to 10 mg/d and now better controlled, continue metoprolol; lisinopril, furosemide, and HCTZ on hold # hypoK - repleted # VTE ppx - UFH # dispo - will need STR once bloodstream clears Quality Stroke Does the patient have a stroke diagnosis?: No VTE Prior VTE?: No VTE Risk Level:: Medical - moderate - high VTE Device Contraindication: Treatment Not Indicated VTE Drug Contraindication: N/A - Med Ordered
[2020-12-02] MEDS: Lidocaine 4 % Patch ADH..PATCH 1 PATCH TRANSDERMA (16:36)
[2020-12-02] MEDS: Atorvastatin Calcium 20 MG TABLET PO (21:53)
[2020-12-02] MEDS: lamoTRIgine 25 MG TABLET PO (21:54)
[2020-12-03] VITALS (9 sets, daily range): BP systolic 118–156; BP diastolic 71–84; PULSE 75–88; RESP 14–18; TEMP 36.1–37.7; O2SAT 95–98
[2020-12-03] MEDS: Acetaminophen 325 MG TABLET 650 MG PO ×4 (00:43→18:06)
[2020-12-03] MEDS: Heparin Sodium,Porcine 5,000 UNIT/ML VIAL 5000 UNIT SUBCUT ×3 (05:54→21:09)
[2020-12-03 06:52] LABS: Hematocrit 29.9 % (42-52); Hemoglobin 9.6 g/dl (14.0-18.0); Mean Corpuscular HGB Conc 32.1 g/dl (31.0-36.0); Mean Corpuscular Hemoglobin 31.7 pg (27.0-33.0); Mean Corpuscular Volume 98.7 fL (80-98); Mean Platelet Volume 9.1 fL (9.4-12.4); Platelet Count 319 X10*3/uL (160-400); Red Blood Count 3.03 X10*6/uL (4.60-5.80); Red Cell Distribution Width 13.2 % (11.0-16.0)
[2020-12-03 07:10] LABS: Anion Gap 11 (12-20); Blood Urea Nitrogen 19 mg/dL (9-16); Calcium 8.6 mg/dL (8.4-10.2); Carbon Dioxide 28 mmol/L (22-29); Chloride 103 mmol/L (96-108); Creatinine Clr Calc Pharmacy 84.8; Estimated Glomerular Filt Rate > 60; Glucose Random 87 mg/dL (60-115); Potassium 4.1 mmol/L (3.3-5.1); Sodium 138 mmol/L (135-145)
[2020-12-03] MEDS: polyethylene glycoL 3350 17 GM POWD.PACK PO (08:43)
[2020-12-03] MEDS: Cyclobenzaprine HCl 5 MG TABLET PO ×3 (08:43→21:09)
[2020-12-03] MEDS: Gabapentin 100 MG CAPSULE 200 MG PO ×2 (08:43→21:09)
[2020-12-03] MEDS: 0.9 % Sodium Chloride Flush 3 ML SYRINGE IVFLUSH ×3 (08:43→21:24)
[2020-12-03] MEDS: amLODIPine Besylate 5 MG TABLET 10 MG PO (08:43)
[2020-12-03] MEDS: Docusate Sodium 100 MG CAPSULE PO ×2 (08:43→21:09)
[2020-12-03] MEDS: Metoprolol Tartrate 50 MG TABLET PO ×2 (08:44→21:23)
[2020-12-03] MEDS: Nystatin Powder 15 GM BOTTLE 1 APPL TOPICAL ×2 (08:44→21:32)
[2020-12-03] MEDS: Lidocaine 4 % Patch ADH..PATCH 1 PATCH TRANSDERMA (08:44)
--- NOTE | 2020-12-03 09:29 | P.PNIM_ITS ---
Subjective Subjective Date of Service: 12/03/20 Interval History: No fever No chest pain Review of Systems Review of Systems: Yes all other systems are reviewed and are negative Physical Exam Vital Signs: Vital Signs: Last Vital Signs Temp 98.2 F 12/03/20 07:53 Pulse 75 12/03/20 08:44 Resp 17 12/03/20 07:53 BP 142/71 H 12/03/20 08:44 Pulse Ox 96 12/03/20 07:53 Body Mass Index 31.4 Gen: in no acute distress HEENT: sclera anicteric, moist mucus membranes Neck: supple Lungs: clear to auscultation bilaterally Heart: regular rate and rhythm, no murmurs Abd: soft, non-tender, non-distended Ext: no edema Skin: warm/well-perfused, L elbow healed ulcer Neuro: alert and oriented x3, normal strength in legs bilaterally Psych: appropriate affect Objective Data Active Medications Acetaminophen (Acetaminophen 325 Mg Tablet) 650 mg PO Q6H [facility] [place] Last Admin: 12/03/20 05:55 Dose: 650 mg Documented by: CHANTELLE Amlodipine Besylate (Amlodipine Besylate 5 Mg Tablet) 10 mg PO DAILY [facility] [place]; Protocol Last Admin: 12/03/20 08:43 Dose: 10 mg Documented by: LAMONTE Atorvastatin Calcium (Atorvastatin Calcium 20 Mg Tablet) 20 mg PO BEDTIME [facility] [place] Last Admin: 12/02/20 21:53 Dose: 20 mg Documented by: CHANTELLE Cyclobenzaprine HCl (Cyclobenzaprine Hcl 5 Mg Tablet) 5 mg PO TID [facility] [place] Last Admin: 12/03/20 08:43 Dose: 5 mg Documented by: LAMONTE Docusate Sodium (Docusate Sodium 100 Mg Capsule) 100 mg PO BID [facility] [place] Last Admin: 12/03/20 08:43 Dose: 100 mg Documented by: LAMONTE Gabapentin (Gabapentin 100 Mg Capsule) 200 mg PO BID [facility] [place] Last Admin: 12/03/20 08:43 Dose: 200 mg Documented by: LAMONTE Heparin Sodium (Porcine) (Heparin Sodium,Porcine 5,000 Unit/Ml Vial) 5,000 unit SUBCUT Q8H [facility] [place] Last Admin: 12/03/20 05:54 Dose: 5,000 unit Documented by: CHANTELLE Lamotrigine (Lamotrigine 25 Mg Tablet) 25 mg PO BEDTIME [facility] [place] Last Admin: 12/02/20 21:54 Dose: 25 mg Documented by: CHANTELLE Lidocaine (Lidocaine 4 % Patch Adh..Patch) 1 patch TRANSDERMA DAILY [facility]; Protocol Last Admin: 12/03/20 08:44 Dose: 1 patch Documented by: LAMONTE Metoprolol Tartrate (Metoprolol Tartrate 50 Mg Tablet) 50 mg PO BID [facility]; Protocol Last Admin: 12/03/20 08:44 Dose: 50 mg Documented by: LAMONTE Mineral Oil (Mineral Oil Enema 133 Ml Enema) 133 ml ID ONCE PRN PRN Reason: constipation Last Admin: 11/23/20 11:24 Dose: 133 ml Documented by: YOGI Nystatin (Nystatin Powder 15 Gm Bottle) 1 appl TOPICAL BID [facility]; Protocol Last Admin: 12/03/20 08:44 Dose: 1 appl Documented by: LAMONTE Polyethylene Glycol (Polyethylene Glycol 3350 17 Gm Powd.Pack) 17 gm PO DAILY [facility] Last Admin: 12/03/20 08:43 Dose: 17 gm Documented by: LAMONTE Senna (Sennosides 8.6 Mg Tablet) 17.2 mg PO BEDTIME PRN PRN Reason: Constipation Sodium Chloride (0.9 % Sodium Chloride Flush 3 Ml Syringe) 3 ml IVFLUSH QSHIFT [facility] [place] Last Admin: 12/03/20 08:43 Dose: 3 ml Documented by: LAMONTE Temazepam (Temazepam 15 Mg Capsule) 15 mg PO BEDTIME PRN PRN Reason: insomnia Labs CBC & Chem 7: 12/03/20 06:18 12/03/20 06:18 Labs: Laboratory Results - last 24 hr 11/30/20 12/03/20 12/03/20 14:15 06:18 06:18 MCV 98.7 H MCH 31.7 MCHC 32.1 RDW 13.2 Plt Count 319 D MPV 9.1 L Absolute Nucleated RBC 0.000 Nucleated RBC % (auto) 0.0 Anion Gap 11 L 11 L Estim Creat Clear Calc 86.9 84.8 Estimated GFR > 60 > 60 Random Glucose 82 87 Calcium 8.7 D 8.6 Total Creatine Kinase 25 L D 11 L D Microbiology Microbiology Results: Microbiology 11/30/20 16:22 Gram Stain - Final Abscess Intra-abdominal Routine Culture - Final Staphylococcus aureus Anaerobic Culture - Final 12/02/20 06:30 Blood Culture - Preliminary Blood - Venous No growth after 24 hours. 12/02/20 06:40 Blood Culture - Preliminary Blood - Venous No growth after 24 hours. 11/30/20 14:15 Blood Culture - Final Blood - Venous Staphylococcus aureus 11/30/20 14:15 Blood Culture - Final Blood - Venous Staphylococcus aureus 11/26/20 14:14 Blood Culture - Final Blood - Venous Staphylococcus aureus Assessment and Plan (1) Hypokalemia: Status: Acute (2) Chronic back pain: Status: Acute (3) Neck pain: Status: Acute (4) HTN (hypertension): Status: Acute (5) Acute respiratory failure with hypoxia: Status: Acute (6) Staphylococcus aureus bacteremia: Status: Acute (7) DIEGO (acute kidney injury): Status: Acute Assessment and Plan: hospital d#12 70yo M presented with severe back/neck pain, found to have persistent MSSA bacteremia with psoas abscess # psoas abscess # MSSA bacteremia, persistent - ID following - CT-guided aspiration 11/30 growing MSSA - continue daptomycin [had rash with nafcillin] d#8 but will need 42d via PICC from 1st negative BCx, still awaiting clearance and 11/30/20 BCx still positive, 12/02/20 BCx with no growth at 24 hr - TTE no vegetation 11/24; will consult cardiology to consider EMILY, discuss with ID # neck pain - CT C-spine to r/o cervical epidural abscess given bacteremia - lidocaine patch, prn hydromorphone # encephalopathy, septic - no emboli on MRI. treat bacteremia as above # acute hypoxic resp failure - resolved, was likely due to atelectasis # mood disorder/hypomania - continue lamotrigine # constipation - bowel regimen # insomnia - temazepam prn # DIEGO - resolved, was likely due to excess NSAID use [avoid]; lisinopril, furosemide, and HCTZ on hold # HTN - amlodipine + metoprolol; lisinopril, furosemide, and HCTZ on hold # hypoK - repleted # VTE ppx - UFH # dispo - will need STR once bloodstream clears Quality Stroke Does the patient have a stroke diagnosis?: No VTE Prior VTE?: No VTE Risk Level:: Medical - moderate - high VTE Device Contraindication: Treatment Not Indicated VTE Drug Contraindication: N/A - Med Ordered
[2020-12-03 10:04] LABS: C Reactive Protein 7.78 mg/dL (< or = 0.50)
[2020-12-03] MEDS: iohexoL 350 MG/ML 100 ML INFUS..BTL IV (12:17)
[2020-12-03] MEDS: HYDROmorphone HCl 0.5 MG/0.5 ML SYRINGE IVPUSH (12:26)
--- NOTE | 2020-12-03 16:26 | P.CNNE_ITS ---
History of Present Illness Data of Consult Service Date: 12/03/20 Primary Care Provider: Evy Carter MD HPI Reason for consult: Confusion 70 years old man who was admitted with abdominal pain and was later noted to be with staff areas bacteremia and confusion. There was no sign of any focal weakness like stroke or seizure. He was not complaining of pain or headache or dizziness. Review of Systems Review of Systems: Recent abdominal pain and chest pain. No cold or flu-like illness. PMFSH Past Medical History Medical History Chronic back pain HTN (hypertension) Surgical History Surgical History History of selective injection of anesthetic agent around lumbar nerve root Social History Social History Household Members: None Housing: Other Housing Other:: room at a boarding house Alcohol intake: current Alcohol intake frequency: holidays/special occasions only Patient Tobacco Use Status: Never used Tobacco Use of substances other than those prescribed or required for medical reasons: No Currently Displaying Signs/Symptoms of Drug Intoxication Withdrawal: No Have you been hit, kicked, punched, or otherwise hurt by someone within the past year? If so, by whom?: No Do you feel safe in your current relationship?: No Current Relationship Is there a partner from a previous relationship who is making you feel unsafe now?: No Are you made to feel afraid or neglected: No Advance Directives: No Advance Directives Information Provided: Yes Do you have thoughts of harming others: None Do you have a plan to hurt others: No Plan Recently lost weight without trying: No Nutrition Risks: No Nutritional Risk Current occupational status: retired Meds Allergies Allergy/AdvReac Type Severity Reaction Status Date / Time oxycodone AdvReac Itching Verified 11/22/20 00:30 Active Medications: Current Medications Generic Name Dose Route Start Last Admin Trade Name Freq PRN Reason Stop Dose Admin Acetaminophen 650 mg 11/24/20 18:00 12/03/20 12:25 Acetaminophen 325 Mg Tablet PO 650 mg Q6H [facility] Administration Amlodipine Besylate 10 mg 12/01/20 09:00 12/03/20 08:43 Amlodipine Besylate 5 Mg Tablet PO 10 mg DAILY [facility] Administration Protocol Atorvastatin Calcium 20 mg 11/22/20 21:00 12/02/20 21:53 Atorvastatin Calcium 20 Mg Tablet PO 20 mg BEDTIME [facility] Administration Cyclobenzaprine HCl 5 mg 11/25/20 10:30 12/03/20 15:18 Cyclobenzaprine Hcl 5 Mg Tablet PO 5 mg TID [facility]AN Administration Docusate Sodium 100 mg 11/28/20 10:00 12/03/20 08:43 Docusate Sodium 100 Mg Capsule PO 100 mg BID [facility] Administration Gabapentin 200 mg 11/27/20 21:00 12/03/20 08:43 Gabapentin 100 Mg Capsule PO 200 mg BID [facility] Administration Heparin Sodium (Porcine) 5,000 unit 11/22/20 05:00 12/03/20 12:26 Heparin Sodium,Porcine 5,000 Unit/Ml Vial SUBCUT 5,000 unit Q8H [facility] Administration Hydromorphone HCl 0.5 mg 12/03/20 09:36 12/03/20 12:26 Hydromorphone Hcl 0.5 Mg/0.5 Ml Syringe IVPUSH 0.5 mg Q4H PRN Administration severe pain Protocol Lamotrigine 25 mg 11/29/20 21:00 12/02/20 21:54 Lamotrigine 25 Mg Tablet PO 25 mg BEDTIME [facility] Administration Lidocaine 1 patch 12/02/20 15:45 12/03/20 08:44 Lidocaine 4 % Patch Adh..Patch TRANSDERMA 1 patch DAILY [facility] Administration Protocol Metoprolol Tartrate 50 mg 11/25/20 09:00 12/03/20 08:44 Metoprolol Tartrate 50 Mg Tablet PO 50 mg BID [facility] Administration Protocol Mineral Oil 133 ml 11/23/20 08:23 11/23/20 11:24 Mineral Oil Enema 133 Ml Enema NM 133 ml ONCE PRN Administration constipation Nystatin 1 appl 11/25/20 10:30 12/03/20 08:44 Nystatin Powder 15 Gm Bottle TOPICAL 1 appl BID [facility] Administration Protocol Polyethylene Glycol 17 gm 11/24/20 14:30 12/03/20 08:43 Polyethylene Glycol 3350 17 Gm Powd.Pack PO 17 gm DAILY [facility] Administration Senna 17.2 mg 11/22/20 03:35 Sennosides 8.6 Mg Tablet PO BEDTIME PRN Constipation Sodium Chloride 3 ml 11/22/20 08:00 12/03/20 15:18 0.9 % Sodium Chloride Flush 3 Ml Syringe IVFLUSH 3 ml QSHIFT [facility] Administration Temazepam 15 mg 12/02/20 15:36 Temazepam 15 Mg Capsule PO BEDTIME PRN insomnia Home Medications Medication Instructions Recorded Confirmed Last Taken Type amlodipine 5 mg tablet 1 tab PO DAILY 11/22/20 11/22/20 11/21/20 History atorvastatin 20 mg tablet 1 tab PO BEDTIME 11/22/20 11/22/20 11/21/20 History bupropion HCl 150 mg 24 hr tablet, 1 tab PO QAM 11/22/20 11/22/20 11/21/20 History extended release gabapentin 300 mg capsule mg PO 11/22/20 11/21/20 History hydrochlorothiazide 25 mg tablet 1 tab PO DAILY 11/22/20 11/22/20 11/21/20 History lisinopril 10 mg tablet 1 tab PO DAILY 11/22/20 11/22/20 11/21/20 History Physical Exam Vital Signs: Vital Signs: Last Vital Signs Temp 100 F 12/03/20 15:12 Pulse 84 12/03/20 15:12 Resp 18 12/03/20 15:12 BP 118/72 12/03/20 15:12 Pulse Ox 97 12/03/20 15:12 Body Mass Index 31.4 Neuro: Other: He was alert and awake with normal spontaneity of speech fluency comprehension and wake affect. He told me that he was here because he developed chest and abdominal pain. This happened when he went [place] a casino. Prior to that he was supposed to attend a concert that was canceled. He was following commands. Face was symmetrical. There was mild bilateral asked risks. Deep tendon reflexes were absent with equivocal plantars. Results Labs CBC & Chem 7: 12/03/20 06:18 12/03/20 06:18 Labs: Short CBC 12/03/20 Range/Units 06:18 WBC 10.0 (4.8-10.8) X10*3/uL Hgb 9.6 L (14.0-18.0) g/dl Hct 29.9 L (42-52) % Plt Count 319 D (160-400) X10*3/uL BMP 11/30/20 12/03/20 14:15 06:18 Sodium 136 138 Potassium 4.7 4.1 Chloride 103 103 Carbon Dioxide 27 28 BUN 25 H 19 H Creatinine 0.80 0.82 Calcium 8.7 D 8.6 Cardiac Enzymes 11/30/20 12/03/20 Range/Units 14:15 06:18 Total Creatine Kinase 25 L D 11 L D (38-174) U/L His MRI of brain did not reveal any acute pathology. Mild chronic microvascular disease and [id number] chronic diffuse cerebral atrophy was noted. Microbiology Microbiology Results: Microbiology 11/30/20 16:22 Abscess Intra-abdominal Gram Stain - Final 11/30/20 16:22 Abscess Intra-abdominal Routine Culture - Final Staphylococcus aureus 11/30/20 16:22 Abscess Intra-abdominal Anaerobic Culture - Final 12/02/20 06:30 Blood - Venous Blood Culture - Preliminary No growth after 24 hours. 12/02/20 06:40 Blood - Venous Blood Culture - Preliminary No growth after 24 hours. 11/30/20 14:15 Blood - Venous Blood Culture - Final Staphylococcus aureus 11/30/20 14:15 Blood - Venous Blood Culture - Final Staphylococcus aureus 11/26/20 14:14 Blood - Venous Blood Culture - Final Staphylococcus aureus 11/26/20 14:19 Blood - Venous Blood Culture - Final Staphylococcus aureus 11/23/20 05:36 Blood - Venous Blood Culture - Final Staphylococcus aureus 11/23/20 05:36 Blood - Venous Blood Culture - Final Staphylococcus aureus 11/22/20 01:48 Blood - Venous Blood Culture - Final Staphylococcus aureus 11/22/20 00:40 Blood - Venous Blood Culture - Final Staphylococcus aureus Assessment and Plan (1) Toxic metabolic encephalopathy: Status: Acute His clinical examination was suggestive of encephalopathy. There was no electrolyte etiology though he was positive for Staph areas bacteremia. There were no meningeal signs at this time. One could suspect encephalitis, which might not be obvious without contrast MRI or even with the contrast. If no formal etiology of infection was noted, a lumbar puncture should be considered to evaluate his spinal fluid. Otherwise mainstay of treatment is treatment of infection dictated by his cultures and sensitivity. Procedures Date of Service Date of Service: 12/03/20
--- NOTE | 2020-12-03 16:32 | P.CONCA_ITS ---
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 He has abscess drained. he has persistent MSSA bacteremia and we were asked to assess him for endocarditis. He is saying he has pain on the right side of his abdomen as well as hip. He is also complaining of neck pain. He had a transthoracic echocardiogram which did not show any evidence of vegetation. Review of Systems Review of Systems: Pain in the right hip. Pain in the neck. [facility] Past Medical History Medical History Chronic back pain HTN (hypertension) Surgical History Surgical History History of selective injection of anesthetic agent around lumbar nerve root Social History Social History Household Members: None Housing: Other Housing Other:: room at a boarding house Alcohol intake: current Alcohol intake frequency: holidays/special occasions only Patient Tobacco Use Status: Never used Tobacco Use of substances other than those prescribed or required for medical reasons: No Currently Displaying Signs/Symptoms of Drug Intoxication Withdrawal: No Have you been hit, kicked, punched, or otherwise hurt by someone within the past year? If so, by whom?: No Do you feel safe in your current relationship?: No Current Relationship Is there a partner from a previous relationship who is making you feel unsafe now?: No Are you made to feel afraid or neglected: No Advance Directives: No Advance Directives Information Provided: Yes Do you have thoughts of harming others: None Do you have a plan to hurt others: No Plan Recently lost weight without trying: No Nutrition Risks: No Nutritional Risk Current occupational status: retired Meds Allergies Allergy/AdvReac Type Severity Reaction Status Date / Time oxycodone AdvReac Itching Verified 11/22/20 00:30 Active Medications: Current Medications Generic Name Dose Route Start Last Admin Trade Name Freq PRN Reason Stop Dose Admin Acetaminophen 650 mg 11/24/20 18:00 12/03/20 12:25 Acetaminophen 325 Mg Tablet PO 650 mg Q6H AIDAN Administration Amlodipine Besylate 10 mg 12/01/20 09:00 12/03/20 08:43 Amlodipine Besylate 5 Mg Tablet PO 10 mg DAILY AIDAN Administration Protocol Atorvastatin Calcium 20 mg 11/22/20 21:00 12/02/20 21:53 Atorvastatin Calcium 20 Mg Tablet PO 20 mg BEDTIME AIDAN Administration Cyclobenzaprine HCl 5 mg 11/25/20 10:30 12/03/20 15:18 Cyclobenzaprine Hcl 5 Mg Tablet PO 5 mg TID AIDAN Administration Docusate Sodium 100 mg 11/28/20 10:00 12/03/20 08:43 Docusate Sodium 100 Mg Capsule PO 100 mg BID AIDAN Administration Gabapentin 200 mg 11/27/20 21:00 12/03/20 08:43 Gabapentin 100 Mg Capsule PO 200 mg BID AIDAN Administration Heparin Sodium (Porcine) 5,000 unit 11/22/20 05:00 12/03/20 12:26 Heparin Sodium,Porcine 5,000 Unit/Ml Vial SUBCUT 5,000 unit Q8H AIDAN Administration Hydromorphone HCl 0.5 mg 12/03/20 09:36 12/03/20 12:26 Hydromorphone Hcl 0.5 Mg/0.5 Ml Syringe IVPUSH 0.5 mg Q4H PRN Administration severe pain Protocol Lamotrigine 25 mg 11/29/20 21:00 12/02/20 21:54 Lamotrigine 25 Mg Tablet PO 25 mg BEDTIME AIDAN Administration Lidocaine 1 patch 12/02/20 15:45 12/03/20 08:44 Lidocaine 4 % Patch Adh..Patch TRANSDERMA 1 patch DAILY AIDAN Administration Protocol Metoprolol Tartrate 50 mg 11/25/20 09:00 12/03/20 08:44 Metoprolol Tartrate 50 Mg Tablet PO 50 mg BID AIDAN Administration Protocol Mineral Oil 133 ml 11/23/20 08:23 11/23/20 11:24 Mineral Oil Enema 133 Ml Enema [place] 133 ml ONCE PRN Administration constipation Nystatin 1 appl 11/25/20 10:30 12/03/20 08:44 Nystatin Powder 15 Gm Bottle TOPICAL 1 appl BID AIDAN Administration Protocol Polyethylene Glycol 17 gm 11/24/20 14:30 12/03/20 08:43 Polyethylene Glycol 3350 17 Gm Powd.Pack PO 17 gm DAILY AIDAN Administration Senna 17.2 mg 11/22/20 03:35 Sennosides 8.6 Mg Tablet PO BEDTIME PRN Constipation Sodium Chloride 3 ml 11/22/20 08:00 12/03/20 15:18 0.9 % Sodium Chloride Flush 3 Ml Syringe IVFLUSH 3 ml QSHIFT AIDAN Administration Temazepam 15 mg 12/02/20 15:36 Temazepam 15 Mg Capsule PO BEDTIME PRN insomnia Home Medications Medication Instructions Recorded Confirmed Last Taken Type amlodipine 5 mg tablet 1 tab PO DAILY 11/22/20 11/22/20 11/21/20 History atorvastatin 20 mg tablet 1 tab PO BEDTIME 11/22/20 11/22/20 11/21/20 History bupropion HCl 150 mg 24 hr tablet, 1 tab PO QAM 11/22/20 11/22/20 11/21/20 History extended release gabapentin 300 mg capsule mg PO 11/22/20 11/21/20 History hydrochlorothiazide 25 mg tablet 1 tab PO DAILY 11/22/20 11/22/20 11/21/20 History lisinopril 10 mg tablet 1 tab PO DAILY 11/22/20 11/22/20 11/21/20 History Physical Exam Vital Signs: Vital Signs: Last Vital Signs Temp 100 F 12/03/20 15:12 Pulse 84 12/03/20 15:12 Resp 18 12/03/20 15:12 BP 118/72 12/03/20 15:12 Pulse Ox 97 12/03/20 15:12 Body Mass Index 31.4 GENERAL APPEARANCE: in no acute distress, pleasant. NECK: no carotid bruit, no jugular venous distention. SKIN: no suspicious lesions, warm and dry. HEART: no murmurs, regular rate and rhythm. LUNGS: clear to auscultation bilaterally. ABDOMEN: soft, nontender. EXTREMITIES: no edema. PERIPHERAL PULSES: equal. NEUROLOGIC: No gross deficits, AAO X 3 Results Labs and Meds Result diagrams: 12/03/20 06:18 12/03/20 06:18 Lab results: Laboratory Results - last 24 hr 11/30/20 12/03/20 12/03/20 14:15 06:18 06:18 WBC 10.0 RBC 3.03 L Hgb 9.6 L Hct 29.9 L MCV 98.7 H MCH 31.7 MCHC 32.1 RDW 13.2 Plt Count 319 D MPV 9.1 L Absolute Nucleated RBC 0.000 Nucleated RBC % (auto) 0.0 Sodium 136 138 Potassium 4.7 4.1 Chloride 103 103 Carbon Dioxide 27 28 Anion Gap 11 L 11 L BUN 25 H 19 H Creatinine 0.80 0.82 Estim Creat Clear Calc 86.9 84.8 Estimated GFR > 60 > 60 Random Glucose 82 87 Calcium 8.7 D 8.6 Total Creatine Kinase 25 L D 11 L D C-Reactive Protein 7.78 H Assessment and Plan (1) Staphylococcus aureus bacteremia: Status: Acute Pleasant 70-year-old gentleman with 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 He is on antibiotics and the abscess was drained. We have been asked to do a EMILY on him to rule out endocarditis. Interestingly his last set of blood cultures is negative at this point. If his blood cultures continue to be negative with then I think his bacteremia is already clearing and we do not need to pursue a EMILY. On the other hand if his cultures are positive then I would consider a EMILY. Thank you for allowing me to participate in the care of your patient. Please feel free to contact me if you have any questions. Procedures Date of Service Date of Service: 12/03/20
[2020-12-03] MEDS: lamoTRIgine 25 MG TABLET PO (21:09)
[2020-12-03] MEDS: Atorvastatin Calcium 20 MG TABLET PO (21:09)
[2020-12-04] VITALS (18 sets, daily range): BP systolic 91–156; BP diastolic 41–82; PULSE 63–95; RESP 14–18; TEMP 36.4–37.3; O2SAT 94–97
[2020-12-04] MEDS: Heparin Sodium,Porcine 5,000 UNIT/ML VIAL 5000 UNIT SUBCUT ×3 (05:16→22:47)
[2020-12-04] MEDS: Acetaminophen 325 MG TABLET 650 MG PO ×3 (05:17→18:24)
[2020-12-04] MEDS: HYDROmorphone HCl 0.5 MG/0.5 ML SYRINGE IVPUSH (05:21)
--- NOTE | 2020-12-04 08:47 | HO.PM.IMPN ---
Subjective Subjective Date of Service: 12/04/20 Interval History: NPO for EMILY BCx 12/02 turning positive for GPCs Neck pain improved Review of Systems Review of Systems: Yes all other systems are reviewed and are negative Physical Exam Vital Signs: Vital Signs: Last Vital Signs Temp 97.9 F 12/04/20 07:52 Pulse 76 12/04/20 07:52 Resp 17 12/04/20 07:52 BP 144/82 H 12/04/20 07:52 Pulse Ox 96 12/04/20 07:52 Body Mass Index 31.4 Gen: in no acute distress HEENT: sclera anicteric, moist mucus membranes Neck: supple Lungs: clear to auscultation bilaterally Heart: regular rate and rhythm, no murmurs Abd: soft, non-tender, non-distended Ext: no edema Skin: warm/well-perfused, L elbow healed ulcer Neuro: alert and oriented x3, normal strength in legs bilaterally Psych: appropriate affect Objective Data Active Medications Acetaminophen (Acetaminophen 325 Mg Tablet) 650 mg PO Q6H [facility] Last Admin: 12/04/20 05:17 Dose: 650 mg Documented by: YUNI Amlodipine Besylate (Amlodipine Besylate 5 Mg Tablet) 10 mg PO DAILY [facility], [facility]; Protocol Last Admin: 12/03/20 08:43 Dose: 10 mg Documented by: LAMONTE Atorvastatin Calcium (Atorvastatin Calcium 20 Mg Tablet) 20 mg PO BEDTIME [facility] Last Admin: 12/03/20 21:09 Dose: 20 mg Documented by: YUNI Cyclobenzaprine HCl (Cyclobenzaprine Hcl 5 Mg Tablet) 5 mg PO TID [facility] Last Admin: 12/03/20 21:09 Dose: 5 mg Documented by: YUNI Docusate Sodium (Docusate Sodium 100 Mg Capsule) 100 mg PO BID [facility] Last Admin: 12/03/20 21:09 Dose: 100 mg Documented by: YUNI Gabapentin (Gabapentin 100 Mg Capsule) 200 mg PO BID [facility] Last Admin: 12/03/20 21:09 Dose: 200 mg Documented by: YUNI Heparin Sodium (Porcine) (Heparin Sodium,Porcine 5,000 Unit/Ml Vial) 5,000 unit SUBCUT Q8H [facility] Last Admin: 12/04/20 05:16 Dose: 5,000 unit Documented by: YUNI Hydromorphone HCl (Hydromorphone Hcl 0.5 Mg/0.5 Ml Syringe) 0.5 mg IVPUSH Q4H PRN; Protocol PRN Reason: severe pain Last Admin: 12/04/20 05:21 Dose: 0.5 mg Documented by: YUNI Lamotrigine (Lamotrigine 25 Mg Tablet) 25 mg PO BEDTIME [facility] Last Admin: 12/03/20 21:09 Dose: 25 mg Documented by: YUNI Lidocaine (Lidocaine 4 % Patch Adh..Patch) 1 patch TRANSDERMA DAILY [facility], [facility]; Protocol Last Admin: 12/03/20 08:44 Dose: 1 patch Documented by: LAMONTE Metoprolol Tartrate (Metoprolol Tartrate 50 Mg Tablet) 50 mg PO BID [facility]; Protocol Last Admin: 12/03/20 21:23 Dose: 50 mg Documented by: YUNI Mineral Oil (Mineral Oil Enema 133 Ml Enema) 133 ml [place] ONCE PRN PRN Reason: constipation Last Admin: 11/23/20 11:24 Dose: 133 ml Documented by: YOGI Nystatin (Nystatin Powder 15 Gm Bottle) 1 appl TOPICAL BID [facility], [facility]; Protocol Last Admin: 12/03/20 21:32 Dose: 1 appl Documented by: YUNI Polyethylene Glycol (Polyethylene Glycol 3350 17 Gm Powd.Pack) 17 gm PO DAILY [facility] Last Admin: 12/03/20 08:43 Dose: 17 gm Documented by: LAMONTE Senna (Sennosides 8.6 Mg Tablet) 17.2 mg PO BEDTIME PRN PRN Reason: Constipation Sodium Chloride (0.9 % Sodium Chloride Flush 3 Ml Syringe) 3 ml IVFLUSH QSHIFT [facility] Last Admin: 12/03/20 21:24 Dose: 3 ml Documented by: YUNI Temazepam (Temazepam 15 Mg Capsule) 15 mg PO BEDTIME PRN PRN Reason: insomnia Labs CBC & Chem 7: 12/03/20 06:18 12/03/20 06:18 Labs: Laboratory Results - last 24 hr 12/03/20 06:18 C-Reactive Protein 7.78 H Microbiology Microbiology Results: Microbiology 12/02/20 06:40 Blood Culture - Preliminary Blood - Venous 11/30/20 16:22 Gram Stain - Final Abscess Intra-abdominal Routine Culture - Final Staphylococcus aureus Anaerobic Culture - Final 12/02/20 06:30 Blood Culture - Preliminary Blood - Venous No growth after 24 hours. 11/30/20 14:15 Blood Culture - Final Blood - Venous Staphylococcus aureus 11/30/20 14:15 Blood Culture - Final Blood - Venous Staphylococcus aureus Assessment and Plan (1) Hypokalemia: Status: Acute (2) Chronic back pain: Status: Acute (3) Neck pain: Status: Acute (4) HTN (hypertension): Status: Acute (5) Acute respiratory failure with hypoxia: Status: Acute (6) Staphylococcus aureus bacteremia: Status: Acute (7) DIEGO (acute kidney injury): Status: Acute Assessment and Plan: hospital d#13 70yo M presented with severe back/neck pain, found to have persistent MSSA bacteremia with psoas abscess # psoas abscess # MSSA bacteremia, persistent - ID following - CT-guided aspiration 11/30 growing MSSA - continue daptomycin [had rash with nafcillin] d#9 but will need 42d via PICC from 1st negative BCx, still awaiting clearance and BCx from 12/02 positive - TTE no vegetation 11/24; EMILY today given persistent bacteremia # neck pain - CT C-spine negative cervical epidural abscess - lidocaine patch, prn hydromorphone # encephalopathy, septic - no emboli on MRI. Neuro consulted. treat bacteremia as above. # acute hypoxic resp failure - resolved, was likely due to atelectasis # mood disorder/hypomania - continue lamotrigine. Psych re-consulted yesterday # constipation - bowel regimen # insomnia - temazepam prn # DIEGO - resolved, was likely due to excess NSAID use [avoid]; lisinopril, furosemide, and HCTZ on hold # HTN - amlodipine + metoprolol; lisinopril, furosemide, and HCTZ on hold # hypoK - repleted # VTE ppx - UFH # dispo - will need STR once bloodstream clears Quality Stroke Does the patient have a stroke diagnosis?: No VTE Prior VTE?: No VTE Risk Level:: Medical - moderate - high VTE Device Contraindication: Treatment Not Indicated VTE Drug Contraindication: N/A - Med Ordered
[2020-12-04] MEDS: Gabapentin 100 MG CAPSULE 200 MG PO ×2 (10:24→22:46)
[2020-12-04] MEDS: amLODIPine Besylate 5 MG TABLET 10 MG PO (10:24)
[2020-12-04] MEDS: Cyclobenzaprine HCl 5 MG TABLET PO ×2 (10:24→22:46)
[2020-12-04] MEDS: Metoprolol Tartrate 50 MG TABLET PO ×2 (10:24→22:47)
[2020-12-04] MEDS: Docusate Sodium 100 MG CAPSULE PO ×2 (10:25→22:46)
[2020-12-04] MEDS: 0.9 % Sodium Chloride Flush 3 ML SYRINGE IVFLUSH ×2 (10:25→22:51)
[2020-12-04] MEDS: Lidocaine 4 % Patch ADH..PATCH 1 PATCH TRANSDERMA (10:25)
[2020-12-04] MEDS: Nystatin Powder 15 GM BOTTLE 1 APPL TOPICAL ×2 (10:26→22:51)
--- NOTE | 2020-12-04 10:33 | PM.PNCARD ---
Subjective Subjective Date of Service: 12/04/20 Physical Exam Vital Signs: Last Vital Signs Temp 97.9 F 12/04/20 07:52 Pulse 76 12/04/20 10:24 Resp 17 12/04/20 07:52 BP 144/82 H 12/04/20 10:24 Pulse Ox 96 12/04/20 07:52 Body Mass Index 31.4 Results Labs and Meds Result diagrams: 12/03/20 06:18 12/03/20 06:18 Imaging Radiologist's impression: Impressions Cervical Spine CT 12/03/20 12:00 IMPRESSION: 1. No acute abnormality. No evidence of epidural abscess. 2. Degenerative spondylosis of the cervical spine. Progress Note: A&P Fall Risk Details Current Medications: Current Medications Acetaminophen (Acetaminophen 325 Mg Tablet) 650 mg PO Q6H [facility] Last Admin: 12/04/20 10:24 Dose: 650 mg Documented by: Amlodipine Besylate (Amlodipine Besylate 5 Mg Tablet) 10 mg PO DAILY [facility]; Protocol Last Admin: 12/04/20 10:24 Dose: 10 mg Documented by: Cyclobenzaprine HCl (Cyclobenzaprine Hcl 5 Mg Tablet) 5 mg PO TID [facility] Last Admin: 12/04/20 10:24 Dose: 5 mg Documented by: Docusate Sodium (Docusate Sodium 100 Mg Capsule) 100 mg PO BID [facility] Last Admin: 12/04/20 10:25 Dose: 100 mg Documented by: Gabapentin (Gabapentin 100 Mg Capsule) 200 mg PO BID [facility] Last Admin: 12/04/20 10:24 Dose: 200 mg Documented by: Heparin Sodium (Porcine) (Heparin Sodium,Porcine 5,000 Unit/Ml Vial) 5,000 unit SUBCUT Q8H [facility] Last Admin: 12/04/20 05:16 Dose: 5,000 unit Documented by: Hydromorphone HCl (Hydromorphone Hcl 0.5 Mg/0.5 Ml Syringe) 0.5 mg IVPUSH Q4H PRN; Protocol PRN Reason: severe pain Last Admin: 12/04/20 05:21 Dose: 0.5 mg Documented by: Daptomycin 707.2 mg/ Sodium (Chloride) 64.144 mls @ 100 mls/hr IV Q24H [facility] Lamotrigine (Lamotrigine 25 Mg Tablet) 25 mg PO BEDTIME [facility] Last Admin: 12/03/20 21:09 Dose: 25 mg Documented by: Lidocaine (Lidocaine 4 % Patch Adh..Patch) 1 patch TRANSDERMA DAILY AIDAN; Protocol Last Admin: 12/04/20 10:25 Dose: 1 patch Documented by: Metoprolol Tartrate (Metoprolol Tartrate 50 Mg Tablet) 50 mg PO BID AIDAN; Protocol Last Admin: 12/04/20 10:24 Dose: 50 mg Documented by: Mineral Oil (Mineral Oil Enema 133 Ml Enema) 133 ml [place] ONCE PRN PRN Reason: constipation Last Admin: 11/23/20 11:24 Dose: 133 ml Documented by: Nystatin (Nystatin Powder 15 Gm Bottle) 1 appl TOPICAL BID AIDAN; Protocol Last Admin: 12/04/20 10:26 Dose: 1 appl Documented by: Polyethylene Glycol (Polyethylene Glycol 3350 17 Gm Powd.Pack) 17 gm PO DAILY [facility] Last Admin: 12/04/20 10:26 Dose: Not Given Documented by: Senna (Sennosides 8.6 Mg Tablet) 17.2 mg PO BEDTIME PRN PRN Reason: Constipation Sodium Chloride (0.9 % Sodium Chloride Flush 3 Ml Syringe) 3 ml IVFLUSH QSHIFT [facility] Last Admin: 12/04/20 10:25 Dose: 3 ml Documented by: Temazepam (Temazepam 15 Mg Capsule) 15 mg PO BEDTIME PRN PRN Reason: insomnia Time Spent With Patient Time: Total time spent is greater than 50% in coordination of care (as documented) at patient's floor/unit and/or counseling patient: Progress Note: Quality Stroke Does the patient have a stroke diagnosis?: No
--- NOTE | 2020-12-04 11:26 | PM.PNCARD ---
Subjective Subjective Date of Service: 12/04/20 <YEYO Gillis - Last Filed: 12/04/20 11:40> 12/04/20 <Ry Novak MD - Last Filed: 12/04/20 12:09> Principal diagnosis: Bacteremia <YEYO Gillis - Last Filed: 12/04/20 11:40> Interval history: Cardiology follow up for bacteremia, need for EMILY. Seen at 1000. Today he reports that he is feeling better overall. He did have some chills this am. No fever. No CP, sob, palpitation, dizziness, edema. Neck is still bothering him. Sitting up in chair. Did not eat breakfast. <YEYO Gillis - Last Filed: 12/04/20 11:40> Review of Systems Review of Systems as above <YEYO Gillis - Last Filed: 12/04/20 11:40> Yes all other systems are reviewed and are negative <YEYO Gillis - Last Filed: 12/04/20 11:40> Physical Exam Vital Signs: Last Vital Signs Temp 97.9 F 12/04/20 07:52 Pulse 76 12/04/20 10:59 Resp 17 12/04/20 07:52 BP 144/82 H 12/04/20 10:59 Pulse Ox 96 12/04/20 07:52 Body Mass Index 31.4 <YEYO Gillis - Last Filed: 12/04/20 11:40> Const General: cooperative, no acute distress, alert and awake <YEYO Gillis - Last Filed: 12/04/20 11:40> Orientation/consciousness: patient oriented x3 <YEYO Gillis - Last Filed: 12/04/20 11:40> Neck Neck: Yes normal visual inspection and Yes no JVD <YEYO Gillis Last Filed: 12/04/20 11:40> Resp Effort & Inspection: normal respiratory effort, able to speak in complete sentences and not labored <YEYO Gilils - Last Filed: 12/04/20 11:40> Auscultation: clear to auscultation bilaterally, no rales, no rhonchi and no wheezes <YEYO Gillis - Last Filed: 12/04/20 11:40> Cardio Palpation: normal PMI <YEYO Gillis - Last Filed: 12/04/20 11:40> Rate: regular rate <YEYO Gillis - Last Filed: 12/04/20 11:40> Rhythm: regular rhythm <YEYO Gillis - Last Filed: 12/04/20 11:40> Heart sounds: S1 normal heart sound present and S2 normal heart sound present <YEYO Gillis - Last Filed: 12/04/20 11:40> Peripheral pulses: Peripheral pulses 2+ throughout <YEYO Gillis - Last Filed: 12/04/20 11:40> Neuro General: patient oriented x3 <YEYO Gillis - Last Filed: 12/04/20 11:40> Extrem General: Yes normal to inspection and No edema <YEYO Gillis - Last Filed: 12/04/20 11:40> Results Labs and Meds Result diagrams: : 12/03/20 06:18 12/03/20 06:18 <YEYO Gillis - Last Filed: 12/04/20 11:40> Imaging Radiologist's impression: Impressions Cervical Spine CT 12/03/20 12:00 IMPRESSION: 1. No acute abnormality. No evidence of epidural abscess. 2. Degenerative spondylosis of the cervical spine. <YEYO Gillis Last Filed: 12/04/20 11:40> Progress Note: A&P Assessment and plan (1) Preop cardiovascular exam: Status: Acute <YEYO Gillis Last Filed: 12/04/20 11:40> Assessment and Plan: Pt admit with psoas abcess, MSSA bacetermia. He has been managed with IV antibiotics.Echo done on 11/24 showed normal EF, no vegetation on valves. Repeat blood cultures done on 12/02 still showing gram + cocci. He needs to have a EMILY to eval for bacterial endocarditis. He has no cardiac hx and no report of anginal type symptoms. Vital stable. Procedure, risks reviewed with him. He is agreeable to proceed. Has been NPO after midnight. Informed to not eat or drink until instructed. Arrangements have been made for a [address] Novak. <YEYO Gillis - Last Filed: 12/04/20 11:40> (2) Staphylococcus aureus bacteremia: Status: Acute <YEYO Gillis - Last Filed: 12/04/20 11:40> Assessment and Plan: as above <YEYO Gillis - Last Filed: 12/04/20 11:40> Fall Risk Details Current Medications: Current Medications Acetaminophen (Acetaminophen 325 Mg Tablet) 650 mg PO Q6H [facility] Last Admin: 12/04/20 10:24 Dose: 650 mg Documented by: Amlodipine Besylate (Amlodipine Besylate 5 Mg Tablet) 10 mg PO DAILY [facility]; Protocol Last Admin: 12/04/20 10:24 Dose: 10 mg Documented by: Cyclobenzaprine HCl (Cyclobenzaprine Hcl 5 Mg Tablet) 5 mg PO TID [facility] Last Admin: 12/04/20 10:24 Dose: 5 mg Documented by: Docusate Sodium (Docusate Sodium 100 Mg Capsule) 100 mg PO BID [facility] Last Admin: 12/04/20 10:25 Dose: 100 mg Documented by: Gabapentin (Gabapentin 100 Mg Capsule) 200 mg PO BID [facility] Last Admin: 12/04/20 10:24 Dose: 200 mg Documented by: Heparin Sodium (Porcine) (Heparin Sodium,Porcine 5,000 Unit/Ml Vial) 5,000 unit SUBCUT Q8H [facility] Last Admin: 12/04/20 05:16 Dose: 5,000 unit Documented by: Hydromorphone HCl (Hydromorphone Hcl 0.5 Mg/0.5 Ml Syringe) 0.5 mg IVPUSH Q4H PRN; Protocol PRN Reason: severe pain Last Admin: 12/04/20 05:21 Dose: 0.5 mg Documented by: Daptomycin 700 mg/ Sodium (Chloride) 64 mls @ 99.783 mls/hr IV Q24H [facility] Lamotrigine (Lamotrigine 25 Mg Tablet) 25 mg PO BEDTIME [facility] Last Admin: 12/03/20 21:09 Dose: 25 mg Documented by: Lidocaine (Lidocaine 4 % Patch Adh..Patch) 1 patch TRANSDERMA DAILY [facility]; Protocol Last Admin: 12/04/20 10:25 Dose: 1 patch Documented by: Metoprolol Tartrate (Metoprolol Tartrate 50 Mg Tablet) 50 mg PO BID [facility]; Protocol Last Admin: 12/04/20 10:24 Dose: 50 mg Documented by: Mineral Oil (Mineral Oil Enema 133 Ml Enema) 133 ml [place] ONCE PRN PRN Reason: constipation Last Admin: 11/23/20 11:24 Dose: 133 ml Documented by: Nystatin (Nystatin Powder 15 Gm Bottle) 1 appl TOPICAL BID [facility]; Protocol Last Admin: 12/04/20 10:26 Dose: 1 appl Documented by: Polyethylene Glycol (Polyethylene Glycol 3350 17 Gm Powd.Pack) 17 gm PO DAILY [facility] Last Admin: 12/04/20 10:26 Dose: Not Given Documented by: Senna (Sennosides 8.6 Mg Tablet) 17.2 mg PO BEDTIME PRN PRN Reason: Constipation Sodium Chloride (0.9 % Sodium Chloride Flush 3 Ml Syringe) 3 ml IVFLUSH QSHIFT [facility] Last Admin: 12/04/20 10:25 Dose: 3 ml Documented by: Temazepam (Temazepam 15 Mg Capsule) 15 mg PO BEDTIME PRN PRN Reason: insomnia <YEYO Gillis - Last Filed: 12/04/20 11:40> Time Spent With Patient Time: Total time spent is greater than 50% in coordination of care (as documented) at patient's floor/unit and/or counseling patient: <YEYO Gillis - Last Filed: 12/04/20 11:40> Time with patient: 15 - 24 minutes <YEYO Gillis - Last Filed: 12/04/20 11:40> Progress Note: Quality Stroke Does the patient have a stroke diagnosis?: No <YEYO Gillis - Last Filed: 12/04/20 11:40> Procedures Date of Service Date of Service: 12/04/20 <YEYO Gillis - Last Filed: 12/04/20 11:40>
[2020-12-04] MEDS: DAPTOmycin 700 MG in 0.9 % Sodium Chloride 50 ML 99.78 MG IV (12:28)
--- NOTE | 2020-12-04 12:53 | MHC.CM.PN ---
per multidis rounds pt is bactremic therefore not ready for dc at this time
--- NOTE | 2020-12-04 13:31 | P.CONAN_ITS ---
FORMERLY [facility] Active Problems Active Problems: All Active Problems (Updated 12/04/20 @ 11:33 by Heather adler, [employer]) Preop cardiovascular exam (Acute) Toxic metabolic encephalopathy (Acute) Bipolar disorder with depression (Acute) Abdominal pain (Acute) Chest pain (Acute) Hypokalemia (Acute) Chronic back pain (Acute) Neck pain (Acute) HTN (hypertension) (Acute) Constipation (Acute) Atelectasis (Acute) Acute respiratory failure with hypoxia (Acute) Staphylococcus aureus bacteremia (Acute) DIEGO (acute kidney injury) (Acute) Sepsis (Acute) Past Medical History Medical History Chronic back pain HTN (hypertension) Family History Family history of problems with anesthesia: No Surgical History Surgical History History of selective injection of anesthetic agent around lumbar nerve root History of Problems with Anesthesia: No Social History Social History Household Members: None Housing: Other Housing Other:: room at a boarding house Alcohol intake: current Alcohol intake frequency: holidays/special occasions only Patient Tobacco Use Status: Never used Tobacco Use of substances other than those prescribed or required for medical reasons: No Currently Displaying Signs/Symptoms of Drug Intoxication Withdrawal: No Have you been hit, kicked, punched, or otherwise hurt by someone within the past year? If so, by whom?: No Do you feel safe in your current relationship?: No Current Relationship Is there a partner from a previous relationship who is making you feel unsafe now?: No Are you made to feel afraid or neglected: No Advance Directives: No Advance Directives Information Provided: Yes Do you have thoughts of harming others: None Do you have a plan to hurt others: No Plan Recently lost weight without trying: No Nutrition Risks: No Nutritional Risk Current occupational status: retired Meds Allergies Allergy/AdvReac Type Severity Reaction Status Date / Time oxycodone AdvReac Itching Verified 11/22/20 00:30 Active Medications: Current Medications Acetaminophen (Acetaminophen 325 Mg Tablet) 650 mg PO Q6H AIDAN Last Admin: 12/04/20 10:24 Dose: 650 mg Documented by: Amlodipine Besylate (Amlodipine Besylate 5 Mg Tablet) 10 mg PO DAILY [facility]; Protocol Last Admin: 12/04/20 10:24 Dose: 10 mg Documented by: Cyclobenzaprine HCl (Cyclobenzaprine Hcl 5 Mg Tablet) 5 mg PO TID [facility] Last Admin: 12/04/20 10:24 Dose: 5 mg Documented by: Docusate Sodium (Docusate Sodium 100 Mg Capsule) 100 mg PO BID AIDAN Last Admin: 12/04/20 10:25 Dose: 100 mg Documented by: Gabapentin (Gabapentin 100 Mg Capsule) 200 mg PO BID AIDAN Last Admin: 12/04/20 10:24 Dose: 200 mg Documented by: Heparin Sodium (Porcine) (Heparin Sodium,Porcine 5,000 Unit/Ml Vial) 5,000 unit SUBCUT Q8H AIDAN Last Admin: 12/04/20 12:28 Dose: 5,000 unit Documented by: Hydromorphone HCl (Hydromorphone Hcl 0.5 Mg/0.5 Ml Syringe) 0.5 mg IVPUSH Q4H PRN; Protocol PRN Reason: severe pain Last Admin: 12/04/20 05:21 Dose: 0.5 mg Documented by: Daptomycin 700 mg/ Sodium (Chloride) 64 mls @ 99.783 mls/hr IV Q24H AIDAN Last Admin: 12/04/20 12:28 Dose: 99.78 mls/hr Documented by: Lamotrigine (Lamotrigine 25 Mg Tablet) 25 mg PO BEDTIME [facility] Last Admin: 12/03/20 21:09 Dose: 25 mg Documented by: Lidocaine (Lidocaine 4 % Patch Adh..Patch) 1 patch TRANSDERMA DAILY [facility]AN; Protocol Last Admin: 12/04/20 10:25 Dose: 1 patch Documented by: Metoprolol Tartrate (Metoprolol Tartrate 50 Mg Tablet) 50 mg PO BID AIDAN; Protocol Last Admin: 12/04/20 10:24 Dose: 50 mg Documented by: Mineral Oil (Mineral Oil Enema 133 Ml Enema) 133 ml VT ONCE PRN PRN Reason: constipation Last Admin: 11/23/20 11:24 Dose: 133 ml Documented by: Nystatin (Nystatin Powder 15 Gm Bottle) 1 appl TOPICAL BID AIDAN; Protocol Last Admin: 12/04/20 10:26 Dose: 1 appl Documented by: Polyethylene Glycol (Polyethylene Glycol 3350 17 Gm Powd.Pack) 17 gm PO DAILY [facility] Last Admin: 12/04/20 10:26 Dose: Not Given Documented by: Senna (Sennosides 8.6 Mg Tablet) 17.2 mg PO BEDTIME PRN PRN Reason: Constipation Sodium Chloride (0.9 % Sodium Chloride Flush 3 Ml Syringe) 3 ml IVFLUSH QSHIFT [facility] Last Admin: 12/04/20 10:25 Dose: 3 ml Documented by: Temazepam (Temazepam 15 Mg Capsule) 15 mg PO BEDTIME PRN PRN Reason: insomnia Home Medications Medication Instructions Recorded Confirmed Last Taken Type amlodipine 5 mg tablet 1 tab PO DAILY 11/22/20 11/22/20 11/21/20 History atorvastatin 20 mg tablet 1 tab PO BEDTIME 11/22/20 11/22/20 11/21/20 History bupropion HCl 150 mg 24 hr tablet, 1 tab PO QAM 11/22/20 11/22/20 11/21/20 History extended release gabapentin 300 mg capsule mg PO 11/22/20 11/21/20 History hydrochlorothiazide 25 mg tablet 1 tab PO DAILY 11/22/20 11/22/20 11/21/20 History lisinopril 10 mg tablet 1 tab PO DAILY 11/22/20 11/22/20 11/21/20 History Exam Exam Date and Time: December 04, 2020 133 Height,Weight and Vital Signs: Height 5 ft 6 in Weight 88.4 kg Last Vital Signs Temp 97.5 F 12/04/20 11:53 Pulse 63 12/04/20 11:53 Resp 18 12/04/20 11:53 BP 118/73 12/04/20 11:53 Pulse Ox 96 12/04/20 11:53 Pertinent Lab Results Pertinent Lab Results: Laboratory Tests 11/22/20 11/22/20 11/22/20 00:45 00:45 00:45 WBC 24.5 H RBC 4.10 L Hgb 13.3 L Hct 38.3 L MCV 93.4 MCH 32.4 MCHC 34.7 RDW 12.2 Plt Count 193 MPV 9.8 Immature Gran % (Auto) 1.0 H Neut % (Auto) 90.1 H Lymph % (Auto) 1.8 L [place] % (Auto) 7.0 Eos % (Auto) 0.0 Baso % (Auto) 0.1 Lymph # (Auto) 0.5 L [place] # (Auto) 1.7 H Eos # (Auto) 0.0 Baso # (Auto) 0.0 Abs Immat Gran (auto) 0.24 H Absolute Neuts (auto) 22.0 H Absolute Nucleated RBC 0.000 Nucleated RBC % (auto) 0.0 Neutrophils % (Manual) Band Neutrophils % Monocytes % (Manual) Abs Neuts (Manual) Monocytes # (Manual) Platelet Estimate Plt Morphology Comment RBC Morphology Tear Drop Cells Ovalocytes [place] Cells ESR PT INR APTT D-Dimer Sodium 140 Potassium 3.6 Chloride 102 Carbon Dioxide 26 Anion Gap 16 BUN 49 H Creatinine 2.16 H Estim Creat Clear Calc 32.0 Estimated GFR 30 Random Glucose 154 H Fasting Glucose Lactic Acid Calcium 9.7 Magnesium Total Bilirubin 1.1 H Direct Bilirubin AST 24 ALT 46 H Alkaline Phosphatase 112 Total Creatine Kinase 58 Troponin I High Sens 5.6 C-Reactive Protein 19.30 H Total Protein 6.5 Albumin 3.8 Lipase 9 Urine Color Urine Appearance Urine pH Ur Specific [place] Urine Protein Urine Glucose (UA) Urine Ketones Urine Blood Urine Nitrite Ur Leukocyte Esterase Urine RBC Urine WBC Ur Squamous Epith Cells Urine Bacteria Hyaline Casts Urine Mucus Vancomycin Trough COVID-19 (CADE) COVID-19 Clin Com 11/22/20 11/22/20 11/22/20 00:45 01:00 01:48 WBC RBC Hgb Hct MCV MCH MCHC RDW Plt Count MPV Immature Gran % (Auto) Neut % (Auto) Lymph % (Auto) [place] % (Auto) Eos % (Auto) Baso % (Auto) Lymph # (Auto) [place] # (Auto) Eos # (Auto) Baso # (Auto) Abs Immat Gran (auto) Absolute Neuts (auto) Absolute Nucleated RBC Nucleated RBC % (auto) Neutrophils % (Manual) Band Neutrophils % Monocytes % (Manual) Abs Neuts (Manual) Monocytes # (Manual) Platelet Estimate Plt Morphology Comment RBC Morphology Tear Drop Cells Ovalocytes [place] Cells ESR 53 H PT INR APTT D-Dimer Sodium Potassium Chloride Carbon Dioxide Anion Gap BUN Creatinine Estim Creat Clear Calc Estimated GFR Random Glucose Fasting Glucose Lactic Acid 1.5 Calcium Magnesium Total Bilirubin Direct Bilirubin AST ALT Alkaline Phosphatase Total Creatine Kinase Troponin I High Sens C-Reactive Protein Total Protein Albumin Lipase Urine Color Urine Appearance Urine pH Ur Specific [place] Urine Protein Urine Glucose (UA) Urine Ketones Urine Blood Urine Nitrite Ur Leukocyte Esterase Urine RBC Urine WBC Ur Squamous Epith Cells Urine Bacteria Hyaline Casts Urine Mucus Vancomycin Trough COVID-19 (CADE) Negative COVID-19 Clin Com See Note 11/22/20 11/22/20 11/22/20 02:48 03:54 03:54 WBC RBC Hgb Hct MCV MCH MCHC RDW Plt Count MPV Immature Gran % (Auto) Neut % (Auto) Lymph % (Auto) [place] % (Auto) Eos % (Auto) Baso % (Auto) Lymph # (Auto) [place] # (Auto) Eos # (Auto) Baso # (Auto) Abs Immat Gran (auto) Absolute Neuts (auto) Absolute Nucleated RBC Nucleated RBC % (auto) Neutrophils % (Manual) Band Neutrophils % Monocytes % (Manual) Abs Neuts (Manual) Monocytes # (Manual) Platelet Estimate Plt Morphology Comment RBC Morphology Tear Drop Cells Ovalocytes [place] Cells ESR PT INR APTT D-Dimer 2782 Sodium Potassium Chloride Carbon Dioxide Anion Gap BUN Creatinine Estim Creat Clear Calc Estimated GFR Random Glucose Fasting Glucose Lactic Acid Calcium Magnesium Total Bilirubin Direct Bilirubin AST ALT Alkaline Phosphatase Total Creatine Kinase Troponin I High Sens 4.2 C-Reactive Protein Total Protein Albumin Lipase Urine Color YELLOW Urine Appearance CLEAR Urine pH 6.0 Ur Specific [place] 1.025 Urine Protein 1+ H Urine Glucose (UA) NEG Urine Ketones 5 Urine Blood TRACE Urine Nitrite NEG Ur Leukocyte Esterase NEG Urine RBC 1-4 Urine WBC 5-9 H Ur Squamous Epith Cells 1+ Urine Bacteria 1+ Hyaline Casts 1-4 Urine Mucus 1+ Vancomycin Trough COVID-19 (CADE) COVID-19 Clin Com 11/22/20 11/22/20 11/23/20 05:22 05:22 05:36 WBC 23.6 H 19.9 H RBC 4.06 L 3.83 L Hgb 13.2 L 12.3 L Hct 38.2 L 35.2 L MCV 94.1 91.9 MCH 32.5 32.1 MCHC 34.6 34.9 RDW 12.2 12.1 Plt Count 186 160 MPV 10.1 9.9 Immature Gran % (Auto) Cancelled Neut % (Auto) Cancelled Lymph % (Auto) Cancelled [place] % (Auto) Cancelled Eos % (Auto) Cancelled Baso % (Auto) Cancelled Lymph # (Auto) Cancelled [place] # (Auto) Cancelled Eos # (Auto) Cancelled Baso # (Auto) Cancelled Abs Immat Gran (auto) Cancelled Absolute Neuts (auto) Cancelled Absolute Nucleated RBC 0.000 0.000 Nucleated RBC % (auto) 0.0 0.0 Neutrophils % (Manual) 74 H Band Neutrophils % 25 H Monocytes % (Manual) 1 L Abs Neuts (Manual) 23.4 H Monocytes # (Manual) 0.2 Platelet Estimate NORMAL Plt Morphology Comment NORMAL RBC Morphology NOTED Tear Drop Cells 1+ (0-2) Ovalocytes 1+ (5-14) [place] Cells 1+ (0-2) ESR PT INR APTT D-Dimer Sodium 138 Potassium 3.0 L Chloride 101 Carbon Dioxide 22 Anion Gap 18 BUN 46 H Creatinine 1.77 H Estim Creat Clear Calc 39.2 Estimated GFR 38 Random Glucose 148 H Fasting Glucose Lactic Acid Calcium 9.3 Magnesium Total Bilirubin Direct Bilirubin AST ALT Alkaline Phosphatase Total Creatine Kinase Troponin I High Sens C-Reactive Protein Total Protein Albumin Lipase Urine Color Urine Appearance Urine pH Ur Specific [place] Urine Protein Urine Glucose (UA) Urine Ketones Urine Blood Urine Nitrite Ur Leukocyte Esterase Urine RBC Urine WBC Ur Squamous Epith Cells Urine Bacteria Hyaline Casts Urine Mucus Vancomycin Trough COVID-19 (CADE) COVID-19 Clin Com 11/23/20 11/24/20 11/24/20 05:36 01:06 05:35 WBC 19.5 H RBC 3.67 L Hgb 12.1 L Hct 33.4 L MCV 91.0 MCH 33.0 MCHC 36.2 H RDW 12.1 Plt Count 175 MPV 9.8 Immature Gran % (Auto) Neut % (Auto) Lymph % (Auto) [place] % (Auto) Eos % (Auto) Baso % (Auto) Lymph # (Auto) [place] # (Auto) Eos # (Auto) Baso # (Auto) Abs Immat Gran (auto) Absolute Neuts (auto) Absolute Nucleated RBC 0.000 Nucleated RBC % (auto) 0.0 Neutrophils % (Manual) Band Neutrophils % Monocytes % (Manual) Abs Neuts (Manual) Monocytes # (Manual) Platelet Estimate Plt Morphology Comment RBC Morphology Tear Drop Cells Ovalocytes [place] Cells ESR PT INR APTT D-Dimer Sodium 135 Potassium 3.1 L 2.7 L Chloride 100 Carbon Dioxide 24 Anion Gap 14 BUN 43 H Creatinine 1.00 Estim Creat Clear Calc 69.5 Estimated GFR > 60 Random Glucose Fasting Glucose 124 H Lactic Acid Calcium 9.0 Magnesium 2.0 Total Bilirubin Direct Bilirubin AST ALT Alkaline Phosphatase Total Creatine Kinase Troponin I High Sens C-Reactive Protein Total Protein Albumin Lipase Urine Color Urine Appearance Urine pH Ur Specific [place] Urine Protein Urine Glucose (UA) Urine Ketones Urine Blood Urine Nitrite Ur Leukocyte Esterase Urine RBC Urine WBC Ur Squamous Epith Cells Urine Bacteria Hyaline Casts Urine Mucus Vancomycin Trough COVID-19 (CADE) COVID-19 Clin Com 11/24/20 11/24/20 11/26/20 05:35 13:55 05:26 WBC 11.7 H RBC 3.45 L Hgb 11.1 L Hct 32.1 L MCV 93.0 MCH 32.2 MCHC 34.6 RDW 12.7 Plt Count 170 MPV 9.7 Immature Gran % (Auto) 1.0 H Neut % (Auto) 83.2 H Lymph % (Auto) 7.5 L [place] % (Auto) 6.8 Eos % (Auto) 1.2 Baso % (Auto) 0.3 Lymph # (Auto) 0.9 L [place] # (Auto) 0.8 Eos # (Auto) 0.1 Baso # (Auto) 0.0 Abs Immat Gran (auto) 0.12 H Absolute Neuts (auto) 9.7 H Absolute Nucleated RBC 0.000 Nucleated RBC % (auto) 0.0 Neutrophils % (Manual) Band Neutrophils % Monocytes % (Manual) Abs Neuts (Manual) Monocytes # (Manual) Platelet Estimate Plt Morphology Comment RBC Morphology Tear Drop Cells Ovalocytes [place] Cells ESR PT INR APTT D-Dimer Sodium 139 Potassium 3.1 L Chloride 105 Carbon Dioxide 25 Anion Gap 12 BUN 42 H Creatinine 0.80 Estim Creat Clear Calc 86.9 Estimated GFR > 60 Random Glucose Fasting Glucose 122 H Lactic Acid Calcium 9.0 Magnesium Total Bilirubin Direct Bilirubin AST ALT Alkaline Phosphatase Total Creatine Kinase Troponin I High Sens C-Reactive Protein Total Protein Albumin Lipase Urine Color Urine Appearance Urine pH Ur Specific [place] Urine Protein Urine Glucose (UA) Urine Ketones Urine Blood Urine Nitrite Ur Leukocyte Esterase Urine RBC Urine WBC Ur Squamous Epith Cells Urine Bacteria Hyaline Casts Urine Mucus Vancomycin Trough 4.6 L COVID-19 (CADE) COVID-19 Clin Com 11/26/20 11/27/20 11/27/20 05:26 03:26 05:58 WBC RBC Hgb Hct MCV MCH MCHC RDW Plt Count MPV Immature Gran % (Auto) Neut % (Auto) Lymph % (Auto) [place] % (Auto) Eos % (Auto) Baso % (Auto) Lymph # (Auto) [place] # (Auto) Eos # (Auto) Baso # (Auto) Abs Immat Gran (auto) Absolute Neuts (auto) Absolute Nucleated RBC Nucleated RBC % (auto) Neutrophils % (Manual) Band Neutrophils % Monocytes % (Manual) Abs Neuts (Manual) Monocytes # (Manual) Platelet Estimate Plt Morphology Comment RBC Morphology Tear Drop Cells Ovalocytes [place] Cells ESR PT INR APTT D-Dimer Sodium 143 140 141 Potassium 3.1 L 4.4 D 3.4 D Chloride 107 107 104 Carbon Dioxide 29 23 27 Anion Gap 10 L 14 13 BUN 44 H 37 H 34 H Creatinine 0.89 0.83 0.80 Estim Creat Clear Calc 78.1 83.7 86.9 Estimated GFR > 60 > 60 > 60 Random Glucose 83 D 137 H D 73 D Fasting Glucose Lactic Acid Calcium 8.2 L D 8.1 L 8.4 Magnesium 2.1 Total Bilirubin Direct Bilirubin AST ALT Alkaline Phosphatase Total Creatine Kinase Troponin I High Sens C-Reactive Protein Total Protein Albumin Lipase Urine Color Urine Appearance Urine pH Ur Specific [place] Urine Protein Urine Glucose (UA) Urine Ketones Urine Blood Urine Nitrite Ur Leukocyte Esterase Urine RBC Urine WBC Ur Squamous Epith Cells Urine Bacteria Hyaline Casts Urine Mucus Vancomycin Trough COVID-19 (CADE) COVID-19 Clin Com 11/29/20 11/29/20 11/30/20 05:54 05:54 14:15 WBC 13.3 H RBC 3.38 L Hgb 10.8 L Hct 32.4 L MCV 95.9 MCH 32.0 MCHC 33.3 RDW 13.0 Plt Count 188 MPV 9.8 Immature Gran % (Auto) 1.8 H Neut % (Auto) 85.1 H Lymph % (Auto) 7.9 L [place] % (Auto) 3.7 Eos % (Auto) 1.3 Baso % (Auto) 0.2 Lymph # (Auto) 1.1 L [place] # (Auto) 0.5 Eos # (Auto) 0.2 Baso # (Auto) 0.0 Abs Immat Gran (auto) 0.24 H Absolute Neuts (auto) 11.3 H Absolute Nucleated RBC 0.000 Nucleated RBC % (auto) 0.0 Neutrophils % (Manual) Band Neutrophils % Monocytes % (Manual) Abs Neuts (Manual) Monocytes # (Manual) Platelet Estimate Plt Morphology Comment RBC Morphology Tear Drop Cells Ovalocytes [place] Cells ESR PT INR APTT D-Dimer Sodium 137 136 Potassium 4.0 4.7 Chloride 101 103 Carbon Dioxide 29 27 Anion Gap 11 L 11 L BUN 20 H 25 H Creatinine 0.75 0.80 Estim Creat Clear Calc 92.7 86.9 Estimated GFR > 60 > 60 Random Glucose 103 D 82 Fasting Glucose Lactic Acid Calcium 8.0 L 8.7 D Magnesium Total Bilirubin 1.9 H Direct Bilirubin 1.3 H AST 32 ALT 66 H Alkaline Phosphatase 157 H D Total Creatine Kinase 25 L D Troponin I High Sens C-Reactive Protein Total Protein 5.4 L Albumin 2.5 L D Lipase Urine Color Urine Appearance Urine pH Ur Specific [place] Urine Protein Urine Glucose (UA) Urine Ketones Urine Blood Urine Nitrite Ur Leukocyte Esterase Urine RBC Urine WBC Ur Squamous Epith Cells Urine Bacteria Hyaline Casts Urine Mucus Vancomycin Trough COVID-19 (CADE) COVID-19 Clin Com 11/30/20 11/30/20 12/03/20 14:15 14:16 06:18 WBC 13.5 H 10.0 RBC 3.32 L 3.03 L Hgb 10.6 L 9.6 L Hct 31.9 L 29.9 L MCV 96.1 98.7 H MCH 31.9 31.7 MCHC 33.2 32.1 RDW 13.0 13.2 Plt Count 232 319 D MPV 9.3 L 9.1 L Immature Gran % (Auto) 1.5 H Neut % (Auto) 84.5 H Lymph % (Auto) 8.1 L [place] % (Auto) 4.2 Eos % (Auto) 1.5 Baso % (Auto) 0.2 Lymph # (Auto) 1.1 L [place] # (Auto) 0.6 Eos # (Auto) 0.2 Baso # (Auto) 0.0 Abs Immat Gran (auto) 0.20 H Absolute Neuts (auto) 11.4 H Absolute Nucleated RBC 0.020 H 0.000 Nucleated RBC % (auto) 0.1 0.0 Neutrophils % (Manual) Band Neutrophils % Monocytes % (Manual) Abs Neuts (Manual) Monocytes # (Manual) Platelet Estimate Plt Morphology Comment RBC Morphology Tear Drop Cells Ovalocytes [place] Cells ESR PT 14.4 H INR 1.3 H APTT 37.3 D-Dimer Sodium Potassium Chloride Carbon Dioxide Anion Gap BUN Creatinine Estim Creat Clear Calc Estimated GFR Random Glucose Fasting Glucose Lactic Acid Calcium Magnesium Total Bilirubin Direct Bilirubin AST ALT Alkaline Phosphatase Total Creatine Kinase Troponin I High Sens C-Reactive Protein Total Protein Albumin Lipase Urine Color Urine Appearance Urine pH Ur Specific [place] Urine Protein Urine Glucose (UA) Urine Ketones Urine Blood Urine Nitrite Ur Leukocyte Esterase Urine RBC Urine WBC Ur Squamous Epith Cells Urine Bacteria Hyaline Casts Urine Mucus Vancomycin Trough COVID-19 (CADE) COVID-19 Jambo Com 12/03/20 06:18 WBC RBC Hgb Hct MCV MCH MCHC RDW Plt Count MPV Immature Gran % (Auto) Neut % (Auto) Lymph % (Auto) [place] % (Auto) Eos % (Auto) Baso % (Auto) Lymph # (Auto) [place] # (Auto) Eos # (Auto) Baso # (Auto) Abs Immat Gran (auto) Absolute Neuts (auto) Absolute Nucleated RBC Nucleated RBC % (auto) Neutrophils % (Manual) Band Neutrophils % Monocytes % (Manual) Abs Neuts (Manual) Monocytes # (Manual) Platelet Estimate Plt Morphology Comment RBC Morphology Tear Drop Cells Ovalocytes [place] Cells ESR PT INR APTT D-Dimer Sodium 138 Potassium 4.1 Chloride 103 Carbon Dioxide 28 Anion Gap 11 L BUN 19 H Creatinine 0.82 Estim Creat Clear Calc 84.8 Estimated GFR > 60 Random Glucose 87 Fasting Glucose Lactic Acid Calcium 8.6 Magnesium Total Bilirubin Direct Bilirubin AST ALT Alkaline Phosphatase Total Creatine Kinase 11 L D Troponin I High Sens C-Reactive Protein 7.78 H Total Protein Albumin Lipase Urine Color Urine Appearance Urine pH Ur Specific [place] Urine Protein Urine Glucose (UA) Urine Ketones Urine Blood Urine Nitrite Ur Leukocyte Esterase Urine RBC Urine WBC Ur Squamous Epith Cells Urine Bacteria Hyaline Casts Urine Mucus Vancomycin Trough COVID-19 (CADE) COVID-19 Jambo Com Assessment and Plan Final Anesthetic Review Family History of Problems with Anesthesia: No History of Problems with Anesthesia: No
[2020-12-04] MEDS: Lactated Ringers 1,000 ML 100 ML IVCONT (14:34)
--- NOTE | 2020-12-04 15:00 | CA_ITS ---
Transesophageal Echocardiogram Patient (Last, First, Middle): Navin Alejandro, Gender: Male Date of : 1950 Age: 70 Procedure Date: 12/04/2020 Procedure Type: Transesophageal Echocardiogram Location: [facility] [place] Height: 172.72 cm Weight: kg Clinical Support Specialist: FIORELLA Referring MD: Ry Novak MD Statistical Methods Teacher: Ry Novak MD Symptoms: BACTEREMIA R/O ENDOCARDITIS Conclusion: ??? Normal biventricular function. ??? No definitive evidence of vegetation on the Visualized valves. Findings Left Ventricle Normal left ventricular size and systolic function. The visually estimated ejection fraction is between 55-60%. There is no evidence of regional wall motion abnormalities. Right Ventricle Normal right ventricular cavity size and systolic function. Atria The left atrium is normal in size. There is no evidence of a thrombus in the left atrial appendage. There is no evidence of interatrial shunt by color Doppler. Aortic Valve There is a normal trileaflet aortic valve. No evidence of vegetation or mass on the mass. Mitral Valve Normal mitral valve structure and function. No evidence of vegetation or mass on the mass. Pulmonic Valve Normal pulmonic valve structure and function. Tricuspid Valve Normal tricuspid valve structure and function. No evidence of vegetation or mass on the mass. Great Vessels All visible segments of the aorta are normal in size. Pericardium/Pleural There is no evidence of pericardial effusion. Updated by Ry Novak on 01:08 PM with Status of Final Ry Novak MD electronically signed on 12/05/2020 1:08:42 PM with status of Final
--- NOTE | 2020-12-04 17:04 | PC.NURSE ---
Patient out of OR to PACU with #20 PRN angio in right AC. Dressing dry and intact. Site asymptomatic.
[2020-12-04] MEDS: iohexoL 350 MG/ML 100 ML INFUS..BTL IV (22:35)
[2020-12-04] MEDS: lamoTRIgine 25 MG TABLET PO (22:46)
[2020-12-05] VITALS (9 sets, daily range): BP systolic 119–140; BP diastolic 65–80; PULSE 72–85; RESP 12–20; TEMP 36.6–37.5; O2SAT 93–97
[2020-12-05] MEDS: Acetaminophen 325 MG TABLET 650 MG PO ×4 (01:22→17:25)
[2020-12-05] MEDS: Heparin Sodium,Porcine 5,000 UNIT/ML VIAL 5000 UNIT SUBCUT ×3 (06:30→21:13)
[2020-12-05] MEDS: polyethylene glycoL 3350 17 GM POWD.PACK PO (09:30)
[2020-12-05] MEDS: Docusate Sodium 100 MG CAPSULE PO ×2 (09:30→21:12)
[2020-12-05] MEDS: Metoprolol Tartrate 50 MG TABLET PO ×2 (09:30→21:12)
[2020-12-05] MEDS: amLODIPine Besylate 5 MG TABLET 10 MG PO (09:31)
[2020-12-05] MEDS: 0.9 % Sodium Chloride Flush 3 ML SYRINGE IVFLUSH (09:31)
[2020-12-05] MEDS: Cyclobenzaprine HCl 5 MG TABLET PO ×3 (09:31→21:13)
[2020-12-05] MEDS: Gabapentin 100 MG CAPSULE 200 MG PO ×2 (09:31→21:13)
[2020-12-05] MEDS: Nystatin Powder 15 GM BOTTLE 1 APPL TOPICAL ×2 (09:42→21:14)
[2020-12-05] MEDS: Lidocaine 4 % Patch ADH..PATCH 1 PATCH TRANSDERMA (09:42)
--- NOTE | 2020-12-05 09:43 | HO.PM.IMPN ---
Subjective Subjective Date of Service: 12/05/20 Interval History: Had EMILY yesterday- no vegetation BCx from 12/02 still positive Daptomycin re-dosed yesterday for improved renal function Frustrated Still c/o neck pain No fever Review of Systems Review of Systems: Yes all other systems are reviewed and are negative Physical Exam Vital Signs: Vital Signs: Last Vital Signs Temp 98 F 12/05/20 07:20 Pulse 77 12/05/20 09:31 Resp 18 12/05/20 07:20 BP 130/65 12/05/20 09:31 Pulse Ox 97 12/05/20 07:20 Body Mass Index 31.4 Gen: in no acute distress HEENT: sclera anicteric, moist mucus membranes Neck: supple Lungs: clear to auscultation bilaterally Heart: regular rate and rhythm, no murmurs Abd: soft, non-tender, non-distended Ext: no edema Skin: warm/well-perfused, L elbow healed ulcer Neuro: alert and oriented x3, normal strength in legs bilaterally Psych: appropriate affect Objective Data Active Medications Acetaminophen (Acetaminophen 325 Mg Tablet) 650 mg PO Q6H [facility] Last Admin: 12/05/20 06:30 Dose: 650 mg Documented by: CHANTELLE Amlodipine Besylate (Amlodipine Besylate 5 Mg Tablet) 10 mg PO DAILY [facility]; Protocol Last Admin: 12/05/20 09:31 Dose: 10 mg Documented by: KRYSTAL Cyclobenzaprine HCl (Cyclobenzaprine Hcl 5 Mg Tablet) 5 mg PO TID [facility] Last Admin: 12/05/20 09:31 Dose: 5 mg Documented by: KRYSTAL Docusate Sodium (Docusate Sodium 100 Mg Capsule) 100 mg PO BID [facility] Last Admin: 12/05/20 09:30 Dose: 100 mg Documented by: KRYSTAL Gabapentin (Gabapentin 100 Mg Capsule) 200 mg PO BID [facility] Last Admin: 12/05/20 09:31 Dose: 200 mg Documented by: KRYSTAL Heparin Sodium (Porcine) (Heparin Sodium,Porcine 5,000 Unit/Ml Vial) 5,000 unit SUBCUT Q8H [facility] Last Admin: 12/05/20 06:30 Dose: 5,000 unit Documented by: CHANTELLE Hydromorphone HCl (Hydromorphone Hcl 0.5 Mg/0.5 Ml Syringe) 0.5 mg IVPUSH Q4H PRN; Protocol PRN Reason: severe pain Last Admin: 12/04/20 05:21 Dose: 0.5 mg Documented by: YUNI Daptomycin 700 mg/ Sodium (Chloride) 64 mls @ 99.783 mls/hr IV Q24H [facility] Last Infusion: 12/04/20 13:45 Dose: 0 mls/hr Documented by: LAMONTE Lactated Ringer's (Lr) 1,000 mls @ 100 mls/hr IVCONT .Q10H [facility] Last Admin: 12/05/20 09:43 Dose: Not Given Documented by: KRYSTAL Non-Admin Reason: OR med Lamotrigine (Lamotrigine 25 Mg Tablet) 25 mg PO BEDTIME [facility] Last Admin: 12/04/20 22:46 Dose: 25 mg Documented by: CHANTELLE Lidocaine (Lidocaine 4 % Patch Adh..Patch) 1 patch TRANSDERMA DAILY [facility]; Protocol Last Admin: 12/05/20 09:42 Dose: 1 patch Documented by: KRYSTAL Metoprolol Tartrate (Metoprolol Tartrate 50 Mg Tablet) 50 mg PO BID [facility]; Protocol Last Admin: 12/05/20 09:30 Dose: 50 mg Documented by: KRYSTAL Mineral Oil (Mineral Oil Enema 133 Ml Enema) 133 ml [place] ONCE PRN PRN Reason: constipation Last Admin: 11/23/20 11:24 Dose: 133 ml Documented by: YOGI Nystatin (Nystatin Powder 15 Gm Bottle) 1 appl TOPICAL BID [facility]; Protocol Last Admin: 12/05/20 09:42 Dose: 1 appl Documented by: KRYSTAL Polyethylene Glycol (Polyethylene Glycol 3350 17 Gm Powd.Pack) 17 gm PO DAILY [facility] Last Admin: 12/05/20 09:30 Dose: 17 gm Documented by: KRYSTAL Senna (Sennosides 8.6 Mg Tablet) 17.2 mg PO BEDTIME PRN PRN Reason: Constipation Sodium Chloride (0.9 % Sodium Chloride Flush 3 Ml Syringe) 3 ml IVFLUSH QSHIFT [facility] Last Admin: 12/05/20 09:31 Dose: 3 ml Documented by: KRYSTAL Temazepam (Temazepam 15 Mg Capsule) 15 mg PO BEDTIME PRN PRN Reason: insomnia Labs CBC & Chem 7: 12/03/20 06:18 12/03/20 06:18 Labs: Impressions Lumbar Spine CT 12/04/20 22:32 IMPRESSION: * No new pathology in the degenerated lumbar spine compared to 11/29/2020. * Degenerative disc disease is severe at L1-L2 and L5-S1. There is multifactorial spinal canal stenosis at L4-L5. * Neural foraminal stenosis is severe bilaterally at L5-S1. * No new vertebral endplate erosions. No CT imaging evidence of infectious discitis or osteomyelitis. * A small amount of fluid medial to the right psoas muscle at the L4 level is unchanged. The other patchy pockets of fluid lateral to the right psoas muscle are either stable or slightly increased in size compared to 11/29/2020. Microbiology Microbiology Results: Microbiology 12/02/20 06:40 Blood Culture - Final Blood - Venous Staphylococcus aureus 12/02/20 06:30 Blood Culture - Preliminary Blood - Venous Prelim: GPC Gram Stain only Assessment and Plan (1) Hypokalemia: Status: Acute (2) Chronic back pain: Status: Acute (3) Neck pain: Status: Acute (4) HTN (hypertension): Status: Acute (5) Acute respiratory failure with hypoxia: Status: Acute (6) Staphylococcus aureus bacteremia: Status: Acute (7) DIEGO (acute kidney injury): Status: Acute Assessment and Plan: hospital d#14 70yo M presented with severe back/neck pain, found to have persistent MSSA bacteremia with psoas abscess # psoas abscess # MSSA bacteremia, persistent [all BCx from 11/22-12/02/20 positive] - ID following - CT-guided aspiration 11/30 growing MSSA - last BCx from 12/02 positive, surveillance BCx drawn today - continue daptomycin [had rash with nafcillin] d#10 but will need 42d via PICC from 1st negative BCx and still awaiting clearance - TTE 11/24 and EMILY 12/04 no vegetation - repeat L-spine shows multiple fluid collections; will discuss with IR # neck pain - CT C-spine negative for cervical epidural abscess - lidocaine patch, prn hydromorphone # encephalopathy, septic - no emboli on MRI. Neuro consulted. treat bacteremia as above. # acute hypoxic resp failure - resolved, was likely due to atelectasis # mood disorder/hypomania - continue lamotrigine. Psych re-consulted 12/03 # constipation - bowel regimen # insomnia - temazepam prn # DIEGO - resolved, was likely due to excess NSAID use [avoid]; lisinopril, furosemide, and HCTZ on hold # HTN - amlodipine + metoprolol; lisinopril, furosemide, and HCTZ on hold # hypoK - repleted # VTE ppx - UFH # dispo - will need STR once bloodstream clears Quality Stroke Does the patient have a stroke diagnosis?: No VTE Prior VTE?: No VTE Risk Level:: Medical - moderate - high VTE Device Contraindication: Treatment Not Indicated VTE Drug Contraindication: N/A - Med Ordered
[2020-12-05] MEDS: DAPTOmycin 700 MG in 0.9 % Sodium Chloride 50 ML 99.78 MG IV (12:42)
--- NOTE | 2020-12-05 12:42 | PM.PNCARD ---
Subjective Subjective Date of Service: 12/05/20 Principal diagnosis: Bacteremia Interval history: Underwent EMILY yesterday. This did not show any evidence of endocarditis. He saying he is feeling better today. He is saying he has a good appetite. Physical Exam Vital Signs: Last Vital Signs Temp 97.8 F 12/05/20 11:21 Pulse 74 12/05/20 11:21 Resp 18 12/05/20 11:21 BP 128/69 12/05/20 11:21 Pulse Ox 93 12/05/20 11:21 Body Mass Index 31.4 ? GENERAL APPEARANCE: in no acute distress, pleasant. NECK: no carotid bruit, no jugular venous distention. SKIN: no suspicious lesions, warm and dry. HEART: no murmurs, regular rate and rhythm. LUNGS: clear to auscultation bilaterally. ABDOMEN: soft, nontender. EXTREMITIES: no edema. PERIPHERAL PULSES: equal. NEUROLOGIC: No gross deficits, AAO X 3 Results Labs and Meds Result diagrams: 12/03/20 06:18 12/03/20 06:18 Imaging Radiologist's impression: Impressions Lumbar Spine CT 12/04/20 22:32 IMPRESSION: * No new pathology in the degenerated lumbar spine compared to 11/29/2020. * Degenerative disc disease is severe at L1-L2 and L5-S1. There is multifactorial spinal canal stenosis at L4-L5. * Neural foraminal stenosis is severe bilaterally at L5-S1. * No new vertebral endplate erosions. No CT imaging evidence of infectious discitis or osteomyelitis. * A small amount of fluid medial to the right psoas muscle at the L4 level is unchanged. The other patchy pockets of fluid lateral to the right psoas muscle are either stable or slightly increased in size compared to 11/29/2020. Progress Note: A&P Assessment and plan (1) Staphylococcus aureus bacteremia: Status: Acute Assessment and Plan: 70-year-old gentleman with psoas abscess and MSSA bacteremia. He has persistent bacteremia despite drainage of the abscess and we were asked to assess for endocarditis. He underwent EMILY yesterday which did not show any evidence of vegetation. Currently no clear cardiac involvement. Please continue workup for other sources. We will sign off for now. Please page if any questions arise. Thank you for allowing me to participate in the care of your patient. Please feel free to contact me if you have any questions. Fall Risk Details Current Medications: Current Medications Acetaminophen (Acetaminophen 325 Mg Tablet) 650 mg PO Q6H REPLACED BY [facility] Last Admin: 12/05/20 06:30 Dose: 650 mg Documented by: Amlodipine Besylate (Amlodipine Besylate 5 Mg Tablet) 10 mg PO DAILY [facility]PL[facility] BY [facility]; Protocol Last Admin: 12/05/20 09:31 Dose: 10 mg Documented by: Cyclobenzaprine HCl (Cyclobenzaprine Hcl 5 Mg Tablet) 5 mg PO TID REPLACED BY [facility] Last Admin: 12/05/20 09:31 Dose: 5 mg Documented by: Docusate Sodium (Docusate Sodium 100 Mg Capsule) 100 mg PO BID [facility]PL[facility]ED BY [facility] Last Admin: 12/05/20 09:30 Dose: 100 mg Documented by: Gabapentin (Gabapentin 100 Mg Capsule) 200 mg PO BID [facility]PL[facility]ED BY [facility] Last Admin: 12/05/20 09:31 Dose: 200 mg Documented by: Heparin Sodium (Porcine) (Heparin Sodium,Porcine 5,000 Unit/Ml Vial) 5,000 unit SUBCUT Q8H [facility]PL[facility]ED BY [facility] Last Admin: 12/05/20 06:30 Dose: 5,000 unit Documented by: Hydromorphone HCl (Hydromorphone Hcl 0.5 Mg/0.5 Ml Syringe) 0.5 mg IVPUSH Q4H PRN; Protocol PRN Reason: severe pain Last Admin: 12/04/20 05:21 Dose: 0.5 mg Documented by: Daptomycin 700 mg/ Sodium (Chloride) 64 mls @ 99.783 mls/hr IV Q24H [facility]PL[facility] Last Infusion: 12/04/20 13:45 Dose: Infused Documented by: Lactated Ringer's (Lr) 1,000 mls @ 100 mls/hr IVCONT .Q10H REPLACED BY [facility] Last Admin: 12/05/20 09:43 Dose: Not Given Documented by: Lamotrigine (Lamotrigine 25 Mg Tablet) 25 mg PO BEDTIME REPLACED BY [facility] Last Admin: 12/04/20 22:46 Dose: 25 mg Documented by: Lidocaine (Lidocaine 4 % Patch Adh..Patch) 1 patch TRANSDERMA DAILY [facility]PL[facility]; Protocol Last Admin: 12/05/20 09:42 Dose: 1 patch Documented by: Metoprolol Tartrate (Metoprolol Tartrate 50 Mg Tablet) 50 mg PO BID [facility]PL[facility] BY [facility]; Protocol Last Admin: 12/05/20 09:30 Dose: 50 mg Documented by: Mineral Oil (Mineral Oil Enema 133 Ml Enema) 133 ml [place] ONCE PRN PRN Reason: constipation Last Admin: 11/23/20 11:24 Dose: 133 ml Documented by: Nystatin (Nystatin Powder 15 Gm Bottle) 1 appl TOPICAL BID REPLACED BY [facility]; Protocol Last Admin: 12/05/20 09:42 Dose: 1 appl Documented by: Polyethylene Glycol (Polyethylene Glycol 3350 17 Gm Powd.Pack) 17 gm PO DAILY REPLACED BY [facility] Last Admin: 12/05/20 09:30 Dose: 17 gm Documented by: Senna (Sennosides 8.6 Mg Tablet) 17.2 mg PO BEDTIME PRN PRN Reason: Constipation Sodium Chloride (0.9 % Sodium Chloride Flush 3 Ml Syringe) 3 ml IVFLUSH QSHIFT REPLACED BY [facility] Last Admin: 12/05/20 09:31 Dose: 3 ml Documented by: Temazepam (Temazepam 15 Mg Capsule) 15 mg PO BEDTIME PRN PRN Reason: insomnia Time Spent With Patient Time: Total time spent is greater than 50% in coordination of care (as documented) at patient's floor/unit and/or counseling patient: Time with patient: 15 - 24 minutes Progress Note: Quality Stroke Does the patient have a stroke diagnosis?: No Procedures Date of Service Date of Service: 12/05/20
--- NOTE | 2020-12-05 14:11 | PM.CNGS ---
History of Present Illness Consult details Consult date: 12/05/20 Narrative: 70-year-old male referred for psoas abscesses. He was admitted the hospital about 13 days ago because of neck pain and he was noted to be septic at that time. He also has had positive blood cultures with MSSA. He was noted to have a psoas abscess and he underwent CT drainage last November 29, 2020. He however continued to have positive blood cultures. A repeat CT scan was done yesterday which for smaller pockets of was abscesses, largest 1 was being 2.6 cm in diameter. He otherwise denies any fever or chills. He denies abdominal pain. He has history of lumbar injections for chronic back pain. He also had a recent skin abscess on the elbow area. He has had EMILY's which have been negative for vegetations. Review of Systems Constitutional: Constitutional: Denies chills and Denies fever(s) Cardiovascular: Cardiovascular: Denies chest pain and Reports dyspnea on exertion Respiratory: Respiratory: Denies cough and Reports dyspnea on exertion Gastrointestinal: Gastrointestinal: Denies hematochezia and Denies change in bowel habits Genitourinary: Genitourinary: Denies hematuria and Denies difficulty urinating Musculoskeletal: Musculoskeletal: Reports back pain and Reports limited range of motion Neurologic: Denies focal weakness and Denies convulsions Psychiatric: Psychiatric: Denies depression and Denies mood swings PMFSH Past Medical History Medical History Chronic back pain HTN (hypertension) Surgical History Surgical History History of selective injection of anesthetic agent around lumbar nerve root Social History Social History Household Members: None Housing: Other Housing Other:: room at a boarding house Alcohol intake: current Alcohol intake frequency: holidays/special occasions only Patient Tobacco Use Status: Never used Tobacco Use of substances other than those prescribed or required for medical reasons: No Currently Displaying Signs/Symptoms of Drug Intoxication Withdrawal: No Have you been hit, kicked, punched, or otherwise hurt by someone within the past year? If so, by whom?: No Do you feel safe in your current relationship?: No Current Relationship Is there a partner from a previous relationship who is making you feel unsafe now?: No Are you made to feel afraid or neglected: No Are you DNR?: No Advance Directives: No Advance Directives Information Provided: Yes Do you have thoughts of harming others: None Do you have a plan to hurt others: No Plan Recently lost weight without trying: No Nutrition Risks: No Nutritional Risk Current occupational status: retired Meds Allergies Allergy/AdvReac Type Severity Reaction Status Date / Time oxycodone AdvReac Itching Verified 11/22/20 00:30 Active Medications: Current Medications Acetaminophen (Acetaminophen 325 Mg Tablet) 650 mg PO Q6H [facility] Last Admin: 12/05/20 12:43 Dose: 650 mg Documented by: Amlodipine Besylate (Amlodipine Besylate 5 Mg Tablet) 10 mg PO DAILY [facility]; Protocol Last Admin: 12/05/20 09:31 Dose: 10 mg Documented by: Cyclobenzaprine HCl (Cyclobenzaprine Hcl 5 Mg Tablet) 5 mg PO TID [facility] Last Admin: 12/05/20 09:31 Dose: 5 mg Documented by: Docusate Sodium (Docusate Sodium 100 Mg Capsule) 100 mg PO BID [facility] Last Admin: 12/05/20 09:30 Dose: 100 mg Documented by: Gabapentin (Gabapentin 100 Mg Capsule) 200 mg PO BID [facility] Last Admin: 12/05/20 09:31 Dose: 200 mg Documented by: Heparin Sodium (Porcine) (Heparin Sodium,Porcine 5,000 Unit/Ml Vial) 5,000 unit SUBCUT Q8H [facility] Last Admin: 12/05/20 12:42 Dose: 5,000 unit Documented by: Hydromorphone HCl (Hydromorphone Hcl 0.5 Mg/0.5 Ml Syringe) 0.5 mg IVPUSH Q4H PRN; Protocol PRN Reason: severe pain Last Admin: 12/04/20 05:21 Dose: 0.5 mg Documented by: Daptomycin 700 mg/ Sodium (Chloride) 64 mls @ 99.783 mls/hr IV Q24H [facility] Last Infusion: 12/05/20 13:52 Dose: Infused Documented by: Lactated Ringer's (Lr) 1,000 mls @ 100 mls/hr IVCONT .Q10H [facility] Last Admin: 12/05/20 09:43 Dose: Not Given Documented by: Lamotrigine (Lamotrigine 25 Mg Tablet) 25 mg PO BEDTIME [facility] Last Admin: 12/04/20 22:46 Dose: 25 mg Documented by: Lidocaine (Lidocaine 4 % Patch Adh..Patch) 1 patch TRANSDERMA DAILY [facility]; Protocol Last Admin: 12/05/20 09:42 Dose: 1 patch Documented by: Metoprolol Tartrate (Metoprolol Tartrate 50 Mg Tablet) 50 mg PO BID [facility]; Protocol Last Admin: 12/05/20 09:30 Dose: 50 mg Documented by: Mineral Oil (Mineral Oil Enema 133 Ml Enema) 133 ml [place] ONCE PRN PRN Reason: constipation Last Admin: 11/23/20 11:24 Dose: 133 ml Documented by: Nystatin (Nystatin Powder 15 Gm Bottle) 1 appl TOPICAL BID [facility]; Protocol Last Admin: 12/05/20 09:42 Dose: 1 appl Documented by: Polyethylene Glycol (Polyethylene Glycol 3350 17 Gm Powd.Pack) 17 gm PO DAILY [facility] Last Admin: 12/05/20 09:30 Dose: 17 gm Documented by: Senna (Sennosides 8.6 Mg Tablet) 17.2 mg PO BEDTIME PRN PRN Reason: Constipation Sodium Chloride (0.9 % Sodium Chloride Flush 3 Ml Syringe) 3 ml IVFLUSH QSHIFT [facility] Last Admin: 12/05/20 09:31 Dose: 3 ml Documented by: Temazepam (Temazepam 15 Mg Capsule) 15 mg PO BEDTIME PRN PRN Reason: insomnia Home Medications Medication Instructions Recorded Confirmed Last Taken Type amlodipine 5 mg tablet 1 tab PO DAILY 11/22/20 11/22/20 11/21/20 History atorvastatin 20 mg tablet 1 tab PO BEDTIME 11/22/20 11/22/20 11/21/20 History bupropion HCl 150 mg 24 hr tablet, 1 tab PO QAM 11/22/20 11/22/20 11/21/20 History extended release gabapentin 300 mg capsule mg PO 11/22/20 11/21/20 History hydrochlorothiazide 25 mg tablet 1 tab PO DAILY 11/22/20 11/22/20 11/21/20 History lisinopril 10 mg tablet 1 tab PO DAILY 11/22/20 11/22/20 11/21/20 History Physical Exam Vital Signs: Vital Signs: Last Vital Signs Temp 97.8 F 12/05/20 11:21 Pulse 74 09/18/21 11:21 Resp 18 12/05/20 11:21 BP 128/69 12/05/20 11:21 Pulse Ox 93 12/05/20 11:21 Body Mass Index 31.4 Const: General: comfortable and no acute distress Orientation/consciousness: patient oriented x3 Neck: Neck: Yes no lymphadenopathy Resp: Other: Appears mildly short of breath Auscultation: clear to auscultation bilaterally Cardio: Rhythm: regular rhythm GI: Palpation (GI): Soft to palpation, nontender and no guarding Neuro: General: patient oriented x3 Results Labs Result diagrams: 12/03/20 06:18 12/03/20 06:18 Labs: Urine 11/22/20 Range/Units 02:48 Urine Color YELLOW Urine Appearance CLEAR Urine pH 6.0 (5.0-8.0) Ur Specific [place] 1.025 (1.005-1.025) Urine Protein 1+ H (NEG-TRACE) MG/DL Urine Glucose (UA) NEG (NEG) MG/DL All other labs normal. Imaging CT scan - pelvis: report reviewed and image reviewed Assessment and Plan (1) Staphylococcus aureus bacteremia: Status: Acute Reivew of his CT scan shows 4 small abscesses in the right psoas, with the largest one about 2.6 cm. He apparently had a large abscess aspirated last 11/30. He has remained afebrile, and has a normal WBC, but he has had persistent positive blood cultures after initial aspiration. I will discuss this with Dr. Alves and see if the can repeat CT drainage of at least the largest abscess collections. In the meantime, he looks well and does not appear septic. We should continue with IV abx. I will follow along while he is in the hospital. I am uncertain as to the origin of his psoas abscess - he had a skin abscess that may have hematogenously seeded this, and he also has had hsitory of back injections. Procedures Date of Service Date of Service: 12/05/20
--- NOTE | 2020-12-05 17:34 | HO.POSTANES ---
Post Anesthesia Evaluation Post Anesthesia Evaluation Vital Signs: Vital Signs Temp Pulse Resp BP Pulse Ox 12/05/20 14:52 99.5 F 76 19 119/65 93 12/05/20 11:21 97.8 F 74 18 128/69 93 12/05/20 09:31 77 130/65 12/05/20 09:30 77 130/65 12/05/20 07:20 98 F 77 18 130/65 97 Anesthesia: Monitored Mental Status: Awake Pain Control: Satisfactory Nausea/Vomiting: None Hydration: Adequate Anesthesia-Related Issues: No Anes. Related Issues
[2020-12-05] MEDS: Temazepam 15 MG CAPSULE PO (21:09)
[2020-12-05] MEDS: Lactated Ringers 1,000 ML 100 ML IVCONT (21:09)
[2020-12-05] MEDS: lamoTRIgine 25 MG TABLET PO (21:14)
[2020-12-06] VITALS (8 sets, daily range): BP systolic 110–140; BP diastolic 67–78; PULSE 78–100; RESP 17–20; TEMP 36.4–37.5; O2SAT 94–96
[2020-12-06] MEDS: HYDROmorphone HCl 0.5 MG/0.5 ML SYRINGE IVPUSH (03:44)
[2020-12-06] MEDS: Acetaminophen 325 MG TABLET 650 MG PO ×3 (06:21→17:49)
[2020-12-06] MEDS: Heparin Sodium,Porcine 5,000 UNIT/ML VIAL 5000 UNIT SUBCUT ×3 (06:22→21:45)
[2020-12-06] MEDS: Lactated Ringers 1,000 ML 100 ML IVCONT (07:21)
[2020-12-06] MEDS: 0.9 % Sodium Chloride Flush 3 ML SYRINGE IVFLUSH ×3 (07:21→21:45)
[2020-12-06] MEDS: Docusate Sodium 100 MG CAPSULE PO ×2 (09:05→21:45)
[2020-12-06] MEDS: Metoprolol Tartrate 50 MG TABLET PO ×2 (09:05→21:45)
[2020-12-06] MEDS: Cyclobenzaprine HCl 5 MG TABLET PO ×3 (09:05→21:45)
[2020-12-06] MEDS: polyethylene glycoL 3350 17 GM POWD.PACK PO (09:05)
[2020-12-06] MEDS: Gabapentin 100 MG CAPSULE 200 MG PO ×2 (09:05→21:45)
[2020-12-06] MEDS: Lidocaine 4 % Patch ADH..PATCH 1 PATCH TRANSDERMA (09:06)
[2020-12-06] MEDS: amLODIPine Besylate 5 MG TABLET 10 MG PO (09:06)
[2020-12-06] MEDS: Nystatin Powder 15 GM BOTTLE 1 APPL TOPICAL ×2 (09:10→21:46)
--- NOTE | 2020-12-06 09:48 | P.PNIM_ITS ---
Subjective Subjective Date of Service: 12/06/20 Interval History: no fever back pain about the same, neck pain improved no dyspnea no chest pain no abd pain Review of Systems Review of Systems: Yes all other systems are reviewed and are negative Physical Exam Vital Signs: Vital Signs: Last Vital Signs Temp 98.5 F 12/06/20 03:21 Pulse 100 12/06/20 09:06 Resp 18 12/06/20 07:13 BP 133/73 12/06/20 09:06 Pulse Ox 96 12/06/20 07:13 Body Mass Index 31.4 Gen: in no acute distress HEENT: sclera anicteric, moist mucus membranes Neck: supple Lungs: clear to auscultation bilaterally Heart: regular rate and rhythm, no murmurs Abd: soft, non-tender, non-distended Ext: no edema Skin: warm/well-perfused, L elbow healed ulcer Neuro: alert and oriented x3, normal strength in legs bilaterally Psych: appropriate affect Objective Data Active Medications Acetaminophen (Acetaminophen 325 Mg Tablet) 650 mg PO Q6H [facility] Last Admin: 12/06/20 06:21 Dose: 650 mg Documented by: INDU Amlodipine Besylate (Amlodipine Besylate 5 Mg Tablet) 10 mg PO DAILY [facility]; Protocol Last Admin: 12/06/20 09:06 Dose: 10 mg Documented by: JOSE ANGEL Cyclobenzaprine HCl (Cyclobenzaprine Hcl 5 Mg Tablet) 5 mg PO TID [facility] Last Admin: 12/06/20 09:05 Dose: 5 mg Documented by: JOSE ANGEL Docusate Sodium (Docusate Sodium 100 Mg Capsule) 100 mg PO BID [facility] Last Admin: 12/06/20 09:05 Dose: 100 mg Documented by: JOSE ANGEL Gabapentin (Gabapentin 100 Mg Capsule) 200 mg PO BID [facility] Last Admin: 12/06/20 09:05 Dose: 200 mg Documented by: JOSE ANGEL Heparin Sodium (Porcine) (Heparin Sodium,Porcine 5,000 Unit/Ml Vial) 5,000 unit SUBCUT Q8H [facility] Last Admin: 12/06/20 06:22 Dose: 5,000 unit Documented by: INDU Hydromorphone HCl (Hydromorphone Hcl 0.5 Mg/0.5 Ml Syringe) 0.5 mg IVPUSH Q4H PRN; Protocol PRN Reason: severe pain Last Admin: 12/06/20 03:44 Dose: 0.5 mg Documented by: INDU Daptomycin 700 mg/ Sodium (Chloride) 64 mls @ 99.783 mls/hr IV Q24H [facility] Last Infusion: 12/05/20 13:52 Dose: 0 mls/hr Documented by: KRYSTAL Lactated Ringer's (Lr) 1,000 mls @ 100 mls/hr IVCONT .Q10H [facility] Last Admin: 12/06/20 07:21 Dose: 100 mls/hr Documented by: JOSE ANGEL Lamotrigine (Lamotrigine 25 Mg Tablet) 25 mg PO BEDTIME [facility] Last Admin: 12/05/20 21:14 Dose: 25 mg Documented by: INDU Lidocaine (Lidocaine 4 % Patch Adh..Patch) 1 patch TRANSDERMA DAILY [facility]; Protocol Last Admin: 12/06/20 09:06 Dose: 1 patch Documented by: JOSE ANGEL Metoprolol Tartrate (Metoprolol Tartrate 50 Mg Tablet) 50 mg PO BID [facility]; Protocol Last Admin: 12/06/20 09:05 Dose: 50 mg Documented by: JOSE ANGEL Mineral Oil (Mineral Oil Enema 133 Ml Enema) 133 ml [place] ONCE PRN PRN Reason: constipation Last Admin: 11/23/20 11:24 Dose: 133 ml Documented by: YOGI Nystatin (Nystatin Powder 15 Gm Bottle) 1 appl TOPICAL BID [facility]; Protocol Last Admin: 12/06/20 09:10 Dose: 1 appl Documented by: JOSE ANGEL Polyethylene Glycol (Polyethylene Glycol 3350 17 Gm Powd.Pack) 17 gm PO DAILY [facility] Last Admin: 12/06/20 09:05 Dose: 17 gm Documented by: JOSE ANGEL Senna (Sennosides 8.6 Mg Tablet) 17.2 mg PO BEDTIME PRN PRN Reason: Constipation Sodium Chloride (0.9 % Sodium Chloride Flush 3 Ml Syringe) 3 ml IVFLUSH QSHIFT [facility] Last Admin: 12/06/20 07:21 Dose: 3 ml Documented by: JOSE ANGEL Temazepam (Temazepam 15 Mg Capsule) 15 mg PO BEDTIME PRN PRN Reason: insomnia Last Admin: 12/05/20 21:09 Dose: 15 mg Documented by: HO.[email or web address] Labs CBC & Chem 7: 12/03/20 06:18 12/03/20 06:18 Labs: BCx x2 from 12/05/20 negative at 24h Microbiology Microbiology Results: Microbiology 12/05/20 06:07 Blood Culture - Preliminary Blood - Venous No growth after 24 hours. 12/05/20 06:07 Blood Culture - Preliminary Blood - Venous No growth after 24 hours. 12/02/20 06:30 Blood Culture - Final Blood - Venous Staphylococcus aureus 12/02/20 06:40 Blood Culture - Final Blood - Venous Staphylococcus aureus Echocardiogram Echocardiogram Results: EMILY 12/04/20 Conclusion: Normal biventricular function. ? No definitive evidence of vegetation on the? Visualized valves. Assessment and Plan (1) Hypokalemia: Status: Acute (2) Chronic back pain: Status: Acute (3) Neck pain: Status: Acute (4) HTN (hypertension): Status: Acute (5) Acute respiratory failure with hypoxia: Status: Acute (6) Staphylococcus aureus bacteremia: Status: Acute (7) DIEGO (acute kidney injury): Status: Acute Assessment and Plan: hospital d#15 70yo M presented with severe back/neck pain, found to have persistent MSSA bacteremia with psoas abscess # psoas abscess # MSSA bacteremia, persistent [all BCx from 11/22-12/02/20 positive] - ID following - CT-guided aspiration 11/30 growing MSSA - last BCx from 12/02 positive, surveillance BCx drawn today - continue daptomycin [had rash with nafcillin] d#10 but will need 42d via PICC from 1st negative BCx and still awaiting clearance from 12/05 BCx - TTE 11/24 and EMILY 12/04 no vegetation - repeat L-spine shows multiple fluid collections; Surg consulted and will discuss with IR # neck pain - CT C-spine negative for cervical epidural abscess - lidocaine patch, prn hydromorphone # encephalopathy, septic - no emboli on MRI. Neuro consulted. treat bacteremia as above. # acute hypoxic resp failure - resolved, was likely due to atelectasis # mood disorder/hypomania - continue lamotrigine. Psych re-consulted 12/03 # constipation - bowel regimen # insomnia - temazepam prn # DIEGO - resolved, was likely due to excess NSAID use [avoid]; lisinopril, furosemide, and HCTZ on hold # HTN - amlodipine + metoprolol; lisinopril, furosemide, and HCTZ on hold # hypoK - repleted # VTE ppx - UFH # dispo - will need STR once bloodstream clears Quality Stroke Does the patient have a stroke diagnosis?: No VTE Prior VTE?: No VTE Risk Level:: Medical - moderate - high VTE Device Contraindication: Treatment Not Indicated VTE Drug Contraindication: N/A - Med Ordered
[2020-12-06] MEDS: DAPTOmycin 700 MG in 0.9 % Sodium Chloride 50 ML 99.78 MG IV (11:37)
--- NOTE | 2020-12-06 11:56 | P.PNGS_ITS ---
Subjective Subjective Date of Service: 12/06/20 Interval history: No new complaints No fever reported Tolerating diet well No abdominal pain Physical Exam Vital Signs: Vital Signs: Last Vital Signs Temp 97.5 F 12/06/20 11:07 Pulse 80 12/06/20 11:07 Resp 18 12/06/20 11:07 BP 132/78 12/06/20 11:07 Pulse Ox 95 12/06/20 11:07 Body Mass Index 31.4 Const: General: comfortable and no acute distress Resp: Effort & Inspection: normal respiratory effort Cardio: Rate: regular rate GI: Palpation (GI): Soft to palpation and nontender Procedures Date of Service Date of Service: 12/06/20 Progress Note: A&P Assessment and plan (1) Psoas abscess: Status: Acute Assessment and Plan: Previously aspirated but with persistenceof smaller abscess Will review with Dr. Alves tomorrow with regards to additional aspiration Continue IV antibiotics Blood cultures from yesterday negative Fall Risk Details Current Medications: Current Medications Acetaminophen (Acetaminophen 325 Mg Tablet) 650 mg PO Q6H [facility] Last Admin: 12/06/20 11:37 Dose: 650 mg Documented by: Amlodipine Besylate (Amlodipine Besylate 5 Mg Tablet) 10 mg PO DAILY [facility]; Protocol Last Admin: 12/06/20 09:06 Dose: 10 mg Documented by: Cyclobenzaprine HCl (Cyclobenzaprine Hcl 5 Mg Tablet) 5 mg PO TID [facility] Last Admin: 12/06/20 09:05 Dose: 5 mg Documented by: Docusate Sodium (Docusate Sodium 100 Mg Capsule) 100 mg PO BID [facility] Last Admin: 12/06/20 09:05 Dose: 100 mg Documented by: Gabapentin (Gabapentin 100 Mg Capsule) 200 mg PO BID [facility] Last Admin: 12/06/20 09:05 Dose: 200 mg Documented by: Heparin Sodium (Porcine) (Heparin Sodium,Porcine 5,000 Unit/Ml Vial) 5,000 unit SUBCUT Q8H [facility] Last Admin: 12/06/20 11:37 Dose: 5,000 unit Documented by: Hydromorphone HCl (Hydromorphone Hcl 0.5 Mg/0.5 Ml Syringe) 0.5 mg IVPUSH Q4H PRN; Protocol PRN Reason: severe pain Last Admin: 12/06/20 03:44 Dose: 0.5 mg Documented by: Daptomycin 700 mg/ Sodium (Chloride) 64 mls @ 99.783 mls/hr IV Q24H [facility] Last Admin: 12/06/20 11:37 Dose: 99.78 mls/hr Documented by: Lamotrigine (Lamotrigine 25 Mg Tablet) 25 mg PO BEDTIME [facility] Last Admin: 12/05/20 21:14 Dose: 25 mg Documented by: Lidocaine (Lidocaine 4 % Patch Adh..Patch) 1 patch TRANSDERMA DAILY [facility]; Protocol Last Admin: 12/06/20 09:06 Dose: 1 patch Documented by: Metoprolol Tartrate (Metoprolol Tartrate 50 Mg Tablet) 50 mg PO BID [facility]; Protocol Last Admin: 12/06/20 09:05 Dose: 50 mg Documented by: Mineral Oil (Mineral Oil Enema 133 Ml Enema) 133 ml IN ONCE PRN PRN Reason: constipation Last Admin: 11/23/20 11:24 Dose: 133 ml Documented by: Nystatin (Nystatin Powder 15 Gm Bottle) 1 appl TOPICAL BID [facility]; Protocol Last Admin: 12/06/20 09:10 Dose: 1 appl Documented by: Polyethylene Glycol (Polyethylene Glycol 3350 17 Gm Powd.Pack) 17 gm PO DAILY [facility] Last Admin: 12/06/20 09:05 Dose: 17 gm Documented by: Senna (Sennosides 8.6 Mg Tablet) 17.2 mg PO BEDTIME PRN PRN Reason: Constipation Sodium Chloride (0.9 % Sodium Chloride Flush 3 Ml Syringe) 3 ml IVFLUSH QSHIFT [facility] Last Admin: 12/06/20 07:21 Dose: 3 ml Documented by: Temazepam (Temazepam 15 Mg Capsule) 15 mg PO BEDTIME PRN PRN Reason: insomnia Last Admin: 12/05/20 21:09 Dose: 15 mg Documented by: Time Spent With Patient Time: Total time spent is greater than 50% in coordination of care (as documented) at patient's floor/unit and/or counseling patient: Time with patient: 15 - 24 minutes Quality Stroke Does the patient have a stroke diagnosis?: No VTE Prior VTE?: No VTE Risk Level:: Medical - moderate - high VTE Device Contraindication: Treatment Not Indicated VTE Drug Contraindication: N/A - Med Ordered
[2020-12-06] MEDS: lamoTRIgine 25 MG TABLET PO (21:45)
[2020-12-07] VITALS (9 sets, daily range): BP systolic 109–134; BP diastolic 61–77; PULSE 65–96; RESP 18; TEMP 36.6–37.3; O2SAT 93–97
[2020-12-07] MEDS: HYDROmorphone HCl 0.5 MG/0.5 ML SYRINGE IVPUSH (00:02)
[2020-12-07] MEDS: Heparin Sodium,Porcine 5,000 UNIT/ML VIAL 5000 UNIT SUBCUT ×3 (06:20→20:57)
[2020-12-07] MEDS: Acetaminophen 325 MG TABLET 650 MG PO ×3 (06:21→17:58)
[2020-12-07] MEDS: polyethylene glycoL 3350 17 GM POWD.PACK PO (08:48)
[2020-12-07] MEDS: Lidocaine 4 % Patch ADH..PATCH 1 PATCH TRANSDERMA (08:48)
[2020-12-07] MEDS: Cyclobenzaprine HCl 5 MG TABLET PO ×3 (08:49→20:58)
[2020-12-07] MEDS: Metoprolol Tartrate 50 MG TABLET PO ×2 (08:49→20:58)
[2020-12-07] MEDS: Docusate Sodium 100 MG CAPSULE PO ×2 (08:49→20:58)
[2020-12-07] MEDS: amLODIPine Besylate 5 MG TABLET 10 MG PO (08:49)
[2020-12-07] MEDS: Gabapentin 100 MG CAPSULE 200 MG PO ×2 (08:50→20:58)
[2020-12-07] MEDS: 0.9 % Sodium Chloride Flush 3 ML SYRINGE IVFLUSH ×2 (08:51→15:32)
[2020-12-07] MEDS: Nystatin Powder 15 GM BOTTLE 1 APPL TOPICAL ×2 (08:51→21:00)
--- NOTE | 2020-12-07 09:46 | HO.PM.IMPN ---
Subjective Subjective Date of Service: 12/07/20 Interval History: Neck pain improved Minimal lower back pain No fever Happy that his BCx cleared Review of Systems Review of Systems: Yes all other systems are reviewed and are negative Physical Exam Vital Signs: Vital Signs: Last Vital Signs Temp 99.2 F 12/07/20 07:38 Pulse 81 12/07/20 08:49 Resp 18 12/07/20 07:38 BP 134/67 12/07/20 08:49 Pulse Ox 97 12/07/20 07:38 Body Mass Index 31.4 Gen: in no acute distress HEENT: sclera anicteric, moist mucus membranes Neck: supple Lungs: clear to auscultation bilaterally Heart: regular rate and rhythm, no murmurs Abd: soft, non-tender, non-distended Ext: no edema Skin: warm/well-perfused, L elbow healed ulcer Neuro: alert and oriented x3, no focal neurologic deficit Psych: normal affect Objective Data Active Medications Acetaminophen (Acetaminophen 325 Mg Tablet) 650 mg PO Q6H [facility] Last Admin: 12/07/20 06:21 Dose: 650 mg Documented by: JANIE Amlodipine Besylate (Amlodipine Besylate 5 Mg Tablet) 10 mg PO DAILY [facility]; Protocol Last Admin: 12/07/20 08:49 Dose: 10 mg Documented by: ALVARO Cyclobenzaprine HCl (Cyclobenzaprine Hcl 5 Mg Tablet) 5 mg PO TID [facility] Last Admin: 12/07/20 08:49 Dose: 5 mg Documented by: ALVARO Docusate Sodium (Docusate Sodium 100 Mg Capsule) 100 mg PO BID [facility] Last Admin: 12/07/20 08:49 Dose: 100 mg Documented by: ALVARO Gabapentin (Gabapentin 100 Mg Capsule) 200 mg PO BID [facility] Last Admin: 12/07/20 08:50 Dose: 200 mg Documented by: ALVARO Heparin Sodium (Porcine) (Heparin Sodium,Porcine 5,000 Unit/Ml Vial) 5,000 unit SUBCUT Q8H [facility] Last Admin: 12/07/20 06:20 Dose: 5,000 unit Documented by: JANIE Hydromorphone HCl (Hydromorphone Hcl 0.5 Mg/0.5 Ml Syringe) 0.5 mg IVPUSH Q4H PRN; Protocol PRN Reason: severe pain Last Admin: 12/07/20 00:02 Dose: 0.5 mg Documented by: JANIE Daptomycin 700 mg/ Sodium (Chloride) 64 mls @ 99.783 mls/hr IV Q24H [facility] Last Infusion: 12/06/20 12:37 Dose: 0 mls/hr Documented by: JOSE ANGEL Lamotrigine (Lamotrigine 25 Mg Tablet) 25 mg PO BEDTIME [facility] Last Admin: 12/06/20 21:45 Dose: 25 mg Documented by: JANIE Lidocaine (Lidocaine 4 % Patch Adh..Patch) 1 patch TRANSDERMA DAILY [facility]; Protocol Last Admin: 12/07/20 08:48 Dose: 1 patch Documented by: ALVARO Metoprolol Tartrate (Metoprolol Tartrate 50 Mg Tablet) 50 mg PO BID [facility]; Protocol Last Admin: 12/07/20 08:49 Dose: 50 mg Documented by: ALVARO Mineral Oil (Mineral Oil Enema 133 Ml Enema) 133 ml [place] ONCE PRN PRN Reason: constipation Last Admin: 11/23/20 11:24 Dose: 133 ml Documented by: YOGI Nystatin (Nystatin Powder 15 Gm Bottle) 1 appl TOPICAL BID [facility]; Protocol Last Admin: 12/07/20 08:51 Dose: 1 appl Documented by: ALVARO Polyethylene Glycol (Polyethylene Glycol 3350 17 Gm Powd.Pack) 17 gm PO DAILY [facility] Last Admin: 12/07/20 08:48 Dose: 17 gm Documented by: ALVARO Senna (Sennosides 8.6 Mg Tablet) 17.2 mg PO BEDTIME PRN PRN Reason: Constipation Sodium Chloride (0.9 % Sodium Chloride Flush 3 Ml Syringe) 3 ml IVFLUSH QSHIFT [facility] Last Admin: 12/07/20 08:51 Dose: 3 ml Documented by: ALVARO Temazepam (Temazepam 15 Mg Capsule) 15 mg PO BEDTIME PRN PRN Reason: insomnia Last Admin: 12/05/20 21:09 Dose: 15 mg Documented by: INDU Labs CBC & Chem 7: 12/03/20 06:18 12/03/20 06:18 Labs: Microbiology 12/05/20 06:07 Blood - Venous Blood Culture - Preliminary No growth after 48 hours. 12/05/20 06:07 Blood - Venous Blood Culture - Preliminary No growth after 48 hours. 12/02/20 06:30 Blood - Venous Blood Culture - Final Staphylococcus aureus 12/02/20 06:40 Blood - Venous Blood Culture - Final Staphylococcus aureus 11/30/20 16:22 Abscess Intra-abdominal Gram Stain - Final 11/30/20 16:22 Abscess Intra-abdominal Routine Culture - Final Staphylococcus aureus 11/30/20 16:22 Abscess Intra-abdominal Anaerobic Culture - Final 11/30/20 14:15 Blood - Venous Blood Culture - Final Staphylococcus aureus 11/30/20 14:15 Blood - Venous Blood Culture - Final Staphylococcus aureus 11/26/20 14:14 Blood - Venous Blood Culture - Final Staphylococcus aureus 11/26/20 14:19 Blood - Venous Blood Culture - Final Staphylococcus aureus 11/23/20 05:36 Blood - Venous Blood Culture - Final Staphylococcus aureus 11/23/20 05:36 Blood - Venous Blood Culture - Final Staphylococcus aureus 11/22/20 01:48 Blood - Venous Blood Culture - Final Staphylococcus aureus 11/22/20 00:40 Blood - Venous Blood Culture - Final Staphylococcus aureus Microbiology Microbiology Results: Microbiology 12/05/20 06:07 Blood Culture - Preliminary Blood - Venous No growth after 48 hours. 12/05/20 06:07 Blood Culture - Preliminary Blood - Venous No growth after 48 hours. Assessment and Plan (1) Hypokalemia: Status: Acute (2) Chronic back pain: Status: Acute (3) Neck pain: Status: Acute (4) HTN (hypertension): Status: Acute (5) Acute respiratory failure with hypoxia: Status: Acute (6) Staphylococcus aureus bacteremia: Status: Acute (7) DIEGO (acute kidney injury): Status: Acute Assessment and Plan: hospital d#16 70yo M presented with severe back/neck pain, found to have persistent MSSA bacteremia with psoas abscess, finally cleared bloodstream 12/05/20 # psoas abscess # MSSA bacteremia, persistent [all BCx from 11/22-12/02/20 positive] - ID following - CT-guided aspiration 11/30 growing MSSA - last BCx from 12/05/20 finally negative - continue daptomycin 8 mg/kg q24h [had rash with nafcillin] d#11 but will need 42d from 1st negative BCx, so today is d#3/42 [end date 01/16/21] - TTE 11/24 and then EMILY 12/04 no vegetation - repeat L-spine shows multiple fluid collections around psoas, but given clearance of bloodstream, will manage medically - will order PICC for today # neck pain - CT C-spine negative for cervical epidural abscess - lidocaine patch, prn hydromorphone - improving # encephalopathy, septic - no emboli on MRI. Neuro consulted. treat bacteremia as above. mental status improving # acute hypoxic resp failure - resolved, was likely due to atelectasis # mood disorder/hypomania - continue lamotrigine. Psych re-consulted 12/03; to consider increase lamotrigine to 50 mg qhs around 12/13/20 # constipation - bowel regimen # insomnia - temazepam prn # DIEGO - resolved, was likely due to excess NSAID use [avoid]; lisinopril, furosemide, and HCTZ on hold # HTN - amlodipine + metoprolol; lisinopril, furosemide, and HCTZ on hold # hypoK - repleted # VTE ppx - UFH # dispo - STR for PT, IV ABX infusion Quality Stroke Does the patient have a stroke diagnosis?: No VTE Prior VTE?: No VTE Risk Level:: Medical - moderate - high VTE Device Contraindication: Treatment Not Indicated VTE Drug Contraindication: N/A - Med Ordered
--- NOTE | 2020-12-07 10:01 | PM.PNGS ---
Subjective Subjective Date of Service: 12/07/20 Interval history: He denies any new complaints Has had no fever Abdominal pain or back pain or hip pain Good GI function Physical Exam Vital Signs: Vital Signs: Last Vital Signs Temp 99.2 F 12/07/20 07:38 Pulse 81 12/07/20 08:49 Resp 18 12/07/20 07:38 BP 134/67 12/07/20 08:49 Pulse Ox 97 12/07/20 07:38 Body Mass Index 31.4 Const: General: comfortable and no acute distress Resp: Other: A little short of breath occasionally Effort & Inspection: normal respiratory effort Cardio: Rate: regular rate GI: Palpation (GI): Soft to palpation and nontender Procedures Date of Service Date of Service: 12/07/20 Progress Note: A&P Assessment and plan (1) Psoas abscess: Status: Acute Assessment and Plan: He has had no fever His repeat blood cultures do not show any growth after 48 hours Will hold off on repeat CT drainage then He will be on IV antibiotics for a prolonged period of time with a PICC line Fall Risk Details Current Medications: Current Medications Acetaminophen (Acetaminophen 325 Mg Tablet) 650 mg PO Q6H [facility] Last Admin: 12/07/20 06:21 Dose: 650 mg Documented by: Amlodipine Besylate (Amlodipine Besylate 5 Mg Tablet) 10 mg PO DAILY [facility]; Protocol Last Admin: 12/07/20 08:49 Dose: 10 mg Documented by: Cyclobenzaprine HCl (Cyclobenzaprine Hcl 5 Mg Tablet) 5 mg PO TID [facility] Last Admin: 12/07/20 08:49 Dose: 5 mg Documented by: Docusate Sodium (Docusate Sodium 100 Mg Capsule) 100 mg PO BID [facility] Last Admin: 12/07/20 08:49 Dose: 100 mg Documented by: Gabapentin (Gabapentin 100 Mg Capsule) 200 mg PO BID [facility] Last Admin: 12/07/20 08:50 Dose: 200 mg Documented by: Heparin Sodium (Porcine) (Heparin Sodium,Porcine 5,000 Unit/Ml Vial) 5,000 unit SUBCUT Q8H [facility] Last Admin: 12/07/20 06:20 Dose: 5,000 unit Documented by: Hydromorphone HCl (Hydromorphone Hcl 0.5 Mg/0.5 Ml Syringe) 0.5 mg IVPUSH Q4H PRN; Protocol PRN Reason: severe pain Last Admin: 12/07/20 00:02 Dose: 0.5 mg Documented by: Daptomycin 700 mg/ Sodium (Chloride) 64 mls @ 99.783 mls/hr IV Q24H [facility] Last Infusion: 12/06/20 12:37 Dose: Infused Documented by: Lamotrigine (Lamotrigine 25 Mg Tablet) 25 mg PO BEDTIME [facility] Last Admin: 12/06/20 21:45 Dose: 25 mg Documented by: Lidocaine (Lidocaine 4 % Patch Adh..Patch) 1 patch TRANSDERMA DAILY [facility]; Protocol Last Admin: 12/07/20 08:48 Dose: 1 patch Documented by: Metoprolol Tartrate (Metoprolol Tartrate 50 Mg Tablet) 50 mg PO BID [facility]; Protocol Last Admin: 12/07/20 08:49 Dose: 50 mg Documented by: Mineral Oil (Mineral Oil Enema 133 Ml Enema) 133 ml [place] ONCE PRN PRN Reason: constipation Last Admin: 11/23/20 11:24 Dose: 133 ml Documented by: Nystatin (Nystatin Powder 15 Gm Bottle) 1 appl TOPICAL BID [facility]; Protocol Last Admin: 12/07/20 08:51 Dose: 1 appl Documented by: Polyethylene Glycol (Polyethylene Glycol 3350 17 Gm Powd.Pack) 17 gm PO DAILY [facility] Last Admin: 12/07/20 08:48 Dose: 17 gm Documented by: Senna (Sennosides 8.6 Mg Tablet) 17.2 mg PO BEDTIME PRN PRN Reason: Constipation Sodium Chloride (0.9 % Sodium Chloride Flush 3 Ml Syringe) 3 ml IVFLUSH QSHIFT [facility] Last Admin: 12/07/20 08:51 Dose: 3 ml Documented by: Temazepam (Temazepam 15 Mg Capsule) 15 mg PO BEDTIME PRN PRN Reason: insomnia Last Admin: 12/05/20 21:09 Dose: 15 mg Documented by: Time Spent With Patient Time: Total time spent is greater than 50% in coordination of care (as documented) at patient's floor/unit and/or counseling patient: Time with patient: 15 - 24 minutes Quality Stroke Does the patient have a stroke diagnosis?: No VTE Prior VTE?: No VTE Risk Level:: Medical - moderate - high VTE Device Contraindication: Treatment Not Indicated VTE Drug Contraindication: N/A - Med Ordered
[2020-12-07 10:17] LABS: Hematocrit 28.4 % (42-52); Hemoglobin 9.3 g/dl (14.0-18.0); Mean Corpuscular HGB Conc 32.7 g/dl (31.0-36.0); Mean Corpuscular Hemoglobin 32.1 pg (27.0-33.0); Mean Corpuscular Volume 97.9 fL (80-98); Mean Platelet Volume 8.3 fL (9.4-12.4); Platelet Count 360 X10*3/uL (160-400); Red Cell Distribution Width 12.7 % (11.0-16.0)
[2020-12-07 10:48] LABS: Alanine Aminotransferase 26 U/L (0-40); Albumin Level 2.8 g/dL (3.5-5.0); Alkaline Phosphatase 156 U/L (39-117); Anion Gap 11 (12-20); Aspartate Amino Transferase 17 U/L (5-37); Bilirubin Total 0.6 mg/dL (0.0-1.0); Blood Urea Nitrogen 11 mg/dL (9-16); Calcium 8.8 mg/dL (8.4-10.2); Carbon Dioxide 29 mmol/L (22-29); Chloride 101 mmol/L (96-108); Creatinine Clr Calc Pharmacy 79.9; Estimated Glomerular Filt Rate > 60; Glucose Random 160 mg/dL (60-115); Potassium 4.1 mmol/L (3.3-5.1); Sodium 137 mmol/L (135-145); Total Protein 6.8 g/dL (6.5-8.0)
[2020-12-07 13:00] LABS: COVID-19 Test Negative (Negative)
[2020-12-07 13:06] LABS: Immature Retic Fraction 20.5 % (2.3-13.4); Retic HGB Equivalent 30.9 pg (30.0-35.0); Reticulocyte Percent 4.2 % (0.5-1.8); Reticulocytes Absolute 0.122 X10*6/uL (0.026-0.095)
[2020-12-07 13:30] LABS: Iron 23 mcg/dL (45-160); Lactate Dehydrogenase 164 U/L (118-273); Percent Iron Saturation 10 % (15-50); Total Iron Binding Capacity 225 mcg/dL (228-428); Unsaturated Iron Binding 202 ug/dL
--- NOTE | 2020-12-07 13:32 | MHC.CM.PN ---
per rounds pt to have picc placed today will be ready for dc tomorrow pt will be getting iv dapto for 6 weeks start date being 12/05
[2020-12-07 13:50] LABS: Ferritin 772 ng/mL (20-250)
[2020-12-07 13:53] LABS: Folate 8.3 ng/mL (> or = 4.0); Vitamin B12 518 pg/mL (200-900)
--- NOTE | 2020-12-07 14:47 | P.PICC_ITS ---
PICC Line Insertion NPICC Diagnosis: PSOAS ABSCESS Indication: ALF IV ANTIBIOTICS Pertinent Labs: REVIEWED Technique: Following informed consent including risks, benefits and alternatives and using sterile technique including cap and mask, sterile gown, glove and drape, the RIGHT arm was prepped and draped in the usual sterile fashion of full barrier technique with G. Following completion of [place] Protocol the skin and soft tissues were anesthetized with 1% Lidocaine plain. Using ultrasound guidance, BASILIC vein access was obtained ON SECOND ATTEMPT BY THIS RN. Over an 0.018 wire through peel-away sheath, a SINGLE LUMEN, PASV, 4-NICARAGUAN PICC line was positioned. Catheter length is 43 CM internal length, 0 CM external length, for a total trimmed length of 43 CM. The procedure was performed in [facility]. Tip verification was performed by Shravan Lugo with Lavinia 3CG. Tip located in SVC. Ultrasound was used to document vein patency and for needle entry. A formal ultrasound picture and cardiac rhythm strip was recorded. Vascular Clinical Trials Manager has released the line for use and it is currently dressed with a StatLock, Tegaderm, and CHG disc. Verification has been performed for blood return and line patency. Arm Circumference: 32 CM Equipment: [employer] POWERPICC SOLO Catheter Type: SINGLE LUMEN, PASV, 4-NICARAGUAN Lot #: [id number]
[2020-12-07] MEDS: DAPTOmycin 700 MG in 0.9 % Sodium Chloride 50 ML 99.78 MG IV (15:13)
--- NOTE | 2020-12-07 15:27 | MHC.CM.PN ---
PT WILL REQUIRE STR FOR IV ABX AND PT. PICC PLACED TODAY AND UPDATES SENT TO SN[facility]. CURRENTLY AWAITING RESPONSE CONFIRMING BED OFFERS INSURANCE AUTH WILL BE REQUIRED
[2020-12-07] MEDS: 0.9 % Sodium Chloride Flush 10 ML SYRINGE 5 ML IVFLUSH ×2 (15:31→20:59)
[2020-12-07] MEDS: lamoTRIgine 25 MG TABLET PO (20:58)
[2020-12-08] VITALS (10 sets, daily range): BP systolic 112–134; BP diastolic 66–80; PULSE 64–97; RESP 16–20; TEMP 36.5–37.1; O2SAT 94–96
[2020-12-08] MEDS: Acetaminophen 325 MG TABLET 650 MG PO ×2 (05:48→18:04)
[2020-12-08] MEDS: Heparin Sodium,Porcine 5,000 UNIT/ML VIAL 5000 UNIT SUBCUT ×3 (05:48→20:01)
[2020-12-08] MEDS: Metoprolol Tartrate 50 MG TABLET PO ×2 (08:03→20:02)
[2020-12-08] MEDS: amLODIPine Besylate 5 MG TABLET 10 MG PO (08:03)
[2020-12-08] MEDS: Docusate Sodium 100 MG CAPSULE PO ×2 (08:03→20:01)
[2020-12-08] MEDS: Cyclobenzaprine HCl 5 MG TABLET PO ×3 (08:03→20:02)
[2020-12-08] MEDS: Gabapentin 100 MG CAPSULE 200 MG PO ×2 (08:03→20:02)
[2020-12-08] MEDS: polyethylene glycoL 3350 17 GM POWD.PACK PO (08:04)
[2020-12-08] MEDS: Lidocaine 4 % Patch ADH..PATCH 1 PATCH TRANSDERMA (08:04)
[2020-12-08] MEDS: 0.9 % Sodium Chloride Flush 3 ML SYRINGE IVFLUSH ×2 (08:05→18:04)
[2020-12-08] MEDS: 0.9 % Sodium Chloride Flush 10 ML SYRINGE 5 ML IVFLUSH ×3 (08:06→20:07)
[2020-12-08] MEDS: Nystatin Powder 15 GM BOTTLE 1 APPL TOPICAL ×2 (08:08→20:09)
--- NOTE | 2020-12-08 11:14 | PM.DS ---
DS: Providers Provider Date of Service: 12/09/20 Date of admission: 11/22/20 03:35 Date of discharge: 12/09/20 Primary care physician: Evy Carter MD Consults: 11/22/20 05:19 Consult to Infectious Diseases Routine Consulting Provider: Mita Qureshi Reason for consultation: leukocytosis 12/02/20 15:37 Consult to Cardiology Routine Consulting Provider: Ry Novak Reason for consultation: Persistent MSSA bacteremia, psoas abscess 12/03/20 12:40 Consult to Neurology Routine Consulting Provider: [facility] Reason for consultation: encephalopathy. MSSA bacteremia. underlying dementia? 12/03/20 12:41 Consult to Psychiatry Routine Consulting Provider: Psych Covering Reason for consultation: bipolar ?dementia. re-eval requested by family 12/05/20 12:50 Consult to General Surgery Routine Consulting Provider: Ronen King Reason for consultation: multiple psoas abscesses, MSSA bacteremia DS: Diagnosis Discharge Diagnosis (1) Psoas abscess: Status: Acute DS: Summary Hospital Course Hospital Course: 70-year-old male with a past medical history of hypertension, renal calculi, chronic back pain presented to the hospital with a chief complaint of abdominal pain. Patient reported until yesterday he has been doing well today he noted severe abdominal pain diffusely; denied any associated nausea vomiting.? Mentioned that he did not have any bowel movement over the past couple days; has been passing gas. Denies any fever chills or cough. Reports he has generalized body aches; Patient mentioned that he has chronic back pain and gets steroid injections in the low back-lost received about 2 weeks ago; Review of all other systems is negative except mentioned above ER course: Per ER team patient on presentation noted to be toxic appearing; diaphoretic and in discomfort; CT chest abdomen pelvis showed no acute findings except for incidental finding of adrenal nodule; Lab showed leukocytosis of 24; afebrile; urinalysis showed WBC of 5 to 9; leukocyte esterase negative and nitrite negative.? Patient received Zosyn.? Blood cultures were sent.? Admitted for further management. Hospital course: 70-year-old male presented with back and neck pain-found to have MSSA bacteremia and so psoas abcess -He apparently had a large abscess aspirated last 11/30.patient was started on IV vancomycin and blood cultures repeated-seems to be clear last blood cultures on 12/04, patient patient will need total 6 weeks of antibiotic-end date will be 01/16/2021. repeat L-spine shows multiple fluid collections around psoas, but given clearance of bloodstream, discussed with surgery and Infectious Disease -plan to manage medically with IV antibiotics as above. Please check CBC, BMP, LFT, CPK weekly while the patient is on daptomycin. Encephalopathy seems to be improved, no emboli on brain MRI.neurology recomeded to treat bacteremia as above. neck pain: CT C-spine negative for cervical epidural abscess seems improving , continue lidocaine patch, prn hydromorphone mood disorder/hypomania- continue lamotrigine.? Psych re-consulted 12/03; to consider increase lamotrigine to 50 mg qhs around 12/13/20 DIEGO- resolved, was likely due to excess NSAID use [avoid]; lisinopril, restart HCTZ. HTN- amlodipine + metoprolol; lisinopril,restart HCTZ . Above management discussed with the patient in detail length he understand and in agreement with the above plan, time spent 50 minutes and 50% time spent on counseling. Significant findings: As above. Procedures performed: None. Treatment and response: As above. Complications: None. Time Spent with Patient Time attestation: Total time spent providing and/or coordinating discharge services: Discharge coordination time: Greater than 30 minutes Quality: Stroke Does the patient have a stroke diagnosis?: No Physical Exam Vital Signs: Vital Signs: Last Vital Signs Temp 98.0 F 12/08/20 11:03 Pulse 74 12/08/20 11:03 Resp 18 12/08/20 11:03 BP 119/66 12/08/20 11:03 Pulse Ox 94 12/08/20 11:03 Body Mass Index 31.4 Appearance: Alert.? Oriented X3.? not in distress.? Eyes: Pupils equal, round and reactive to light.? Sclera nonicteric.? ENT: Pharynx normal.? Moist mucous membranes. cvs: rrr, [id number] , no murmur res: clear to auscultation ,no rhonchii or wheezing abd: no rebound or guarding ,nt, bs present. ext pulses present , no cyanosis ,Gait well balanced well coordinated.left elbow healed ulcer neuro: axo3 , nonfocal. DS: Data Data Completed and Pending Labs on day of discharge: Laboratory Results - last 24 hr 12/07/20 12/07/20 12/07/20 10:06 10:06 10:06 Absolute Retic 0.122 H Percent Retic 4.2 H Immature Retic Fraction 20.5 H Retic Hgb Equivalent 30.9 Iron 23 L TIBC 225 L % Saturation 10 L Unsat Iron Binding 202 Ferritin 772 H Lactate Dehydrogenase 164 Vitamin B12 518 Folate 8.3 COVID-19 ([facility]) COVID-19 Clin Com 12/07/20 12:30 Absolute Retic Percent Retic Immature Retic Fraction Retic Hgb Equivalent Iron TIBC % Saturation Unsat Iron Binding Ferritin Lactate Dehydrogenase Vitamin B12 Folate COVID-19 ([facility]) Negative COVID-19 Clin Com See Note Preliminary micro results at discharge 12/05/20 06:07 Blood Culture - Preliminary Blood - Venous No growth after 48 hours. 12/05/20 06:07 Blood Culture - Preliminary Blood - Venous No growth after 48 hours. Discharge Plan Discharge Patient Disposition: [facility] Discharge Diagnosis: sepsis , MSSA bacteremia, psoas abcess . Referrals: [facility] [Other] - 1 Week Mita Qureshi MD [Physician] - 1 Week (follow up outpatiently) Caro Rodriguez MD [Physician] - 1 Week (follow up outaptiently) Evy Carter MD [Primary Care Provider] - 1 Week Ronen King MD [Physician] - 1 Week (follow up outpatiently) Discharge Medications: New sennosides [Senna Lax] 8.6 mg Tablet 17.2 mg PO BEDTIME PRN (Reason: Constipation) Qty: 30 RF: 0 acetaminophen 325 mg Tablet 650 mg PO Q6H Qty: 30 RF: 0 polyethylene glycol 3350 17 gram Powder In Packet 17 g PO DAILY Qty: 14 RF: 0 amlodipine 5 mg Tablet 10 mg PO DAILY Qty: 30 RF: 0 lamotrigine 25 mg Tablet 25 mg PO BEDTIME Qty: 30 RF: 0 metoprolol tartrate 50 mg Tablet 50 mg PO BID Qty: 60 RF: 0 docusate sodium 100 mg Capsule 100 mg PO BID Qty: 30 RF: 0 daptomycin 350 mg recon soln 707 mg IV Q24H Qty: 38 RF: 0 cyclobenzaprine 5 mg Tablet 5 mg PO TID Qty: 10 RF: 0 lidocaine-menthol 5-6 % kit See Rx Instructions .ROUTE .COMPLEX Qty: 1 RF: 0 hydromorphone [Dilaudid] 2 mg tablet 2 mg PO Q6H PRN (Reason: pain) Qty: 10 RF: 0 Continued atorvastatin 20 mg tablet 1 tab PO BEDTIME RF: 0 bupropion HCl 150 mg tablet extended release 24 hr 1 tab PO QAM RF: 0 lisinopril 10 mg tablet 1 tab PO DAILY RF: 0 gabapentin 300 mg capsule PO RF: 0 hydrochlorothiazide 25 mg tablet 1 tab PO DAILY RF: 0 Discontinued amlodipine 5 mg tablet 1 tab PO DAILY RF: 0 Discharge Orders: Discharge Order (Routine); Ordered 12/08/20 Ordered By: Jeremy Hayward Diet: advance to usual diet and low salt diet Activity on Discharge: As tolerated Stand Alone Forms: Patient Portal Discharge page Care Plan Goals: 70-year-old male presented with back and neck pain-found to have MRSA bacteremia and so psoas abcess -patient was started on IV antibiotics and blood cultures repeated-seems to be clear last blood cultures on 12/04, patient patient will need total 6 weeks of antibiotic-end date will be 01/16/2021. Please check CBC, BMP, LFT, CPK weekly while the patient is on daptomycin. Encephalopathy seems to be improved, no emboli on brain MRI.neurology recomeded to treat bacteremia as above. neck pain: CT C-spine negative for cervical epidural abscess seems improving , continue lidocaine patch, prn hydromorphone Health Concerns: as above. Plan of Treatment: As above. Assessment: As above. Discharge Date/Time: 12/09/20 20:09
[2020-12-08] MEDS: DAPTOmycin 700 MG in 0.9 % Sodium Chloride 50 ML 99.78 MG IV (13:35)
--- NOTE | 2020-12-08 14:39 | MHC.CM.PN ---
met with pt who lives alone reports having 2 sons who are always helping her she does not anticapate needing servceis when dcd dc plan hopme no services
--- NOTE | 2020-12-08 15:42 | P.PNIM_ITS ---
Subjective Subjective Date of Service: 12/08/20 Interval History: Neck and back pain Review of Systems Neck pain and back pain seems to be improving, Denies any chest pain or shortness of breath or fever or chills. Physical Exam Vital Signs: Vital Signs: Last Vital Signs Temp 98 F 12/08/20 15:17 Pulse 95 12/08/20 15:17 Resp 18 12/08/20 15:17 BP 128/68 12/08/20 15:17 Pulse Ox 95 12/08/20 15:17 Body Mass Index 31.4 Appearance: Alert.? Oriented X3.? not in distress.? Eyes: Pupils equal, round and reactive to light.? Sclera nonicteric.? ENT: Pharynx normal.? Moist mucous membranes. cvs: rrr, [id number] , no murmur res: clear to auscultation ,no rhonchii or wheezing abd: no rebound or guarding ,nt, bs present. ext pulses present , no cyanosis ,Gait well balanced well coordinated.left elbow healed ulcer neuro: axo3 , nonfocal. Objective Data Active Medications Acetaminophen (Acetaminophen 325 Mg Tablet) 650 mg PO Q6H [facility] Last Admin: 12/08/20 13:38 Dose: Not Given Documented by: ALVARO Non-Admin Reason: Patient Refused Amlodipine Besylate (Amlodipine Besylate 5 Mg Tablet) 10 mg PO DAILY [facility]; Protocol Last Admin: 12/08/20 08:03 Dose: 10 mg Documented by: ALVARO Cyclobenzaprine HCl (Cyclobenzaprine Hcl 5 Mg Tablet) 5 mg PO TID [facility] Last Admin: 12/08/20 13:34 Dose: 5 mg Documented by: ALVARO Docusate Sodium (Docusate Sodium 100 Mg Capsule) 100 mg PO BID [facility] Last Admin: 12/08/20 08:03 Dose: 100 mg Documented by: ALVARO Gabapentin (Gabapentin 100 Mg Capsule) 200 mg PO BID [facility] Last Admin: 12/08/20 08:03 Dose: 200 mg Documented by: ALVARO Heparin Sodium (Porcine) (Heparin Sodium,Porcine 5,000 Unit/Ml Vial) 5,000 unit SUBCUT Q8H [facility] Last Admin: 12/08/20 13:35 Dose: 5,000 unit Documented by: ALVARO Hydromorphone HCl (Hydromorphone Hcl 0.5 Mg/0.5 Ml Syringe) 0.5 mg IVPUSH Q4H PRN; Protocol PRN Reason: severe pain Last Admin: 12/07/20 00:02 Dose: 0.5 mg Documented by: JANIE Daptomycin 700 mg/ Sodium (Chloride) 64 mls @ 99.783 mls/hr IV Q24H [facility] Last Admin: 12/08/20 13:35 Dose: 99.78 mls/hr Documented by: ALVARO Lamotrigine (Lamotrigine 25 Mg Tablet) 25 mg PO BEDTIME [facility] Last Admin: 12/07/20 20:58 Dose: 25 mg Documented by: JANIE Lidocaine (Lidocaine 4 % Patch Adh..Patch) 1 patch TRANSDERMA DAILY [facility]; Protocol Last Admin: 12/08/20 08:04 Dose: 1 patch Documented by: ALVARO Metoprolol Tartrate (Metoprolol Tartrate 50 Mg Tablet) 50 mg PO BID [facility]; Protocol Last Admin: 12/08/20 08:03 Dose: 50 mg Documented by: ALVARO Mineral Oil (Mineral Oil Enema 133 Ml Enema) 133 ml GA ONCE PRN PRN Reason: constipation Last Admin: 11/23/20 11:24 Dose: 133 ml Documented by: YOGI Nystatin (Nystatin Powder 15 Gm Bottle) 1 appl TOPICAL BID [facility]; Protocol Last Admin: 12/08/20 08:08 Dose: 1 appl Documented by: ALVARO Polyethylene Glycol (Polyethylene Glycol 3350 17 Gm Powd.Pack) 17 gm PO DAILY [facility] Last Admin: 12/08/20 08:04 Dose: 17 gm Documented by: ALVARO Senna (Sennosides 8.6 Mg Tablet) 17.2 mg PO BEDTIME PRN PRN Reason: Constipation Sodium Chloride (0.9 % Sodium Chloride Flush 3 Ml Syringe) 3 ml IVFLUSH QSHIFT [facility] Last Admin: 12/08/20 08:05 Dose: 3 ml Documented by: ALVARO Sodium Chloride (0.9 % Sodium Chloride Flush 10 Ml Syringe) 5 ml IVFLUSH TID [facility] Last Admin: 12/08/20 13:37 Dose: 5 ml Documented by: [email or web address] Temazepam (Temazepam 15 Mg Capsule) 15 mg PO BEDTIME PRN PRN Reason: insomnia Last Admin: 12/05/20 21:09 Dose: 15 mg Documented by: INDU Labs CBC & Chem 7: 12/07/20 10:06 12/07/20 10:06 Assessment and Plan (1) Psoas abscess: Status: Acute (2) Toxic metabolic encephalopathy: Status: Acute (3) Staphylococcus aureus bacteremia: Status: Acute Assessment and Plan: 70-year-old male presented with back and neck pain-found to have MSSA bacteremia and so psoas abcess -He apparently had a large abscess aspirated last 11/30.patient was started on IV vancomycin and blood cultures repeated-seems to be clear last blood cultures on 12/04, patient patient will need total 6 weeks of antibiotic-end date will be 01/16/2021. repeat L-spine shows multiple fluid collections around psoas, but given clearance of bloodstream, discussed with surgery and Infectious Disease -plan to manage medically with IV antibiotics as above. Please check CBC, BMP, LFT, CPK weekly while the patient is on daptomycin. Encephalopathy seems to be improved, no emboli on brain MRI.neurology recomeded to treat bacteremia as above. neck pain: CT C-spine negative for cervical epidural abscess seems improving , continue lidocaine patch, prn hydromorphone mood disorder/hypomania- continue lamotrigine.? Psych re-consulted 12/03; to cons ider increase lamotrigine to 50 mg qhs around 12/13/20 DIEGO- resolved, was likely due to excess NSAID use [avoid]; lisinopril, restart HCTZ. HTN- amlodipine + metoprolol; lisinopril,restart HCTZ . awaiting placement Quality Stroke Does the patient have a stroke diagnosis?: No VTE Prior VTE?: No VTE Risk Level:: Medical - moderate - high VTE Device Contraindication: Treatment Not Indicated VTE Drug Contraindication: N/A - Med Ordered
--- NOTE | 2020-12-08 15:52 | MHC.CM.PN ---
m et with pt contuinuing withbed search for ,pt ..pt willing to go to [facility] in [place] pt has [employer]uf[employer] reliant which requires 3 denials form contracted facilities search expended specific search in progress
[2020-12-08] MEDS: lamoTRIgine 25 MG TABLET PO (20:02)
[2020-12-09] VITALS (7 sets, daily range): BP systolic 114–132; BP diastolic 65–79; PULSE 80–99; RESP 18; TEMP 36.4–37.2; O2SAT 93–94
[2020-12-09] MEDS: Acetaminophen 325 MG TABLET 650 MG PO ×3 (00:26→14:35)
[2020-12-09] MEDS: 0.9 % Sodium Chloride Flush 3 ML SYRINGE IVFLUSH ×2 (00:26→17:38)
[2020-12-09] MEDS: Heparin Sodium,Porcine 5,000 UNIT/ML VIAL 5000 UNIT SUBCUT ×2 (05:57→14:38)
[2020-12-09] MEDS: Metoprolol Tartrate 50 MG TABLET PO (08:15)
[2020-12-09] MEDS: Cyclobenzaprine HCl 5 MG TABLET PO ×2 (08:16→14:35)
[2020-12-09] MEDS: amLODIPine Besylate 5 MG TABLET 10 MG PO (08:16)
[2020-12-09] MEDS: Gabapentin 100 MG CAPSULE 200 MG PO (08:17)
[2020-12-09] MEDS: Docusate Sodium 100 MG CAPSULE PO (08:17)
[2020-12-09] MEDS: 0.9 % Sodium Chloride Flush 10 ML SYRINGE 5 ML IVFLUSH (08:18)
[2020-12-09] MEDS: Lidocaine 4 % Patch ADH..PATCH 1 PATCH TRANSDERMA (08:19)
[2020-12-09] MEDS: polyethylene glycoL 3350 17 GM POWD.PACK PO (08:19)
[2020-12-09] MEDS: DAPTOmycin 700 MG in 0.9 % Sodium Chloride 50 ML 99.78 MG IV (14:40)
--- NOTE | 2020-12-09 15:54 | MHC.CM.PN ---
pt is being dcd today at 7:30 to [place] pt will notify his x elma cano will confirm that pt has been approved thru his ins t/w having spoke with josias reliant per cm no ins imfo was received fromhisanty hernadez ,josias gave verbal approval to this worker to send pt as she was authorizing the admisison
== END 2020-12-09 20:09 | disposition skilled nursing facility (03) | DRG 867 ==
LOC: HO.ED 01:14 → HO.IMC 03:52
PROVIDERS: Family Medicine; Hospitalist; Internal Medicine; Internal Medicine Cardiovascular Disease; Physician Assistant; Radiology Diagnostic Radiology; Admitting Provider Hospitalist; Emergency Provider Emergency Medicine; PCP Internal Medicine; Visit Provider Internal Medicine
DX: T80.29XA Infection following other infusion, transfusion and therapeutic injection, initial encounter (principal); A41.01 Sepsis due to Methicillin susceptible Staphylococcus aureus; J96.01 Acute respiratory failure with hypoxia; K68.12 Psoas muscle abscess; G93.41 Metabolic encephalopathy; G92 Toxic encephalopathy; J98.11 Atelectasis; N17.8 Other acute kidney failure; K59.00 Constipation, unspecified; G89.29 Other chronic pain; Z87.442 Personal history of urinary calculi; N14.1 Nephropathy induced by other drugs, medicaments and biological substances; F31.9 Bipolar disorder, unspecified; I10 Essential (primary) hypertension; T39.395A Adverse effect of other nonsteroidal anti-inflammatory drugs [NSAID], initial encounter; Y92.9 Unspecified place or not applicable; E87.6 Hypokalemia; T50.2X5A Adverse effect of carbonic-anhydrase inhibitors, benzothiadiazides and other diuretics, initial encounter; Z20.822 Contact with and (suspected) exposure to COVID-19; Z88.5 Allergy status to narcotic agent; Z79.899 Other long term (current) drug therapy
CPT/HCPCS: 36415; 36573; 70491; 70553; 71045; 71250; 71275; 72125; 72126; 72132; 74176; 75989; 78804; 80048; 80053; 80076; 80202; 81001; 82550; 82607; 82728; 82746; 83540; 83605; 83615; 83690; 83735; 84132; 84484; 85007; 85025; 85027; 85045; 85379; 85610; 85652; 85730; 86140; 87040; 87071; 87073; 87077; 87147; 87186; 87205; 87635; 93005; 93306; 93312; 94799; 96361; 96374; 96375; 97110; 97116; 97162; 99285; A9537; A9556; A9585; C1751; J0878; J1170; J1885; J2060; J2370; J2543; J3370; Q9967